=== PATIENT | female | born 1995 | race Caucasian/White ===

== ENCOUNTER 2016-08-29 15:34 | Outpatient (CLI) | payer MEDICAID ==
[2016-08-29 16:46] LABS: APPEARANCE,URINE SLIGHTLY-CLOUDY; BILIRUBIN,URINE NEGATIVE (NEGATIVE); GLUCOSE, URINE NEGATIVE (NEGATIVE); KETONES,URINE NEGATIVE (NEGATIVE); LEUKOCYTE ESTERASE,URINE MODERATE (NEGATIVE); NITRITE,URINE NEGATIVE (NEGATIVE); PROTEIN,URINE NEGATIVE (NEGATIVE); URINE BARBITURATES SCREEN NEGATIVE; URINE METHADONE SCREEN NEGATIVE; URINE OPIATES LOW NEGATIVE; URINE PHENCYCLIDINE SCREEN NEGATIVE; URINE SPECIFIC GRAVITY 1.013; UROBILINOGEN,URINE NEGATIVE mg/dL (<2.0)
== END 2016-08-29 17:11 | disposition home or self-care (01) ==
LOC: LC 15:34
PROVIDERS: ATTEND Obstetrics & Gynecology
PROC: 4A1HXCZ Monitoring of Products of Conception, Cardiac Rate, External Approach (ICD-10-PCS; principal; 2016-08-29)
DX: O48.0 Post-term pregnancy (principal); Z3A.40 40 weeks gestation of pregnancy
CPT/HCPCS: 59025; 80307; 81001

== ENCOUNTER 2016-09-05 02:44 | Inpatient (IN) | payer MEDICAID ==
[2016-09-05] MEDS ORDERED: PENICILLIN G-K 5 MILLION UNIT VIAL ONE ×5 (03:13→20:03)
[2016-09-05 03:24] LABS: APPEARANCE,URINE CLEAR; BILIRUBIN,URINE NEGATIVE (NEGATIVE); GLUCOSE, URINE NEGATIVE (NEGATIVE); KETONES,URINE NEGATIVE (NEGATIVE); LEUKOCYTE ESTERASE,URINE NEGATIVE (NEGATIVE); NITRITE,URINE NEGATIVE (NEGATIVE); PROTEIN,URINE NEGATIVE (NEGATIVE); URINE SPECIFIC GRAVITY 1.008; UROBILINOGEN,URINE NEGATIVE mg/dL (<2.0)
[2016-09-05 03:28] LABS: AMNISURE (ROM) POSITIVE (NEGATIVE)
[2016-09-05] MEDS ORDERED: PENICILLIN G POTASSIUM 5,000,000 UNIT in DEXTROSE 5%-WATER 100 ML IV ONE (03:29)
[2016-09-05 03:52] LABS: ABSOLUTE EOSINOPHILS # (AUTO) 0.1 10^3/uL (0.0-0.6); ABSOLUTE LYMPHOCYTES (AUTO) 2.1 10^3/uL (0.5-4.7); ABSOLUTE MONOCYTES (AUTO) 0.6 10^3/uL (0.1-1.4); ABSOLUTE NEUT (AUTO) 8.2 10^3/uL (1.7-8.2); BASOPHILS % (AUTO) 0.2 % (0-2); EOSINOPHILS % (AUTO) 1.2 % (0-6); HEMOGLOBIN 10.4 g/dL (12.0-15.5); HGB HCT DIFFERENCE 0.2; MEAN CORPUSCULAR HEMOGLOBIN 27.2 pg (27.0-33.4); MEAN CORPUSCULAR HGB CONC 33.6 g/dL (32.0-36.0); MEAN CORPUSCULAR VOLUME 81 fl (80-97); MONOCYTES % (AUTO) 5.4 % (3-13); RED BLOOD COUNT 3.83 10^6/uL (3.72-5.28); SEGMENTED NEUTROPHILS % (AUTO) 74.2 % (42-78)
[2016-09-05] MEDS: RINGERS SOLUTION,LACTATED 1,000 ML IV PRN ×2 (04:00→11:35)
[2016-09-05 04:16] LABS: URINE BARBITURATES SCREEN NEGATIVE; URINE METHADONE SCREEN NEGATIVE; URINE OPIATES LOW NEGATIVE; URINE PHENCYCLIDINE SCREEN NEGATIVE
[2016-09-05] MEDS ORDERED: OXYTOCIN/NORMAL SALINE 20 UNIT/1,000 ML RTUINJ ONE ×3 (05:57→22:03)
[2016-09-05] MEDS ORDERED: OXYTOCIN/NORMAL SALINE 1,000 ML IV PRN ×2 (06:01→23:39)
[2016-09-05] MEDS ORDERED: PENICILLIN G POTASSIUM 2,500,000 UNIT in DEXTROSE 5%-WATER 50 ML IV SCH (07:30)
--- NOTE | 2016-09-05 08:00 | L&D Flow Sheet ---
LD Flowsheet Datetime Report Generated by CPN: 09/05/2016 08:00 Datetime: 09/05/2016 07:45 Pitocin (milliunit): Pitocin Remains (milliunits) @ (Annotations: 6) ([facility], RN) Datetime: 09/05/2016 07:35 NBP Sys/Li/Mean (mmHg): 122 (QS system process) : 58 (QS system process) : 84 (QS system process) Pulse: 90 (QS system process) Respirations: 16 (Negra Marhefka, RN) Temperature (F): 98.5 (Negra Marhefka, RN) Temperature (C): 36.9 (QS system process) Temperature Route: Oral (Negra Marhefka, RN) Level of Consciousness: Fully Conscious (Nerga Marhefka, RN) DTR's/Clonus: DTRs 2+; No Clonus (Negra Marhefka, RN) Headache: Denies (Negra Marhefka, RN) Breath Sounds, Left: Clear and Equal (Negra Marhefka, RN) Breath Sounds, Right: Clear and Equal (Negra Marhefka, RN) Nausea/Vomiting: Denies (Negra Marhefka, RN) RUQ Epigastric Pain: Denies (Negra Marhefka, RN) LaborFlag: Labor (QS system process) Datetime: 09/05/2016 07:31 Communication Comments: Dr. Lopez called L_D. Report including SROM, GBS pos, FHR, UC pattern, Pitocin. Plan of care discussed. No new orders received. (Anastasia Small RN) Datetime: 09/05/2016 07:30 Pitocin (milliunit): Pitocin Increased to (milliunits) @ (Annotations: 6) (Negra Goodman RN) Datetime: 09/05/2016 07:29 Pain Scale: 3 (Negra Goodman RN) Pain Presence: Intermittent (Negra Goodman RN) Pain Type: Contraction (Negra Goodman, RN) Pain Location: Abdomen; Back (Negra Goodman, RN) Pain Goal: 0 (Negra Goodman RN) Pain Relief Measures: Comfort Measures (Negra Goodman RN) Comfort Measures: Breathing/Relaxation; Rocking Chair (Negra Goodman RN) LaborFlag: Labor (QS system process) Datetime: 09/05/2016 07:15 Monitor Mode: External (Negra Goodman, RN) Frequency (min): 2-4 (Negra Goodman RN) Quality: Moderate (Negra Marhefka, RN) Duration (sec): 80-100 (Negra Marhefka, RN) Resting Tone (Palpate): Relaxed (Negra Marhefka, RN) Monitor Mode: External US (Negra Marhefka, RN) FHR Baseline Rate : 135 (Negra Marhefka, RN) FHR Baseline Changes: No Baseline Change (Negra Marhefka, RN) Variability: Moderate 6-25 bpm (Negra Marhefka, RN) Accelerations: 15X15 (Negra Marhefka, RN) Decelerations: None (Negra Marhefka, RN) Datetime: 09/05/2016 07:10 Communication: Report Given to @ R Rex RN (Magalys Parra, RN) Datetime: 09/05/2016 07:06 I/O Interventions: Up to BR (Negra Marhefka, RN) Datetime: 09/05/2016 07:05 NBP Sys/Li/Mean (mmHg): 126 (QS system process) : 59 (QS system process) : 85 (QS system process) Pulse: 93 (QS system process) LaborFlag: Labor (QS system process) Datetime: 09/05/2016 07:00 Monitor Mode: External; Palpation (Magalys Parra, RN) Frequency (min): 4-4.5 (Magalys Ledgerwood, RN) Quality: Mild/Moderate (Magalys Ledgerwood, RN) Duration (sec): 50-80 (Magalys Ledgerwood, RN) Duration Criteria: Less than Two 120 Second Contractions (Magalys Ledgerwood, RN) Pattern: Normal: <= 5 Contractions in 10 Minutes (Magalys Ledgerwood, RN) Resting Tone (Palpate): Relaxed (Magalys Ledgerwood, RN) Monitor Mode: External US (Magalys Noamgerras, RN) FHR Baseline Rate : 135 (Magalys Ledgerwood, RN) FHR Baseline Changes: No Baseline Change (Magalys Ledgerwood, RN) Variability: Moderate 6-25 bpm (Magalys Ledgerwood, RN) Accelerations: 15X15 (Magalys Ledgerwood, RN) Decelerations: None (Magalys Ledgerwood, RN) Pitocin (milliunit): Pitocin Remains (milliunits) @ 4 (Magalys Ledgerwood, RN) Datetime: 09/05/2016 06:45 Monitor Mode: External; Palpation (Magalys Ledgerwood, RN) Frequency (min): 2.5-3.5 (Magalys Ledgerwood, RN) Quality: Mild/Moderate (Magalys Ledgerwood, RN) Duration (sec): 50-80 (Magalys Ledgerwood, RN) Duration Criteria: Less than Two 120 Second Contractions (Magalys Ledgerwood, RN) Pattern: Normal: <= 5 Contractions in 10 Minutes (Magalys Ledgerwood, RN) Resting Tone (Palpate): Relaxed (Magalys Ledgerwood, RN) Monitor Mode: External US (Magalys Ledgerwood, RN) FHR Baseline Rate : 135 (Magalys Ledgerwood, RN) FHR Baseline Changes: No Baseline Change (Magalys Ledgerwood, RN) Variability: Moderate 6-25 bpm (Magalys Ledgerwood, RN) Accelerations: 15X15 (Magalys Ledgerwood, RN) Decelerations: None (Magalys Ledgerwood, RN) Pitocin (milliunit): Pitocin Remains (milliunits) @ 4 (Magalys Ledgerwood, RN) Datetime: 09/05/2016 06:40 Pitocin (milliunit): Pitocin Increased to (milliunits) @ 4 (Magalys Ledgerwood, RN) Datetime: 09/05/2016 06:35 NBP Sys/Li/Mean (mmHg): 124 (QS system process) : 66 (QS system process) : 87 (QS system process) Pulse: 83 (QS system process) LaborFlag: Labor (QS system process) Datetime: 09/05/2016 06:30 Monitor Mode: External; Palpation (Magalys Noamgerwood, RN) Frequency (min): 4.5-5.5 (Magalys Ledgerwood, RN) Quality: Mild/Moderate (Magalys Ledgerwood, RN) Duration (sec): 40-100 (Magalys Ledgerwood, RN) Duration Criteria: Less than Two 120 Second Contractions (Magalys Ledgerwood, RN) Pattern: Normal: <= 5 Contractions in 10 Minutes (Magalys Ledgerwood, RN) Resting Tone (Palpate): Relaxed (Magalys Ledgerwood, RN) Monitor Mode: External US (Magalys Ledgerwood, RN) FHR Baseline Rate : 135 (Magalys Ledgerwood, RN) FHR Baseline Changes: No Baseline Change (Magalys Ledgerwood, RN) Variability: Moderate 6-25 bpm (Magalys Ledgerwood, RN) Accelerations: None (Magalys Ledgerwood, RN) Decelerations: None (Magalys Ledgerwood, RN) Pitocin (milliunit): Pitocin Remains (milliunits) @ 2 (Magalys Ledgerwood, RN) Datetime: 09/05/2016 06:15 Monitor Mode: External; Palpation (Magalys Ledgerwood, RN) Frequency (min): 10.5 (Magalys Ledgerwood, RN) Quality: Mild/Moderate (Magalys Ledgerwood, RN) Duration (sec): 80 (Magalys Ledgerwood, RN) Duration Criteria: Less than Two 120 Second Contractions (Magalys Ledgerwood, RN) Pattern: Normal: <= 5 Contractions in 10 Minutes (Magalys Ledgerwood, RN) Resting Tone (Palpate): Relaxed (Magalys Ledgerwood, RN) Monitor Mode: External US (Magalys Ledgerwood, RN) FHR Baseline Rate : 135 (Magalys Ledgerwood, RN) FHR Baseline Changes: No Baseline Change (Magalys Ledgerwood, RN) Variability: Moderate 6-25 bpm (Magalys Ledgerwood, RN) Accelerations: 15X15 (Magalys Ledgerwood, RN) Decelerations: None (Magalys Ledgerwood, RN) Pitocin (milliunit): Pitocin Remains (milliunits) @ 2 ([facility], RN) Datetime: 09/05/2016 06:10 Pitocin (milliunit): Pitocin Started (milliunits) @ 2 ([facility], RN) Datetime: 09/05/2016 06:05 NBP Sys/Li/Mean (mmHg): 123 (QS system process) : 63 (QS system process) : 86 (QS system process) Pulse: 85 (QS system process) Respirations: 14 ([facility], RN) LaborFlag: Labor (QS system process) Datetime: 09/05/2016 06:00 Monitor Mode: External; Palpation (Magalys Ledgerwood, RN) Frequency (min): 2.5-5.5 (Magalys Ledgerwood, RN) Quality: Mild/Moderate (Magalys Ledgerwood, RN) Duration (sec): 60-120 (Magalys Ledgerwood, RN) Duration Criteria: Less than Two 120 Second Contractions (Magalys Ledgerwood, RN) Pattern: Normal: <= 5 Contractions in 10 Minutes (Magalys Ledgerwood, RN) Resting Tone (Palpate): Relaxed (Magalys Ledgerwood, RN) Monitor Mode: External US (Magalys Ledgerwood, RN) FHR Baseline Rate : 135 (Magalys Ledgerwood, RN) FHR Baseline Changes: No Baseline Change (Magalys Ledgerwood, RN) Variability: Moderate 6-25 bpm (Magalys Ledgerwood, RN) Accelerations: 15X15 (Magalys Ledgerwood, RN) Decelerations: None (Magalys Ledgerwood, RN) Datetime: 09/05/2016 05:35 NBP Sys/Li/Mean (mmHg): 122 (QS system process) : 70 (QS system process) : 89 (QS system process) Pulse: 86 (QS system process) LaborFlag: Labor (QS system process) Datetime: 09/05/2016 05:32 Patient Position/Activity: Right Tilt (Magalys Ledgerwood, RN) Datetime: 09/05/2016 05:23 Monitor Interventions for FHR: Ultrasound Adjusted (Magalys Ledgerwood, RN) Datetime: 09/05/2016 05:20 Patient Position/Activity: Left Tilt (Magalys Ledgerwood, RN) Datetime: 09/05/2016 04:17 Patient Care Comments: monitors off, pt incouraged to walk (Magalys Ledgerwood, RN) Datetime: 09/05/2016 04:16 Monitor Mode: External; Palpation (Magalys Ledgerwood, RN) Frequency (min): 5.5-6.5 (Magalys Ledgerwood, RN) Quality: Mild/Moderate (Magalys Ledgerwood, RN) Duration (sec): 90-120 (Magalys Ledgerwood, RN) Duration Criteria: Less than Two 120 Second Contractions (Magalys Ledgerwood, RN) Pattern: Normal: <= 5 Contractions in 10 Minutes (Magalys Ledgerwood, RN) Resting Tone (Palpate): Relaxed (Magalys Ledgerwood, RN) Monitor Mode: External US (Magalys Ledgerwood, RN) FHR Baseline Rate : 135 (Magalys Ledgerwood, RN) FHR Baseline Changes: No Baseline Change (Magalys Ledgerwood, RN) Variability: Moderate 6-25 bpm (Magalys Ledgerwood, RN) Accelerations: 15X15 (Magalys Ledgerwood, RN) Decelerations: None (Magalys Ledgerwood, RN) Datetime: 09/05/2016 04:00 Monitor Mode: External; Palpation (Magalys Ledgerwood, RN) Frequency (min): irreg (Magalys Ledgerwood, RN) Quality: Mild/Moderate (Magalys Ledgerwood, RN) Duration (sec): 60-100 (Magalys Ledgerwood, RN) Duration Criteria: Less than Two 120 Second Contractions (Magalys Ledgerwood, RN) Pattern: Normal: <= 5 Contractions in 10 Minutes (Magalys Ledgerwood, RN) Resting Tone (Palpate): Relaxed (Magalys Ledgerwood, RN) Monitor Mode: External US (Magalys Ledgerwood, RN) FHR Baseline Rate : 135 (Magalys Ledgerwood, RN) FHR Baseline Changes: No Baseline Change (Magalys Ledgerwood, RN) Variability: Moderate 6-25 bpm (Magalys Ledgerwood, RN) Accelerations: 15X15 (Magalys Ledgerwood, RN) Decelerations: None (Magalys Ledgerwood, RN) Datetime: 09/05/2016 03:56 Antibiotics: Penicillin IV (Units) @ 5 mil (Magalys Ledgerwood, RN) Datetime: 09/05/2016 03:55 IV/Blood Work: IV Started; New IV Bag Hung (Magalys Parra RN) Patient Care Comments: 18 G left hand by Daiana Parra RN (Magalys Parra RN) Datetime: 09/05/2016 03:40 Procedures: Labs Drawn (Magalys Parra RN) Datetime: 09/05/2016 03:31 Communication: Provider Orders Received; Call/Page Placed to Provider (Magalys Parra RN) Communication Comments: Dr Bradley was notified via phone of pt's complaints, VE, labs, FHR. Order to walk till 6 am received. Epidural is available to pt, at 6 am start Pitocin. (Magalys Ledgerwood, RN) Datetime: 09/05/2016 03:30 Monitor Mode: External; Palpation (Magalys Ledgerwood, RN) Frequency (min): irreg (Magalys Ledgerwood, RN) Quality: Mild/Moderate (Magalys Ledgerwood, RN) Duration (sec): 70-80 (Magalys Ledgerwood, RN) Duration Criteria: Less than Two 120 Second Contractions (Magalys Ledgerwood, RN) Pattern: Normal: <= 5 Contractions in 10 Minutes (Magalys Ledgerwood, RN) Resting Tone (Palpate): Relaxed (Magalys Ledgerwood, RN) Monitor Mode: External US (Magalys Ledgerwood, RN) FHR Baseline Rate : 135 (Magalys Ledgerwood, RN) FHR Baseline Changes: No Baseline Change (Magalys Ledgerwood, RN) Variability: Moderate 6-25 bpm (Magalys Ledgerwood, RN) Accelerations: None (Magalys Ledgerwood, RN) Decelerations: None (Magalys Ledgerwood, RN) Datetime: 09/05/2016 03:29 NBP Sys/Li/Mean (mmHg): 108 (QS system process) : 58 (QS system process) : 78 (QS system process) Pulse: 94 (QS system process) LaborFlag: Labor (QS system process) Datetime: 09/05/2016 02:59 NBP Sys/Li/Mean (mmHg): 100 (QS system process) : 61 (QS system process) : 70 (QS system process) Pulse: 93 (QS system process) Pain Scale: 1 (Magalys Parra RN) Pain Presence: Intermittent (Magalys Parra RN) Pain Type: Contraction (Magalys Parra RN) Pain Location: Back (Magalys Parra RN) Pain Relief Measures: Comfort Measures (Magalys Parra RN) Pain Coping: Talking Through Contractions (Annotations: no distress noted) (Magalys Parra RN) Vaginal Bleeding: None (Magalys Parra RN) Level of Consciousness: Fully Conscious (Magalys Parra RN) DTR's/Clonus: DTRs 2+; No Clonus (Magalys Parra RN) Headache: Denies (Magalys Parra RN) Breath Sounds, Left: Clear and Equal (Magalys Parra RN) Breath Sounds, Right: Clear and Equal (Magalys Parra RN) Nausea/Vomiting: Denies (Magalys Parra RN) RUQ Epigastric Pain: Denies (Magalys Parra RN) Instructional Method: Demo; Verbal; Patient Instructed (Magalys Parra RN) Plan of Care: Plan of Care Discussed; Vaginal Delivery; Labor (Magalys Parra RN) Unit Routine: Queen to Room; Call Agudelo; Bed; Visiting Policy; Waiting Areas; Handwashing; Monitoring; Safety/Fall Risk Prevention (Magalys Parra RN) LaborFlag: Labor (QS system process) Datetime: 09/05/2016 02:55 Dilatation (cm): 1.5 (Magalys Parra RN) Effacement (%): 60 (Magalys Parra RN) Station: -2 (Magalys Parra RN) Exam by: Daiana Parra RN (Magalys Parra RN) Datetime: 09/05/2016 02:40 Stage of : Labor (Magalys Parra RN)
[2016-09-05] MEDS: PENICILLIN G-K 5 MILLION UNIT VIAL IV SCH ×4 (08:07→20:09)
[2016-09-05] MEDS ORDERED: ONDANSETRON HCL INJ/PF 4 MG/2 ML SDV ONE (08:18)
[2016-09-05] MEDS ORDERED: METOCLOPRAMIDE HCL INJ/PF 10 MG/2 ML SDV ONE (08:18)
[2016-09-05] MEDS ORDERED: PHENYLEPHRINE HCL INJ/PF 10 MG/1 ML SDV ONE (08:18)
[2016-09-05] MEDS ORDERED: DEXAMETHASONE SOD PHOSPHATE INJ 4 MG/1 ML VIAL ONE (08:18)
[2016-09-05] MEDS ORDERED: KETOROLAC TROMETHAMINE 60 MG/2 ML SDV ONE (08:18)
[2016-09-05] MEDS ORDERED: EPHEDRINE SULFATE INJ 50 MG/1 ML AMPULE ONE ×2 (08:46→22:03)
[2016-09-05] MEDS ORDERED: FENTANYL/BUPIVACAINE/NS/PF 200 MCG/100 ML RTUINJ EPI ONE (08:47)
[2016-09-05] MEDS ORDERED: BUPIVACAINE HCL 0.25 % INJ/PF (2.5 MG/1 ML) 30 ML VIAL ONE (08:47)
[2016-09-05] MEDS ORDERED: BUPIVACAINE HCL 0.25 % INJ/PF (2.5 MG/1 ML) 30 ML VIAL INFIL ONE (08:49)
--- NOTE | 2016-09-05 10:00 | L&D Flow Sheet ---
LD Flowsheet Datetime Report Generated by CPN: 09/05/2016 10:00 Datetime: 09/05/2016 09:59 NBP Sys/Li/Mean (mmHg): 118 (QS system process) : 60 (QS system process) : 86 (QS system process) Pulse: 114 (QS system process) LaborFlag: Labor (QS system process) Datetime: 09/05/2016 09:58 NBP Sys/Li/Mean (mmHg): 124 (QS system process) : 59 (QS system process) : 85 (QS system process) Pulse: 92 (QS system process) LaborFlag: Labor (QS system process) Datetime: 09/05/2016 09:56 NBP Sys/Li/Mean (mmHg): 124 (QS system process) : 58 (QS system process) : 84 (QS system process) Pulse: 86 (QS system process) LaborFlag: Labor (QS system process) Datetime: 09/05/2016 09:55 NBP Sys/Li/Mean (mmHg): 127 (QS system process) : 60 (QS system process) : 86 (QS system process) Pulse: 95 (QS system process) LaborFlag: Labor (QS system process) Datetime: 09/05/2016 09:54 NBP Sys/Li/Mean (mmHg): 134 (QS system process) : 60 (QS system process) : 87 (QS system process) Pulse: 97 (QS system process) LaborFlag: Labor (QS system process) Datetime: 09/05/2016 09:53 Epidural Procedure: Cath Placed (Chandrika Cal, RN) Epidural Procedure: Test Dose (Chandrika Cal, RN) Datetime: 09/05/2016 09:45 Procedure Verify: Correct Patient Identity; Correct Side and Site are Marked; Accurate Procedure Consent Form; Agreement on Procedure to be Done; Correct Patient Position (Chandrika Cal, RN) Datetime: 09/05/2016 09:44 Anesthesia Comments: Dr. Trent at bedside (Chandrika Cal, RN) Datetime: 09/05/2016 09:43 Epidural Positioning: Sitting (Chandrika Cal, RN) Datetime: 09/05/2016 09:36 Procedure Verify: Correct Patient Identity; Correct Side and Site are Marked; Accurate Procedure Consent Form; Agreement on Procedure to be Done; Correct Patient Position; Relevant Images and Results are Properly Labeled and Displayed; Addressed Need to Administer Antibiotics or Fluids for Irrigation; Safety Precautions Based on Patient History or Medication Use (Negra Goodman RN) Anesthesia Plans: Epidural (Negra Goodman RN) Epidural Positioning: Sitting (Negra Goodman RN) Datetime: 09/05/2016 09:00 Monitor Mode: External (Negra Marhefka, RN) Frequency (min): 1-3 (Negra Marhefka, RN) Quality: Moderate (Negra Marhefka, RN) Duration (sec): 60-110 (Negra Marhefka, RN) Resting Tone (Palpate): Relaxed (Negra Marhefka, RN) Monitor Mode: External US (Negra Marhefka, RN) FHR Baseline Rate : 135 (Negra Marhefka, RN) FHR Baseline Changes: No Baseline Change (Negra Marhefka, RN) Variability: Moderate 6-25 bpm (Negra Marhefka, RN) Accelerations: 15X15 (Negra Marhefka, RN) Decelerations: None (Negra Marhefka, RN) Pitocin (milliunit): Pitocin Remains (milliunits) @ (Annotations: 10) (Negra Marhefka, RN) Datetime: 09/05/2016 08:45 Monitor Mode: External (Negra Marhefka, RN) Frequency (min): 2-3 (Negra Duranfkristina, RN) Quality: Moderate (Negra Garzonfka, RN) Duration (sec): 70-120 (Negra Goodman, RN) Resting Tone (Palpate): Relaxed (Negra Goodman, RN) Monitor Mode: External US (Negra Goodman, RN) FHR Baseline Rate : 135 (Negra Garzonfka, RN) FHR Baseline Changes: No Baseline Change (Negra Garzonfka, RN) Variability: Moderate 6-25 bpm (Negra Marsusanfka, RN) Accelerations: 15X15 (Negra Marsusanfka, RN) Decelerations: None (Negra Garzonfka, RN) Pitocin (milliunit): Pitocin Remains (milliunits) @ (Annotations: 10) (Negra Duranfka, RN) Datetime: 09/05/2016 08:43 Dilatation (cm): 5.0 (Negra Goodman, RN) Effacement (%): 80 (Negra Goodman, RN) Station: -1 (Negra Goodman, RN) Exam by: Komal Goodman RN (Negra Garzonfkristina, RN) Datetime: 09/05/2016 08:30 Monitor Mode: External (Negra Marhefka, RN) Frequency (min): 2-2.5 (Negra Marhefka, RN) Quality: Moderate (Negra Marhefka, RN) Duration (sec): 50-80 (Negra Marhefka, RN) Resting Tone (Palpate): Relaxed (Negra Marhefka, RN) Monitor Mode: External US (Negra Marhefka, RN) FHR Baseline Rate : 135 (Negra Marhefka, RN) FHR Baseline Changes: No Baseline Change (Negra Marhefka, RN) Variability: Moderate 6-25 bpm (Negra Marhefka, RN) Accelerations: 15X15 (Negra Marhefka, RN) Decelerations: None (Negra Marhefka, RN) Pitocin (milliunit): Pitocin Increased to (milliunits) @ (Annotations: 10) (Negra Marhefka, RN) Datetime: 09/05/2016 08:20 Patient Care Comments: pt standing at bedside. (Negra Marhefka, RN) Datetime: 09/05/2016 08:15 Monitor Mode: External (Negra Marhefka, RN) Frequency (min): 2-4 (Negra Marhefka, RN) Quality: Moderate (Negra Marhefka, RN) Duration (sec): 60-80 (Negra Marhefka, RN) Resting Tone (Palpate): Relaxed (Negra Marhefka, RN) Monitor Mode: External US (Negra Marhefka, RN) FHR Baseline Rate : 135 (Negra Marhefka, RN) FHR Baseline Changes: No Baseline Change (Negra Marhefka, RN) Variability: Moderate 6-25 bpm (Negra Marhefka, RN) Accelerations: 15X15 (Negra Marhefka, RN) Decelerations: None (Negra Marhefka, RN) Pitocin (milliunit): Pitocin Remains (milliunits) @ (Annotations: 8) (Negra Marhefka, RN) Datetime: 09/05/2016 08:14 I/O Interventions: Up to BR (Negra Marhefka, RN) Datetime: 09/05/2016 08:06 NBP Sys/Li/Mean (mmHg): 104 (QS system process) : 60 (QS system process) : 74 (QS system process) Pulse: 68 (QS system process) LaborFlag: Labor (QS system process) Datetime: 09/05/2016 08:00 Monitor Mode: External (Negra Goodman RN) Frequency (min): 2-4 (Negra Goodman RN) Quality: Moderate (Negra Goodman RN) Duration (sec): 80-100 (Negra Goodman RN) Resting Tone (Palpate): Relaxed (Negra Goodman RN) Monitor Mode: External US (Negra Goodman RN) FHR Baseline Rate : 135 (Negra Goodman RN) FHR Baseline Changes: No Baseline Change (Negra Goodman RN) Variability: Moderate 6-25 bpm (Negra Goodman RN) Accelerations: 15X15 (Negra Goodman RN) Decelerations: None (Negra Goodman RN) Pitocin (milliunit): Pitocin Increased to (milliunits) @ (Annotations: 8) (Negra Goodman RN) Antibiotics: Penicillin IV (Units) @ 2.5 Million (Negra Goodman RN)
[2016-09-05] MEDS: EPHEDRINE SULFATE INJ 50 MG/1 ML AMPULE IV PRN ×3 (10:28→10:43)
[2016-09-05] MEDS: FENTANYL/BUPIVACAINE/NS/PF 100 ML EPI PRN ×2 (11:40→19:31)
--- NOTE | 2016-09-05 12:00 | L&D Flow Sheet ---
LD Flowsheet Datetime Report Generated by CPN: 09/05/2016 12:00 Datetime: 09/05/2016 11:27 NBP Sys/Li/Mean (mmHg): 99 (QS system process) : 56 (QS system process) : 70 (QS system process) Pulse: 80 (QS system process) LaborFlag: Labor (QS system process) Datetime: 09/05/2016 11:21 NBP Sys/Li/Mean (mmHg): 98 (QS system process) : 51 (QS system process) : 72 (QS system process) Pulse: 87 (QS system process) IV/Blood Work: New IV Bag Hung (Chandrika Mccall RN) LaborFlag: Labor (QS system process) Datetime: 09/05/2016 11:17 NBP Sys/Li/Mean (mmHg): 110 (QS system process) : 56 (QS system process) : 80 (QS system process) Pulse: 83 (QS system process) Patient Position/Activity: Hands-Knees (Chandrika Mccall RN) LaborFlag: Labor (QS system process) Datetime: 09/05/2016 11:15 Monitor Mode: External (Ngera Goodman RN) Frequency (min): 3-5 (Negra Goodman RN) Quality: Moderate (Negra Goodman RN) Duration (sec): 90-220 (Negra Goodman RN) Resting Tone (Palpate): Relaxed (Negra Goodman RN) Monitor Mode: External US (Negra Goodman RN) FHR Baseline Rate : 150 (Negra Marhefka, RN) FHR Baseline Changes: No Baseline Change (Negra Marhefka, RN) Variability: Moderate 6-25 bpm (Negra Marhefka, RN) Accelerations: 15X15 (Negra Marhefka, RN) Decelerations: Late (Negra Marhefka, RN) Datetime: 09/05/2016 11:13 NBP Sys/Li/Mean (mmHg): 117 (QS system process) : 59 (QS system process) : 79 (QS system process) Pulse: 83 (QS system process) LaborFlag: Labor (QS system process) Datetime: 09/05/2016 11:06 NBP Sys/Li/Mean (mmHg): 107 (QS system process) : 63 (QS system process) : 79 (QS system process) Pulse: 73 (QS system process) LaborFlag: Labor (QS system process) Datetime: 09/05/2016 11:02 NBP Sys/Li/Mean (mmHg): 107 (QS system process) : 60 (QS system process) : 78 (QS system process) Pulse: 72 (QS system process) LaborFlag: Labor (QS system process) Datetime: 09/05/2016 11:00 Monitor Mode: External; Palpation (Negra Goodman RN) Frequency (min): 2-4 (Negra Goodman RN) Quality: Moderate (Negra Goodman RN) Duration (sec): 90-100 (Negra Goodman RN) Resting Tone (Palpate): Relaxed (Negra Goodman RN) Monitor Mode: External US (Negra Goodman RN) FHR Baseline Rate : 145 (Negra Goodman RN) FHR Baseline Changes: No Baseline Change (Negra Goodman RN) Variability: Moderate 6-25 bpm (Negra Goodman RN) Accelerations: 15X15 (Negra Goodman RN) Decelerations: Late; Variable (Negra Goodman RN) Dilatation (cm): 7.0 (Negra Goodman RN) Effacement (%): 90 (Negra Goodman RN) Station: -1 (Negra Goodman RN) Exam by: Komal Goodman RN (Negra Goodman RN) Vaginal Bleeding: Normal Show (Negra Goodman RN) Cervix, Consistency: Soft (Negra Goodman RN) Cervix, Position: Midposition (Negra Goodman RN) Datetime: 09/05/2016 10:56 NBP Sys/Li/Mean (mmHg): 110 (QS system process) : 57 (QS system process) : 77 (QS system process) Pulse: 93 (QS system process) Pitocin (milliunit): Pitocin Discontinued (Chandrika Mccall RN) Oxygen Method: Non-Rebreather (Chandrika Mccall RN) LaborFlag: Labor (QS system process) Datetime: 09/05/2016 10:52 NBP Sys/Li/Mean (mmHg): 115 (QS system process) : 60 (QS system process) : 80 (QS system process) Pulse: 87 (QS system process) LaborFlag: Labor (QS system process) Datetime: 09/05/2016 10:47 NBP Sys/Li/Mean (mmHg): 118 (QS system process) : 62 (QS system process) : 83 (QS system process) Pulse: 94 (QS system process) LaborFlag: Labor (QS system process) Datetime: 09/05/2016 10:45 Monitor Mode: External (Negra Marhefka, RN) Frequency (min): 2-4 (Negra Marhefka, RN) Quality: Moderate to Strong (Negra Marhefka, RN) Duration (sec): 60-70 (Negra Marhefka, RN) Resting Tone (Palpate): Relaxed (Negra Marhefka, RN) Monitor Mode: External US (Negra Marhefka, RN) FHR Baseline Rate : 145 (Negra Marhefka, RN) FHR Baseline Changes: No Baseline Change (Negra Marhefka, RN) Variability: Moderate 6-25 bpm (Negra Marhefka, RN) Accelerations: 15X15 (Negra Marhefka, RN) Decelerations: Late (Negra Marhefka, RN) Datetime: 09/05/2016 10:43 Anesthesia Interventions Other: Ephedrine (Negra Goodman, RN) Anesthesia Comments: 5 mg (Negra Goodman, RN) Datetime: 09/05/2016 10:42 NBP Sys/Li/Mean (mmHg): 115 (QS system process) : 59 (QS system process) : 81 (QS system process) Pulse: 94 (QS system process) Patient Position/Activity: Right Lateral; Peanut Ball; Low Fowlers (Negra Goodman, RN) LaborFlag: Labor (QS system process) Datetime: 09/05/2016 10:41 Communication Comments: Dr. Lopez at bedside to assess patient (Chandrika Mccall, RN) Datetime: 09/05/2016 10:36 NBP Sys/Li/Mean (mmHg): 95 (QS system process) : 46 (QS system process) : 67 (QS system process) Pulse: 74 (QS system process) Pitocin (milliunit): Pitocin Decreased to (milliunits) @ 4 (Negra Goodman, RN) LaborFlag: Labor (QS system process) Datetime: 09/05/2016 10:35 NBP Sys/Li/Mean (mmHg): 98 (QS system process) : 52 (QS system process) : 72 (QS system process) Pulse: 73 (QS system process) LaborFlag: Labor (QS system process) Datetime: 09/05/2016 10:32 NBP Sys/Li/Mean (mmHg): 95 (QS system process) : 48 (QS system process) : 68 (QS system process) Pulse: 74 (QS system process) LaborFlag: Labor (QS system process) Datetime: 09/05/2016 10:31 Medication Comments: ephedrine 5mg IV (Chandrika Cal, RN) Anesthesia Interventions Other: Ephedrine (Chandrika Cal, RN) Datetime: 09/05/2016 10:30 NBP Sys/Li/Mean (mmHg): 84 (QS system process) : 45 (QS system process) : 60 (QS system process) Pulse: 72 (QS system process) Monitor Mode: External (Negra Marhefka, RN) Frequency (min): 2-3 (Negra Marhefka, RN) Quality: Moderate to Strong (Negra Marhefka, RN) Duration (sec): 50-140 (Negra Marhefka, RN) Resting Tone (Palpate): Relaxed (Negra Marhefka, RN) Monitor Mode: External US (Negra Marhefka, RN) FHR Baseline Rate : 140 (Negra Marhefka, RN) FHR Baseline Changes: No Baseline Change (Negra Marhefka, RN) Variability: Moderate 6-25 bpm (Negra Marhefka, RN) Accelerations: None (Negra Marhefka, RN) Decelerations: Late (Negra Marhefka, RN) LaborFlag: Labor (QS system process) Datetime: 09/05/2016 10:28 Medication Comments: ephedrine 5 mg IV (Chandrika Mccall, RN) Anesthesia Interventions Other: Ephedrine (Chandrika Cal, RN) Datetime: 09/05/2016 10:27 NBP Sys/Li/Mean (mmHg): 86 (QS system process) NBP Sys/Li/Mean (mmHg): 85 (QS system process) : 48 (QS system process) : 46 (QS system process) : 63 (QS system process) : 62 (QS system process) Pulse: 70 (QS system process) Pulse: 76 (QS system process) IV/Blood Work: IV Bolus Started (Chandrika Mccall RN) LaborFlag: Labor (QS system process) Datetime: 09/05/2016 10:21 NBP Sys/Li/Mean (mmHg): 109 (QS system process) : 58 (QS system process) : 81 (QS system process) Pulse: 88 (QS system process) LaborFlag: Labor (QS system process) Datetime: 09/05/2016 10:17 NBP Sys/Li/Mean (mmHg): 109 (QS system process) : 53 (QS system process) : 77 (QS system process) Pulse: 88 (QS system process) LaborFlag: Labor (QS system process) Datetime: 09/05/2016 10:15 Monitor Mode: External (Negra Goodman RN) Frequency (min): 2-3 (Negra Goodman RN) Quality: Moderate (Negra Goodman RN) Duration (sec): 70-90 (Negra Goodman RN) Resting Tone (Palpate): Relaxed (Negra Goodman RN) Monitor Mode: External US (Negra Goodman RN) Monitor Interventions for FHR: Ultrasound Adjusted (Negra Goodman RN) FHR Baseline Rate : 135 (Negra Goodman RN) FHR Baseline Changes: No Baseline Change (Negra Goodman RN) Variability: Moderate 6-25 bpm (Negra Goodman RN) Accelerations: None (Negra Goodman RN) Comments: RN @ bedside adjusting ultrasound (Negra Goodman RN) Pitocin (milliunit): Pitocin Remains (milliunits) @ (Annotations: 8) (Negra Goodman RN) Datetime: 09/05/2016 10:13 NBP Sys/Li/Mean (mmHg): 107 (QS system process) : 53 (QS system process) : 70 (QS system process) Pulse: 94 (QS system process) LaborFlag: Labor (QS system process) Datetime: 09/05/2016 10:06 NBP Sys/Li/Mean (mmHg): 103 (QS system process) : 54 (QS system process) : 76 (QS system process) Pulse: 106 (QS system process) LaborFlag: Labor (QS system process) Datetime: 09/05/2016 10:05 NBP Sys/Li/Mean (mmHg): 115 (QS system process) : 56 (QS system process) : 81 (QS system process) Pulse: 86 (QS system process) LaborFlag: Labor (QS system process) Datetime: 09/05/2016 10:04 NBP Sys/Li/Mean (mmHg): 144 (QS system process) : 62 (QS system process) : 89 (QS system process) Pulse: 93 (QS system process) LaborFlag: Labor (QS system process) Datetime: 09/05/2016 10:03 Dilatation (cm): 7.0 (Chandrika Cal, RN) Effacement (%): 80 (Chandrika Cal, RN) Station: -1 (Chandrika Cal, RN) Exam by: Komal Goodman RN (Chandrika Cal, RN) Datetime: 09/05/2016 10:02 NBP Sys/Li/Mean (mmHg): 124 (QS system process) : 58 (QS system process) : 83 (QS system process) Pulse: 89 (QS system process) I/O Interventions: Baptiste Cath Inserted (Negra Goodman RN) LaborFlag: Labor (QS system process) Datetime: 09/05/2016 10:01 NBP Sys/Li/Mean (mmHg): 114 (QS system process) NBP Sys/Li/Mean (mmHg): 113 (QS system process) : 55 (QS system process) : 59 (QS system process) : 79 (QS system process) : 82 (QS system process) Pulse: 93 (QS system process) Pulse: 83 (QS system process) LaborFlag: Labor (QS system process) Datetime: 09/05/2016 10:00 NBP Sys/Li/Mean (mmHg): 124 (QS system process) : 59 (QS system process) : 85 (QS system process) Pulse: 106 (QS system process) Monitor Mode: External (Negra Goodman RN) Frequency (min): 2-4 (Negra Goodman RN) Quality: Moderate (Negra Goodman RN) Duration (sec): 50-80 (Negra Goodman RN) Resting Tone (Palpate): Relaxed (Negra Goodman RN) Monitor Mode: External US (Negra Goodman RN) FHR Baseline Rate : 135 (Negra Goodman RN) FHR Baseline Changes: No Baseline Change (Negra Goodman RN) Variability: Moderate 6-25 bpm (Negra Goodman RN) Accelerations: 15X15 (Negra Goodman RN) Decelerations: None (Negra Goodman RN) Pitocin (milliunit): Pitocin Remains (milliunits) @ (Annotations: 8) (Negra Goodman RN) LaborFlag: Labor (QS system process)
--- NOTE | 2016-09-05 14:00 | L&D Flow Sheet ---
LD Flowsheet Datetime Report Generated by CPN: 09/05/2016 14:00 Datetime: 09/05/2016 13:53 NBP Sys/Li/Mean (mmHg): 105 (QS system process) : 56 (QS system process) : 75 (QS system process) Pulse: 82 (QS system process) LaborFlag: Labor (QS system process) Datetime: 09/05/2016 13:51 NBP Sys/Li/Mean (mmHg): 103 (QS system process) : 54 (QS system process) : 74 (QS system process) Pulse: 76 (QS system process) LaborFlag: Labor (QS system process) Datetime: 09/05/2016 13:49 NBP Sys/Li/Mean (mmHg): 105 (QS system process) : 51 (QS system process) : 72 (QS system process) Pulse: 76 (QS system process) LaborFlag: Labor (QS system process) Datetime: 09/05/2016 13:47 NBP Sys/Li/Mean (mmHg): 98 (QS system process) : 53 (QS system process) : 72 (QS system process) Pulse: 73 (QS system process) LaborFlag: Labor (QS system process) Datetime: 09/05/2016 13:45 NBP Sys/Li/Mean (mmHg): 104 (QS system process) : 53 (QS system process) : 77 (QS system process) Pulse: 85 (QS system process) LaborFlag: Labor (QS system process) Datetime: 09/05/2016 13:43 NBP Sys/Li/Mean (mmHg): 98 (QS system process) : 56 (QS system process) : 73 (QS system process) Pulse: 79 (QS system process) LaborFlag: Labor (QS system process) Datetime: 09/05/2016 13:41 NBP Sys/Li/Mean (mmHg): 97 (QS system process) : 54 (QS system process) : 74 (QS system process) Pulse: 75 (QS system process) LaborFlag: Labor (QS system process) Datetime: 09/05/2016 13:39 NBP Sys/Li/Mean (mmHg): 88 (QS system process) : 48 (QS system process) : 68 (QS system process) Pulse: 73 (QS system process) LaborFlag: Labor (QS system process) Datetime: 09/05/2016 13:36 Medication Comments: 5 mg Ephedrine (Negra Marhefka, RN) Communication Comments: Dr. Lopez @ bedside to assess pt (Negra Marhefka, RN) Datetime: 09/05/2016 13:32 NBP Sys/Li/Mean (mmHg): 89 (QS system process) : 52 (QS system process) : 66 (QS system process) Pulse: 70 (QS system process) LaborFlag: Labor (QS system process) Datetime: 09/05/2016 13:18 Patient Care Comments: D5W bolus started (Chandrika Mccall RN) Datetime: 09/05/2016 13:17 NBP Sys/Li/Mean (mmHg): 98 (QS system process) : 54 (QS system process) : 73 (QS system process) Pulse: 77 (QS system process) Temperature (F): 97.6 (Negra Goodman RN) Temperature (C): 36.4 (QS system process) Temperature Route: Oral (Negra Goodman RN) LaborFlag: Labor (QS system process) Datetime: 09/05/2016 13:10 Patient Position/Activity: Trendelenburg (Chandrika Cal, RN) Datetime: 09/05/2016 13:09 Pitocin (milliunit): Pitocin Discontinued (Negra Marhefka, RN) Datetime: 09/05/2016 13:02 NBP Sys/Li/Mean (mmHg): 97 (QS system process) : 55 (QS system process) : 72 (QS system process) Pulse: 71 (QS system process) LaborFlag: Labor (QS system process) Datetime: 09/05/2016 13:00 Pitocin (milliunit): Pitocin Started (milliunits) @ 2 (Negra Goodman, RN) Datetime: 09/05/2016 12:54 Patient Position/Activity: Left Lateral; Peanut Ball (Negra Garzonkristina, RN) Datetime: 09/05/2016 12:52 Dilatation (cm): 7.0 (Chanda Bowers RN) Effacement (%): 80 (Chanda Bowers RN) Station: -1 (Chanda Bowers RN) Exam by: H. Cal, RN (Chanda Bowers, EDUARDO) Datetime: 09/05/2016 12:45 Monitor Mode: External (Negra Marhefka, RN) Frequency (min): 3-4 (Negra Marhefka, RN) Quality: Moderate (Negra Marhefka, RN) Duration (sec): 60-80 (Negra Marhefka, RN) Resting Tone (Palpate): Relaxed (Negra Marhefka, RN) Datetime: 09/05/2016 12:32 NBP Sys/Li/Mean (mmHg): 85 (QS system process) : 55 (QS system process) : 64 (QS system process) Pulse: 86 (QS system process) LaborFlag: Labor (QS system process) Datetime: 09/05/2016 12:30 Monitor Mode: External (Negra Marhefka, RN) Frequency (min): 2-4 (Negra Marhefka, RN) Quality: Moderate (Negra Marhefka, RN) Duration (sec): 60-100 (Negra Marhefka, RN) Resting Tone (Palpate): Relaxed (Negra Marhefka, RN) Datetime: 09/05/2016 12:17 NBP Sys/Li/Mean (mmHg): 99 (QS system process) : 56 (QS system process) : 70 (QS system process) Pulse: 93 (QS system process) LaborFlag: Labor (QS system process) Datetime: 09/05/2016 12:15 Monitor Mode: External (Negra Marhefka, RN) Monitor Interventions for UA: [place] Adjusted (Negra Marhefka, RN) Frequency (min): 2-6 (Negra Marhefka, RN) Quality: Moderate (Negra Marhefka, RN) Duration (sec): 80-90 (Negra Goodman, RN) Resting Tone (Palpate): Relaxed (Negra Goodman RN) Contraction Comments: RN @ bedside palpating ctxs (Negra Goodman RN) Monitor Mode: External US (Negra Goodman RN) FHR Baseline Rate : 155 (Negra Goodman, RN) FHR Baseline Changes: No Baseline Change (Negra Goodman RN) Variability: Moderate 6-25 bpm (Negra Goodman RN) Accelerations: 15X15 (Negra Goodman, RN) Decelerations: None (Negra Goodman RN) Antibiotics: Penicillin IV (Units) @ 2.5 million (Negra Goodman RN) Datetime: 09/05/2016 12:02 NBP Sys/Li/Mean (mmHg): 101 (QS system process) : 58 (QS system process) : 75 (QS system process) Pulse: 90 (QS system process) LaborFlag: Labor (QS system process) Datetime: 09/05/2016 12:00 Monitor Mode: External (Negra Goodman RN) Frequency (min): 2-4 (Negra Goodman RN) Quality: Moderate (Negra Goodman RN) Duration (sec): 60-110 (Negra Goodman RN) Resting Tone (Palpate): Relaxed (Negra Goodman RN) Monitor Mode: External US (Negra Goodman RN) FHR Baseline Rate : 150 (Negra Goodman RN) FHR Baseline Changes: No Baseline Change (Negra Goodman RN) Variability: Moderate 6-25 bpm (Negra Goodman RN) Accelerations: 15X15 (Negra Goodman RN) Decelerations: Early (Negra Goodman RN)
[2016-09-05] MEDS ORDERED: GENTAMICIN SULFATE INJ 80 MG/2 ML VIAL IV ONE (15:50)
--- NOTE | 2016-09-05 16:00 | L&D Flow Sheet ---
LD Flowsheet Datetime Report Generated by CPN: 09/05/2016 16:00 Datetime: 09/05/2016 15:54 NBP Sys/Li/Mean (mmHg): 123 (QS system process) : 73 (QS system process) : 91 (QS system process) Pulse: 134 (QS system process) LaborFlag: Labor (QS system process) Datetime: 09/05/2016 15:40 NBP Sys/Li/Mean (mmHg): 122 (QS system process) : 72 (QS system process) : 91 (QS system process) Pulse: 113 (QS system process) LaborFlag: Labor (QS system process) Datetime: 09/05/2016 15:30 Monitor Mode: External (Negra Marhefka, RN) Frequency (min): 3-4 (Negra Marhefka, RN) Quality: Moderate to Strong (Negra Marhefka, RN) Duration (sec): 80-120 (Negra Marhefka, RN) Resting Tone (Palpate): Relaxed (Nerga Marhefka, RN) Monitor Mode: External US (Negra Marhefka, RN) FHR Baseline Rate : 165 (Negra Marhefka, RN) FHR Baseline Changes: No Baseline Change (Negra Marhefka, RN) Variability: Moderate 6-25 bpm (Negra Marhefka, RN) Accelerations: 15X15 (Negra Marhefka, RN) Decelerations: None (Negra Marhefka, RN) Datetime: 09/05/2016 15:25 NBP Sys/Li/Mean (mmHg): 128 (QS system process) : 69 (QS system process) : 91 (QS system process) Pulse: 122 (QS system process) Respirations: 16 (Negra Marhefka, RN) LaborFlag: Labor (QS system process) Datetime: 09/05/2016 15:15 Monitor Mode: External (Negra Marhefka, RN) Frequency (min): 4 (Negra Marhefka, RN) Quality: Moderate to Strong (Negra Marhefka, RN) Duration (sec): 50-130 (Negra Marhefka, RN) Resting Tone (Palpate): Relaxed (Negra Marhefka, RN) Monitor Mode: External US (Negra Marhefka, RN) FHR Baseline Rate : 155 (Negra Marhefka, RN) FHR Baseline Changes: No Baseline Change (Negra Marhefka, RN) Variability: Moderate 6-25 bpm (Negra Marhefka, RN) Accelerations: 15X15 (Negra Marhefka, RN) Decelerations: Variable (Negra Marhefka, RN) Datetime: 09/05/2016 15:09 NBP Sys/Li/Mean (mmHg): 116 (QS system process) : 65 (QS system process) : 87 (QS system process) Pulse: 133 (QS system process) LaborFlag: Labor (QS system process) Datetime: 09/05/2016 15:00 Monitor Mode: External (Negra Marhefka, RN) Frequency (min): 2-3 (Negra Marhefka, RN) Quality: Moderate to Strong (Negra Marhefka, RN) Duration (sec): 50-90 (Negra Marhefka, RN) Resting Tone (Palpate): Relaxed (Negra Marhefka, RN) Monitor Mode: External US (Negra Marhefka, RN) FHR Baseline Rate : 155 (Negra Marhefka, RN) FHR Baseline Changes: No Baseline Change (Negra Marhefka, RN) Variability: Moderate 6-25 bpm (Negra Marhefka, RN) Accelerations: 15X15 (Negra Marhefka, RN) Decelerations: None (Negra Marhefka, RN) Datetime: 09/05/2016 14:55 NBP Sys/Li/Mean (mmHg): 125 (QS system process) : 71 (QS system process) : 91 (QS system process) Pulse: 125 (QS system process) LaborFlag: Labor (QS system process) Datetime: 09/05/2016 14:48 Patient Position/Activity: High Fowlers (Negra Goodman RN) Patient Care Comments: chair position (Negra Goodman RN) Datetime: 09/05/2016 14:47 Dilatation (cm): 9.5 (Negra Goodman RN) Effacement (%): 100 (Negra Goodman RN) Station: -1 (Negra Goodman RN) Exam by: Dr. Lopez (Negra Goodman RN) Datetime: 09/05/2016 14:45 Monitor Mode: External (Negra Marhefka, RN) Frequency (min): 2-5 (Negra Marhefka, RN) Quality: Moderate to Strong (Negra Marhefka, RN) Duration (sec): 70-110 (Negra Marhefka, RN) Resting Tone (Palpate): Relaxed (Negra Marhefka, RN) Monitor Mode: External US (Negra Marhefka, RN) FHR Baseline Rate : 155 (Negra Marhefka, RN) FHR Baseline Changes: No Baseline Change (Negra Marhefka, RN) Variability: Minimal - Undetectable to <=5 bpm (Negra Marhefka, RN) Accelerations: None (Negra Marhefka, RN) Decelerations: Late (Negra Marhefka, RN) Datetime: 09/05/2016 14:40 NBP Sys/Li/Mean (mmHg): 122 (QS system process) : 71 (QS system process) : 88 (QS system process) Pulse: 115 (QS system process) LaborFlag: Labor (QS system process) Datetime: 09/05/2016 14:30 Monitor Mode: External; Palpation (Negra Marhefka, RN) Frequency (min): 3-4 (Negra Marhefka, RN) Quality: Moderate to Strong (Negra Marhefka, RN) Duration (sec): 60-120 (Negra Marhefka, RN) Resting Tone (Palpate): Relaxed (Negra Marhefka, RN) Monitor Mode: External US (Nerga Marhefka, RN) FHR Baseline Rate : 150 (Negra Marhefka, RN) FHR Baseline Changes: No Baseline Change (Negra Marhefka, RN) Variability: Minimal - Undetectable to <=5 bpm (Negra Marhefka, RN) Accelerations: None (Negra Marhefka, RN) Decelerations: None (Negra Marhefka, RN) Datetime: 09/05/2016 14:26 NBP Sys/Li/Mean (mmHg): 117 (QS system process) : 64 (QS system process) : 84 (QS system process) Pulse: 79 (QS system process) Respirations: 17 (Negra Marhefka, RN) LaborFlag: Labor (QS system process) Datetime: 09/05/2016 14:17 Patient Position/Activity: Right Lateral; Peanut Ball; Trendelenburg (Negra Marhefka, RN) Datetime: 09/05/2016 14:15 Monitor Mode: External (Nerga Marhefka, RN) Frequency (min): 2-3 (Negra Marhefka, RN) Quality: Moderate (Negra Marhefka, RN) Duration (sec): 40-80 (Negra Marhefka, RN) Resting Tone (Palpate): Relaxed (Negra Marhefka, RN) Monitor Mode: External US (Negra Marhefka, RN) FHR Baseline Rate : 140 (Negra Marhefka, RN) FHR Baseline Changes: No Baseline Change (Negra Marhefka, RN) Variability: Moderate 6-25 bpm (Negra Marhefka, RN) Accelerations: 15X15 (Negra Marhefka, RN) Decelerations: None (Negra Marhefka, RN) Datetime: 09/05/2016 14:12 NBP Sys/Li/Mean (mmHg): 119 (QS system process) : 53 (QS system process) : 73 (QS system process) Pulse: 110 (QS system process) LaborFlag: Labor (QS system process) Datetime: 09/05/2016 14:00 Monitor Mode: External (Negra Goodman, RN) Frequency (min): 2-6 (Negra Goodman, RN) Quality: Moderate (Negra Lylaka, RN) Duration (sec): 50-60 (Negra Rex, RN) Resting Tone (Palpate): Relaxed (Negra Rex, RN) Monitor Mode: External US (Negra Goodman, RN) FHR Baseline Rate : 145 (Negra Rex, RN) FHR Baseline Changes: No Baseline Change (Negra Aritaka, RN) Variability: Moderate 6-25 bpm (Negra Marhefka, RN) Accelerations: 15X15 (Negra Johefka, RN) Decelerations: None (Negra Goodman, RN)
[2016-09-05] MEDS ORDERED: GENTAMICIN SULFATE 200 MG in DEXTROSE 5%-WATER 100 ML IV ONE (17:00)
--- NOTE | 2016-09-05 18:00 | L&D Flow Sheet ---
LD Flowsheet Datetime Report Generated by CPN: 09/05/2016 18:00 Datetime: 09/05/2016 17:56 NBP Sys/Li/Mean (mmHg): 112 (QS system process) : 58 (QS system process) : 79 (QS system process) Pulse: 137 (QS system process) LaborFlag: Labor (QS system process) Datetime: 09/05/2016 17:45 Monitor Mode: External (Negra Rex, RN) Frequency (min): 1-3 (Negra Marhefka, RN) Quality: Moderate to Strong (Negra Marhefka, RN) Duration (sec): 60-120 (Negra Marhefka, RN) Resting Tone (Palpate): Relaxed (Negra Marhefka, RN) Monitor Mode: External US (Negra Duranfka, RN) FHR Baseline Rate : 160 (Negra Marhefka, RN) FHR Baseline Changes: No Baseline Change (Negra Marhefka, RN) Variability: Moderate 6-25 bpm (Negra Marhefka, RN) Accelerations: 15X15 (Negra Marhefka, RN) Decelerations: None (Negra Marhefka, RN) Pitocin (milliunit): Pitocin Remains (milliunits) @ (Annotations: 12) (Negra Marhefka, RN) Datetime: 09/05/2016 17:41 NBP Sys/Li/Mean (mmHg): 119 (QS system process) : 58 (QS system process) : 78 (QS system process) Pulse: 121 (QS system process) LaborFlag: Labor (QS system process) Datetime: 09/05/2016 17:34 Antibiotics: Gentamicin IV (mg) @ 200 (Negra Marhefka, RN) Datetime: 09/05/2016 17:30 Monitor Mode: External (Negra Marhefka, RN) Frequency (min): 2-3 (Negra Marhefka, RN) Quality: Moderate to Strong (Negra Marhefka, RN) Duration (sec): 60-80 (Negra Marhefka, RN) Resting Tone (Palpate): Relaxed (Negra Marhefka, RN) Monitor Mode: External US (Negra Marhefka, RN) FHR Baseline Rate : 165 (Negra Marhefka, RN) FHR Baseline Changes: No Baseline Change (Negra Marhefka, RN) Variability: Moderate 6-25 bpm (Negra Marhefka, RN) Accelerations: 15X15 (Negra Marhefka, RN) Decelerations: Variable (Negra Marhefka, RN) Pitocin (milliunit): Pitocin Increased to (milliunits) @ (Annotations: 12) (Negra Marhefka, RN) Datetime: 09/05/2016 17:24 NBP Sys/Li/Mean (mmHg): 125 (QS system process) : 66 (QS system process) : 86 (QS system process) Pulse: 127 (QS system process) LaborFlag: Labor (QS system process) Datetime: 09/05/2016 17:15 Monitor Mode: External; Palpation (Negra Goodman, RN) Frequency (min): 1-4 (Negra Goodman, RN) Quality: Moderate to Strong (Negra Goodman, RN) Duration (sec): 50-110 (Negra Goodman, RN) Resting Tone (Palpate): Relaxed (Negra Goodman, RN) Monitor Mode: External US (Negra Goodman, RN) FHR Baseline Rate : 170 (Negra Goodman, RN) FHR Baseline Changes: No Baseline Change (Negra Goodman, RN) Variability: Moderate 6-25 bpm (Negra Aritaka, RN) Accelerations: None (Negra Aritaka, RN) Decelerations: Late (Negra Goodman, RN) Pitocin (milliunit): Pitocin Remains (milliunits) @ (Annotations: 10) (Negra Goodman, RN) Datetime: 09/05/2016 17:10 NBP Sys/Li/Mean (mmHg): 126 (QS system process) : 72 (QS system process) : 90 (QS system process) Pulse: 139 (QS system process) LaborFlag: Labor (QS system process) Datetime: 09/05/2016 17:00 Monitor Mode: External (Negra Goodman, RN) Frequency (min): 2-3 (Negra Goodman, RN) Quality: Moderate to Strong (Negra Goodman, RN) Duration (sec): 50-90 (Negra Goodman, RN) Resting Tone (Palpate): Relaxed (Negra Goodman, RN) Monitor Mode: External US (Negra Goodman, RN) FHR Baseline Rate : 155 (Negra Goodman, RN) FHR Baseline Changes: No Baseline Change (Negra Goodman, RN) Variability: Moderate 6-25 bpm (Negra Goodman, RN) Accelerations: 15X15 (Negra Goodman, RN) Decelerations: None (Negra Goodman, RN) Pitocin (milliunit): Pitocin Increased to (milliunits) @ (Annotations: 10) (Negra Goodman RN) Datetime: 09/05/2016 16:58 Patient Position/Activity: High Fowlers (Negra Goodman RN) Patient Care Comments: chair position (Negra Goodman RN) Datetime: 09/05/2016 16:56 Dilatation (cm): 9.5 (Negra Goodman RN) Effacement (%): 100 (Negra Goodman RN) Station: 0 (Negra Goodman RN) Exam by: Dr. Lopez (Negra Goodman RN) Vaginal Bleeding: Normal Show (Negra Goodman RN) Cervix, Consistency: Soft (Negra Goodman RN) Cervix, Position: Midposition (Negra Goodman RN) Datetime: 09/05/2016 16:54 NBP Sys/Li/Mean (mmHg): 122 (QS system process) : 62 (QS system process) : 84 (QS system process) Pulse: 134 (QS system process) LaborFlag: Labor (QS system process) Datetime: 09/05/2016 16:45 Monitor Mode: External (Negra Goodman, RN) Frequency (min): 1-5 (Negra Rex, RN) Quality: Moderate to Strong (Negra Marsusanfka, RN) Duration (sec): 50-110 (Negra Duranfka, RN) Resting Tone (Palpate): Relaxed (Negra Duranfka, RN) Monitor Mode: External US (Negra Goodman, RN) FHR Baseline Rate : 165 (Negra Duranfka, RN) FHR Baseline Changes: No Baseline Change (Negra Marhefka, RN) Variability: Moderate 6-25 bpm (Negra Marhefka, RN) Accelerations: 15X15 (Negra Marhefka, RN) Decelerations: None (Negra Duranfka, RN) Pitocin (milliunit): Pitocin Increased to (milliunits) @ (Annotations: 8) (Negra Marhefka, RN) Datetime: 09/05/2016 16:39 NBP Sys/Li/Mean (mmHg): 117 (QS system process) : 56 (QS system process) : 80 (QS system process) Pulse: 118 (QS system process) Respirations: 17 (Negra Goodman, RN) LaborFlag: Labor (QS system process) Datetime: 09/05/2016 16:30 Monitor Mode: External (Negra Goodman, RN) Frequency (min): 1-4 (Negra Goodman, RN) Quality: Moderate to Strong (Negra Goodman, RN) Duration (sec): 40-80 (Negra Lylaka, RN) Resting Tone (Palpate): Relaxed (Negra Aritaka, RN) Monitor Mode: External US (Negra Goodman, RN) FHR Baseline Rate : 165 (Negra Goodman, RN) FHR Baseline Changes: No Baseline Change (Negra Aritaka, RN) Variability: Moderate 6-25 bpm (Negra Marhefka, RN) Accelerations: 15X15 (Negra Marhefka, RN) Decelerations: Variable (Negra Goodman, RN) Pitocin (milliunit): Pitocin Increased to (milliunits) @ (Annotations: 6) (Negra Aritaka, RN) Datetime: 09/05/2016 16:25 NBP Sys/Li/Mean (mmHg): 119 (QS system process) : 57 (QS system process) : 80 (QS system process) Pulse: 109 (QS system process) LaborFlag: Labor (QS system process) Datetime: 09/05/2016 16:15 Monitor Mode: External (Negra Goodman, RN) Frequency (min): 2-3 (Negra Goodman, RN) Quality: Moderate to Strong (Negra Aritaka, RN) Duration (sec): 60-100 (Negra Goodman, RN) Resting Tone (Palpate): Relaxed (Negra Goodman RN) Monitor Mode: External US (Negra Goodman, RN) FHR Baseline Rate : 165 (Negra Lylaka, RN) FHR Baseline Changes: No Baseline Change (Negra Goodman, RN) Variability: Moderate 6-25 bpm (Negra Goodman, RN) Accelerations: 15X15 (Negra Goodman, RN) Decelerations: None (Negra Goodman, RN) Pitocin (milliunit): Pitocin Increased to (milliunits) @ (Annotations: 4) (Negra Goodman, RN) Datetime: 09/05/2016 16:10 NBP Sys/Li/Mean (mmHg): 127 (QS system process) : 59 (QS system process) : 83 (QS system process) Pulse: 121 (QS system process) LaborFlag: Labor (QS system process) Datetime: 09/05/2016 16:00 Monitor Mode: External (Negra Goodman RN) Frequency (min): 1-4 (Negra Goodman RN) Quality: Moderate to Strong (Negra Goodman RN) Duration (sec): 60-80 (Negra Goodman RN) Resting Tone (Palpate): Relaxed (Negra Goodman RN) Monitor Mode: External US (Negra Goodman RN) FHR Baseline Rate : 145 (Negra Goodman RN) FHR Baseline Changes: No Baseline Change (Negra Goodman RN) Variability: Moderate 6-25 bpm (Negra Goodman RN) Accelerations: 15X15 (Negra Goodman RN) Decelerations: None (Negra Goodman RN) Pitocin (milliunit): Pitocin Started (milliunits) @ (Annotations: [address] Lopez's order ) (Negra Goodman RN)
[2016-09-05] MEDS ORDERED: LIDOCAINE 1% INJ-PF (10 MG/ML) 30 ML SDV ONE (18:15)
[2016-09-05] MEDS ORDERED: MISOPROSTOL 0.2 MG TABLET ONE ×2 (18:15→21:44)
--- NOTE | 2016-09-05 20:00 | L&D Flow Sheet ---
LD Flowsheet Datetime Report Generated by CPN: 09/05/2016 20:00 Datetime: 09/05/2016 19:57 NBP Sys/Li/Mean (mmHg): 113 (QS system process) : 57 (QS system process) : 82 (QS system process) Pulse: 157 (QS system process) LaborFlag: Labor (QS system process) Datetime: 09/05/2016 19:40 NBP Sys/Li/Mean (mmHg): 129 (QS system process) : 63 (QS system process) : 85 (QS system process) Pulse: 130 (QS system process) LaborFlag: Labor (QS system process) Datetime: 09/05/2016 19:25 NBP Sys/Li/Mean (mmHg): 113 (QS system process) : 58 (QS system process) : 82 (QS system process) Pulse: 134 (QS system process) Communication Comments: Report given to Nimesh Alejo RN. Care relinquished at this time. (Negra Goodman RN) LaborFlag: Labor (QS system process) Datetime: 09/05/2016 19:16 Communication Comments: Dr. Lopez @ bedside. Pt to sit in high fowlers for 30 minutes. (Negra Goodman RN) Datetime: 09/05/2016 19:15 Monitor Mode: External (Negra Marhefka, RN) Frequency (min): 1-3 (Negra Marhefka, RN) Quality: Moderate to Strong (Negra Marhefka, RN) Duration (sec): 70-90 (Negra Marhefka, RN) Resting Tone (Palpate): Relaxed (Negra Marhefka, RN) Monitor Mode: External US (Chandrika Cal, RN) FHR Baseline Rate : 170 (Chandrika Cal, RN) Variability: Moderate 6-25 bpm (Chandrika Cal, RN) Accelerations: 15X15 (Chandrika Cal, RN) Decelerations: Late (Chandrika Cal, RN) Pitocin (milliunit): Pitocin Remains (milliunits) @ (Annotations: 12) (Negra Marhefka, RN) Datetime: 09/05/2016 19:10 NBP Sys/Li/Mean (mmHg): 137 (QS system process) : 87 (QS system process) : 105 (QS system process) Pulse: 146 (QS system process) LaborFlag: Labor (QS system process) Datetime: 09/05/2016 19:03 Anesthesia Comments: Epidural turned off (Negra Marhefka, RN) Datetime: 09/05/2016 19:00 Monitor Mode: External (Negra Marhefka, RN) Frequency (min): 2-3 (Negra Marhefka, RN) Quality: Moderate to Strong (Negra Marhefka, RN) Duration (sec): 60-140 (Negra Marhefka, RN) Resting Tone (Palpate): Relaxed (Negra Marhefka, RN) Monitor Mode: External US (Chandrika Cal, RN) FHR Baseline Rate : 165 (Chandrika Cal, RN) Variability: Moderate 6-25 bpm (Chandrika Cal, RN) Accelerations: 15X15 (Chandrika Cal, RN) Decelerations: None (Chandrika Cal, RN) Pitocin (milliunit): Pitocin Remains (milliunits) @ (Annotations: 12) (Negra Marhefka, RN) Datetime: 09/05/2016 18:55 NBP Sys/Li/Mean (mmHg): 107 (QS system process) : 64 (QS system process) : 78 (QS system process) Pulse: 169 (QS system process) LaborFlag: Labor (QS system process) Datetime: 09/05/2016 18:45 Monitor Mode: External (Negra Marhefka, RN) Frequency (min): 2 (Negra Marhefka, RN) Quality: Moderate to Strong (Negra Marhefka, RN) Duration (sec): 60-110 (Negra Marhefka, RN) Resting Tone (Palpate): Relaxed (Negra Marhefka, RN) Monitor Mode: External US (Chandrika Cal, RN) FHR Baseline Rate : 165 (Chandrika Cal, RN) Variability: Moderate 6-25 bpm (Chandrika Cal, RN) Accelerations: 15X15 (Chandrika Cal, RN) Decelerations: Late (Chandrika Cal, RN) Pitocin (milliunit): Pitocin Remains (milliunits) @ (Annotations: 12) (Negra Marhefka, RN) Datetime: 09/05/2016 18:39 NBP Sys/Li/Mean (mmHg): 127 (QS system process) : 64 (QS system process) : 85 (QS system process) Pulse: 166 (QS system process) LaborFlag: Labor (QS system process) Datetime: 09/05/2016 18:30 Monitor Mode: External (Negra Goodman, RN) Frequency (min): 1-2 (Negra Goodman, RN) Quality: Moderate to Strong (Negra Goodman, RN) Duration (sec): 70-90 (Negra Goodman, RN) Resting Tone (Palpate): Relaxed (Negra Goodman, RN) Monitor Mode: External US (Chandrika Mccall, RN) FHR Baseline Rate : 165 (Chandrika Cal, RN) Variability: Moderate 6-25 bpm (Chandrika Cal, RN) Accelerations: 15X15 (Chandrika Cal, RN) Decelerations: Late (Chandrika Cal, RN) Pitocin (milliunit): Pitocin Remains (milliunits) @ (Annotations: 12) (Negra Goodman, RN) Datetime: 09/05/2016 18:27 Dilatation (cm): 10.0 (Negra Goodman RN) Effacement (%): 100 (Negra Goodman, RN) Station: 0 (Negra Goodman, RN) Exam by: Dr. Lopez (Negra Goodman, RN) Datetime: 09/05/2016 18:15 Monitor Mode: External; Palpation (Negra Goodman, EDUARDO) Frequency (min): 2 (Negra Goodman, RN) Quality: Moderate to Strong (Negra Goodman RN) Duration (sec): 80-100 (Negra Goodman RN) Resting Tone (Palpate): Relaxed (Negra Goodman, RN) Monitor Mode: External US (Chandrika Mccall, RN) FHR Baseline Rate : 160 (Chandrika Cal, RN) Variability: Moderate 6-25 bpm (Chandrika Cal, RN) Accelerations: 15X15 (Chandrika Cal, RN) Decelerations: Late (Chandrika Cal, RN) Pitocin (milliunit): Pitocin Remains (milliunits) @ (Annotations: 12) (Negra Goodman RN) Datetime: 09/05/2016 18:09 NBP Sys/Li/Mean (mmHg): 128 (QS system process) : 71 (QS system process) : 89 (QS system process) Pulse: 127 (QS system process) LaborFlag: Labor (QS system process) Datetime: 09/05/2016 18:00 Monitor Mode: External (Negra Goodman, RN) Frequency (min): 2-3 (Negra Goodman, RN) Quality: Moderate to Strong (Negra Lylaka, RN) Duration (sec): 70-120 (Negra Duranfka, RN) Resting Tone (Palpate): Relaxed (Negra Rex, RN) Monitor Mode: External US (Negra Goodman, RN) FHR Baseline Rate : 155 (Negra Lylaka, RN) FHR Baseline Changes: No Baseline Change (Negra Lylaka, RN) Variability: Moderate 6-25 bpm (Negra Marhefka, RN) Accelerations: 15X15 (Negra Johefka, RN) Decelerations: Late (Negra Rex, RN) Pitocin (milliunit): Pitocin Remains (milliunits) @ (Annotations: 12) (Negra Goodman RN)
[2016-09-05] MEDS ORDERED: CEFAZOLIN 2 GM/D5W RTU 2 GM/50 ML RTUPB IV ONE (21:44)
[2016-09-05] MEDS ORDERED: CITRIC ACID/SODIUM CITRATE ORAL SOLN 15 ML UDCUP ONE (21:44)
[2016-09-05] MEDS ORDERED: LIDOCAINE 2% INJ-PF (20 MG/ML) 10 ML AMPUL ONE (21:51)
[2016-09-05] MEDS ORDERED: CEFAZOLIN INJ 1 GM VIAL ONE (21:59)
--- NOTE | 2016-09-05 22:00 | L&D Flow Sheet ---
LD Flowsheet Datetime Report Generated by CPN: 09/05/2016 22:00 Datetime: 09/05/2016 21:55 NBP Sys/Li/Mean (mmHg): 128 (QS system process) : 64 (QS system process) : 87 (QS system process) Pulse: 120 (QS system process) Medication Comments: bicitra 15 mL PO (Giuliana Melo, RN) LaborFlag: Labor (QS system process) Datetime: 09/05/2016 21:52 Patient Care Comments: LR bolusing (Giuliana Melo, RN) Datetime: 09/05/2016 21:45 Medication Comments: pitocin d/shannon (Giuliana Melo, RN) Communication: Provider at Bedside (Giuliana Melo, RN) Communication Comments: Dr Dukeman at bedside (Giuliana Melo, RN) Datetime: 09/05/2016 21:40 NBP Sys/Li/Mean (mmHg): 129 (QS system process) : 63 (QS system process) : 88 (QS system process) Pulse: 116 (QS system process) LaborFlag: Labor (QS system process) Datetime: 09/05/2016 21:32 Stage 2 Comments: pushing tug of war (Giuliana Melo, RN) Datetime: 09/05/2016 21:25 NBP Sys/Li/Mean (mmHg): 132 (QS system process) : 59 (QS system process) : 85 (QS system process) Pulse: 126 (QS system process) LaborFlag: Labor (QS system process) Datetime: 09/05/2016 21:13 Pushing Position: Pushing Squatting (Giuliana Melo, RN) Datetime: 09/05/2016 21:09 NBP Sys/Li/Mean (mmHg): 128 (QS system process) : 57 (QS system process) : 84 (QS system process) Pulse: 108 (QS system process) LaborFlag: Labor (QS system process) Datetime: 09/05/2016 21:02 NBP Sys/Li/Mean (mmHg): 130 (QS system process) : 60 (QS system process) : 86 (QS system process) Pulse: 113 (QS system process) LaborFlag: Labor (QS system process) Datetime: 09/05/2016 20:40 NBP Sys/Li/Mean (mmHg): 142 (QS system process) : 87 (QS system process) : 106 (QS system process) Pulse: 118 (QS system process) LaborFlag: Labor (QS system process) Datetime: 09/05/2016 20:25 NBP Sys/Li/Mean (mmHg): 138 (QS system process) : 58 (QS system process) : 83 (QS system process) Pulse: 136 (QS system process) LaborFlag: Labor (QS system process) Datetime: 09/05/2016 20:20 Communication Comments: Dr Lopez at bedside per pt request (Giuliana Boogiesel, RN) Datetime: 09/05/2016 20:10 NBP Sys/Li/Mean (mmHg): 129 (QS system process) : 65 (QS system process) : 88 (QS system process) Pulse: 139 (QS system process) LaborFlag: Labor (QS system process)
[2016-09-05] MEDS ORDERED: OXYTOCIN 10 UNIT/ML VIAL ONE (22:03)
[2016-09-05] MEDS ORDERED: MIDAZOLAM 2 MG/2 ML INJ ONE (22:03)
[2016-09-05] MEDS ORDERED: FENTANYL CITRATE INJ/PF 100 MCG/2 ML AMPUL ONE ×2 (22:03→23:12)
[2016-09-05] MEDS ORDERED: KETAMINE HCL INJ 500 MG/10 ML VIAL ONE (22:04)
[2016-09-05] MEDS ORDERED: PROPOFOL INJ 200 MG/20 ML VIAL IV ONE (22:04)
[2016-09-05] MEDS ORDERED: ONDANSETRON HCL INJ/PF 4 MG/2 ML SDV IV PRN (23:01)
[2016-09-05] MEDS ORDERED: MEPERIDINE HCL/PF INJ 25 MG/1 ML DISP.SYRIN IV PRN (23:01)
[2016-09-05] MEDS ORDERED: FENTANYL CITRATE INJ/PF 100 MCG/2 ML AMPUL IV PRN ×3 (23:01)
[2016-09-05] MEDS ORDERED: DIPHENHYDRAMINE HCL 50 MG/ML VIAL IV PRN (23:01)
[2016-09-05] MEDS ORDERED: MORPHINE SULFATE 10 MG/ML INJ IV PRN (23:01)
[2016-09-05] MEDS ORDERED: PROMETHAZINE HCL INJ 25 MG/1 ML VIAL IV PRN ×3 (23:01→23:39)
[2016-09-05] MEDS ORDERED: ACETAMINOPHEN 100 ML IV ONE (23:30)
[2016-09-05] MEDS ORDERED: ACETAMINOPHEN 100 ML IV PRN (23:39)
[2016-09-05] MEDS ORDERED: MEASLES,MUMPS&RUBELLA VACC/PF 0.5 ML VIAL SUBCUT PRN (23:39)
[2016-09-05] MEDS ORDERED: SIMETHICONE 80 MG TAB.CHEW PO PRN (23:39)
[2016-09-05] MEDS ORDERED: DIPH/PERTUSS(ACELL)/TETANUS VAC/PF 0.5 ML SYR (>=10YO) IM PRN (23:39)
[2016-09-05] MEDS ORDERED: ACETAMINOPHEN 325 MG TABLET PO PRN (23:39)
[2016-09-05] MEDS ORDERED: HYDROMORPHONE HCL INJ/PF 2 MG/ML AMPULE IV PRN (23:39)
[2016-09-06] MEDS: KETOROLAC TROMETHAMINE INJ/PF 30 MG/1 ML SDV IV SCH ×4 (00:55→23:20)
[2016-09-06] MEDS ORDERED: CLINDAMYCIN 900 MG/D5W RTU 50 ML IV ONE (02:00)
[2016-09-06] MEDS ORDERED: HYDROMORPHONE HCL INJ/PF 2 MG/ML AMPULE ONE (02:13)
[2016-09-06] MEDS ORDERED: FENTANYL CITRATE INJ/PF 100 MCG/2 ML AMPUL ONE (02:31)
[2016-09-06] MEDS: GENTAMICIN SULFATE 120 MG in DEXTROSE 5%-WATER 100 ML IV SCH ×3 (02:49→19:58)
[2016-09-06] MEDS ORDERED: AMPICILLIN SOD INJ 2 GM VIAL IV SCH (03:30)
[2016-09-06] MEDS: CLINDAMYCIN 900 MG/D5W RTU 50 ML IV SCH ×3 (04:10→17:36)
--- NOTE | 2016-09-06 04:45 | L&D General Admission ---
General Admit Datetime Report Generated by CPN: 09/06/2016 04:45 INFORMATION Para: 1 (08/29/2016 17:21:Chandrika Cal, RN) Baby, Number in Womb: 1 (08/29/2016 17:21:Chandrika Cal, RN) CARE Height (in): 63 (09/06/2016 02:44:QS system process) Height (in): 63 (09/05/2016 23:41:QS system process) Height (in): 63 (09/05/2016 04:29:QS system process) LABS Hemoglobin: 10.4 L (09/05/2016 03:41:QS system process) Hematocrit: 31.0 L (09/05/2016 03:41:QS system process) MCV: 81 (09/05/2016 03:41:QS system process)
--- NOTE | 2016-09-06 04:45 | L&D Flow Sheet ---
LD Flowsheet Datetime Report Generated by CPN: 09/06/2016 04:45 Datetime: 09/06/2016 02:36 Pulse: 73 (QS system process) SpO2 (%): 97 (QS system process) Datetime: 09/06/2016 02:33 Pain Scale: 3 (Giuliana Alejo, RN) Pain Presence: Constant (Giuliana Alejo, RN) Pain Type: Cramping; Sharp (Giuliana Alejo RN) Pain Location: Abdomen (Giuliana Melo, RN) Pain Goal: 1 (Giuliana Melo, RN) Pain Relief Measures: Pain Medication Given (Giuliana Melo, RN) Datetime: 09/06/2016 02:31 NBP Sys/Li/Mean (mmHg): 134 (QS system process) : 75 (QS system process) : 99 (QS system process) Pulse: 76 (QS system process) Pulse: 75 (QS system process) Respirations: 16 (Giuliana Melo, RN) SpO2 (%): 96 (QS system process) Temperature (F): 98.4 (Giuliana Melo, RN) Temperature (C): 36.9 (QS system process) Datetime: 09/06/2016 02:26 Pulse: 88 (QS system process) SpO2 (%): 98 (QS system process) Datetime: 09/06/2016 02:21 Pulse: 79 (QS system process) SpO2 (%): 98 (QS system process) Datetime: 09/06/2016 02:16 NBP Sys/Li/Mean (mmHg): 127 (QS system process) : 67 (QS system process) : 88 (QS system process) Pulse: 79 (QS system process) Pulse: 76 (QS system process) SpO2 (%): 100 (QS system process) Datetime: 09/06/2016 02:11 Pulse: 75 (QS system process) SpO2 (%): 100 (QS system process) Datetime: 09/06/2016 02:06 Pulse: 73 (QS system process) SpO2 (%): 99 (QS system process) Datetime: 09/06/2016 02:01 NBP Sys/Li/Mean (mmHg): 123 (QS system process) : 70 (QS system process) : 92 (QS system process) Pulse: 71 (QS system process) Pulse: 72 (QS system process) SpO2 (%): 99 (QS system process) Datetime: 09/06/2016 00:06 NBP Sys/Li/Mean (mmHg): 106 (QS system process) : 59 (QS system process) : 77 (QS system process) Pulse: 85 (QS system process) Datetime: 09/06/2016 00:01 NBP Sys/Li/Mean (mmHg): 103 (QS system process) : 57 (QS system process) : 76 (QS system process) Pulse: 88 (QS system process) Datetime: 09/06/2016 00:00 Pain Assessment Comments: Pt sleeping (Giuliana Melo, RN) Datetime: 09/05/2016 23:56 NBP Sys/Li/Mean (mmHg): 108 (QS system process) : 53 (QS system process) : 76 (QS system process) Pulse: 87 (QS system process) Datetime: 09/05/2016 23:55 Pulse: 83 (QS system process) SpO2 (%): 98 (QS system process) Datetime: 09/05/2016 23:51 NBP Sys/Li/Mean (mmHg): 108 (QS system process) : 54 (QS system process) : 76 (QS system process) Pulse: 74 (QS system process) Datetime: 09/05/2016 23:50 Pulse: 88 (QS system process) SpO2 (%): 99 (QS system process) Datetime: 09/05/2016 23:49 Pulse: 70 (QS system process) SpO2 (%): 86 (QS system process) Datetime: 09/05/2016 23:46 NBP Sys/Li/Mean (mmHg): 108 (QS system process) : 56 (QS system process) : 76 (QS system process) Pulse: 74 (QS system process) Datetime: 09/05/2016 23:45 Pulse: 82 (QS system process) SpO2 (%): 100 (QS system process) Pain Scale: 2 (Giuliana Alejo RN) Pain Presence: Constant (Giulianaskyler Alejo RN) Pain Type: Cramping; Sharp (Giuliana Alejo RN) Pain Location: Abdomen (Giuliana Alejo, RN) Pain Goal: 1 (Giuliana Alejo RN) Pain Assessment Comments: Pt states pain is "tolerable," worse on left side (Giulianaskyler Alejo RN) Datetime: 09/05/2016 23:41 NBP Sys/Li/Mean (mmHg): 116 (QS system process) : 56 (QS system process) : 81 (QS system process) Pulse: 91 (QS system process) Datetime: 09/05/2016 23:40 Pulse: 86 (QS system process) SpO2 (%): 100 (QS system process) Datetime: 09/05/2016 23:38 Pulse: 95 (QS system process) SpO2 (%): 91 (QS system process) Datetime: 09/05/2016 23:35 Pulse: 85 (QS system process) SpO2 (%): 100 (QS system process) Datetime: 09/05/2016 23:33 Pulse: 77 (QS system process) SpO2 (%): 93 (QS system process) Datetime: 09/05/2016 23:31 NBP Sys/Li/Mean (mmHg): 137 (QS system process) : 57 (QS system process) : 82 (QS system process) Pulse: 85 (QS system process) Respirations: 15 (Giuliana Melo, RN) Temperature (F): 97.8 (Giuliana Melo, RN) Temperature (C): 36.6 (QS system process) Datetime: 09/05/2016 23:30 Stage of : Recovery (Giuliana Melo, RN) Pulse: 93 (QS system process) SpO2 (%): 99 (QS system process) Datetime: 09/05/2016 22:38 Procedure Type: primary c/s (Giuliana Melo, RN) Procedure Verify: Correct Patient Identity; Correct Side and Site are Marked; Accurate Procedure Consent Form; Agreement on Procedure to be Done; Correct Patient Position; Relevant Images and Results are Properly Labeled and Displayed; Addressed Need to Administer Antibiotics or Fluids for Irrigation; Safety Precautions Based on Patient History or Medication Use (Giuliana Alejo RN) Datetime: 09/05/2016 22:22 Communication Comments: out of room to OR (Bel Luu RN) Datetime: 09/05/2016 22:21 NBP Sys/Li/Mean (mmHg): 124 (QS system process) : 60 (QS system process) : 85 (QS system process) Pulse: 103 (QS system process) LaborFlag: Labor (QS system process) Datetime: 09/05/2016 22:19 NBP Sys/Li/Mean (mmHg): 131 (QS system process) : 71 (QS system process) : 92 (QS system process) Pulse: 106 (QS system process) LaborFlag: Labor (QS system process) Datetime: 09/05/2016 22:16 Monitor Mode: External (Giuliana Melo, RN) Frequency (min): 2-3 (Giuliana Melo, RN) Quality: Moderate to Strong (Giuliana Melo, RN) Duration (sec): 50-70 (Giuliana Melo, RN) Resting Tone (Palpate): Relaxed (Giuliana Melo, RN) Monitor Mode: External US (Giuliana Melo, RN) FHR Baseline Rate : 160 (Giuliana Melo, RN) Variability: Moderate 6-25 bpm (Giuliana Melo, RN) Accelerations: 10X10 (Giuliana Melo, RN) Decelerations: Late (Giuliana Melo, RN) Actions for Decelerations: Provider Reviewed Strip (Giuliana Melo, RN) Comments: monitors discontinued (Giuliana Melo, RN) Datetime: 09/05/2016 22:15 Temperature (F): 98.0 (Giuliana Melo, RN) Temperature (C): 36.7 (QS system process) Medication Comments: ancef 3 gm IVPB (Giuliana Melo, RN) LaborFlag: Labor (QS system process) Datetime: 09/05/2016 22:13 Anesthesia Comments: Farhana Daija [employer]PERATOR at bedside bolusing epidural (Giuliana Melo, RN) Datetime: 09/05/2016 22:12 Patient Care Comments: bell inserted (Bel Jus, RN) Datetime: 09/05/2016 22:10 NBP Sys/Li/Mean (mmHg): 137 (QS system process) : 64 (QS system process) : 89 (QS system process) Pulse: 122 (QS system process) LaborFlag: Labor (QS system process) Datetime: 09/05/2016 22:08 Patient Care Comments: TEDs and SCDs applied (Giuliana Melo, RN) Datetime: 09/05/2016 22:06 Patient Care Comments: kojo wipes to abd (Giuliana Melo, RN) Datetime: 09/05/2016 22:03 Patient Care Comments: pt shaved (Giuliana Melo, RN) Datetime: 09/05/2016 22:01 Patient Care Comments: c/s consents signed (Giuliana Melo, RN) Datetime: 09/05/2016 22:00 Monitor Mode: External (Giuliana Alejo, RN) Monitor Mode: External; Palpation (Priscilla Monet RN) Frequency (min): 1.5-3 (Giuliana Alejo RN) Quality: Moderate to Strong (Giuliana Alejo RN) Duration (sec): 50-80 (Giuliana Alejo RN) Resting Tone (Palpate): Relaxed (Priscilla Monet RN) Contraction Comments: contractions not tracing well monitors adjusted (Priscilla Monet RN) Monitor Mode: External US (Priscilla Monet RN) FHR Baseline Rate : 165 (Priscilla Monet RN) Variability: Minimal - Undetectable to <=5 bpm (Priscilla Monet RN) Accelerations: 15X15 (Giuliana Alejo RN) Decelerations: Late (Priscilla Monet RN) Actions for Decelerations: Provider Reviewed Strip (Priscilla Monet RN) Datetime: 09/05/2016 21:55 NBP Sys/Li/Mean (mmHg): 128 (QS system process) : 64 (QS system process) : 87 (QS system process) Pulse: 120 (QS system process) Medication Comments: bicitra 15 mL PO (Giuliana Alejo RN) LaborFlag: Labor (QS system process) Datetime: 09/05/2016 21:52 Patient Care Comments: LR bolusing (Giuliana Alejo RN) Datetime: 09/05/2016 21:45 Monitor Mode: External; Palpation (Priscilla Monet RN) Frequency (min): 1.5-3 (Priscilla Monet, EDUARDO) Quality: Moderate (Priscilla Monet RN) Duration (sec): 40-60 (Priscilla Monet RN) Resting Tone (Palpate): Relaxed (Priscilla Monet, RN) Monitor Mode: External US (Priscilla Monet, RN) FHR Baseline Rate : 150 (Priscilla Monet, RN) Variability: Minimal - Undetectable to <=5 bpm (Priscilla Monet, RN) Decelerations: Late (Priscilla Monet, RN) Actions for Decelerations: Provider Reviewed Strip (Priscilla Monet RN) Medication Comments: pitocin d/shannon (Giuliana Alejo, EDUARDO) Teaching Comments: Dr Lopez at bedside discussing option for additional 60-90 minutes of pushing, or primary c/s. Risks and benefits of both options discussed. Pt wishes for primary c/s, states "let's just do the c/s" (Giuliana Alejo, EDUARDO) Pushing: Coached on Pushing (Giuliana Alejo RN) Pushing Position: Pushing with Contractions (Giuliana Alejo, EDUARDO) Pushing Progress: Ineffective Pushing (Giuliana Alejo, EDUARDO) Stage 2 Comments: Mostly ineffective pushing with intermittent effective pushing efforts (Giuliana Melo, RN) Communication: Provider at Bedside (Giuliana Melo, RN) Communication Comments: Dr Lopez at bedside (Giuliana Melo, RN) Datetime: 09/05/2016 21:40 NBP Sys/Li/Mean (mmHg): 129 (QS system process) : 63 (QS system process) : 88 (QS system process) Pulse: 116 (QS system process) LaborFlag: Labor (QS system process) Datetime: 09/05/2016 21:32 Stage 2 Comments: pushing tug of war (Giuliana Melo, RN) Datetime: 09/05/2016 21:30 Monitor Mode: External; Palpation (Priscilla Monet RN) Frequency (min): 1.5-4 (Priscilla Monet RN) Quality: Moderate to Strong (Priscilla Monet RN) Duration (sec): 40-70 (Priscilla Monet RN) Resting Tone (Palpate): Relaxed (Priscilla Monet RN) Monitor Mode: External US (Priscilla Monet RN) FHR Baseline Rate : 165 (Priscilla Monet RN) Variability: Minimal - Undetectable to <=5 bpm (Priscilla Monet RN) Decelerations: Late (Priscilla Monet RN) Actions for Decelerations: Provider Reviewed Strip (Priscilla Monet RN) Pushing: Coached on Pushing (Giuliana Alejo RN) Pushing Position: Pushing with Contractions (Giuliana Alejo RN) Pushing Progress: Ineffective Pushing (Giuliana Alejo RN) Stage 2 Comments: Mostly ineffective pushing with intermittent effective pushing efforts (Giuliana Alejo RN) Datetime: 09/05/2016 21:25 NBP Sys/Li/Mean (mmHg): 132 (QS system process) : 59 (QS system process) : 85 (QS system process) Pulse: 126 (QS system process) LaborFlag: Labor (QS system process) Datetime: 09/05/2016 21:15 Monitor Mode: External; Palpation (Priscilla Monet RN) Frequency (min): 1.5-4 (Priscilla Monet RN) Quality: Moderate (Priscilla Monet RN) Duration (sec): 50-90 (Priscilla Monet RN) Resting Tone (Palpate): Relaxed (Priscilla Monet RN) Monitor Mode: External US (Prisclila Monet RN) Accelerations: 15X15 (Priscilla Monet RN) Decelerations: Late (Priscilla Monet RN) Actions for Decelerations: Provider Reviewed Strip (Priscilla Monet RN) Comments: min to mod variability (Priscilla Monet RN) Pushing: Coached on Pushing (Giuliana Alejo RN) Pushing Position: Pushing with Contractions (Giuliana Alejo RN) Pushing Progress: Ineffective Pushing (Giuliana Alejo RN) Stage 2 Comments: Mostly ineffective pushing with intermittent effective pushing efforts (Giuliana Alejo RN) Datetime: 09/05/2016 21:13 Pushing Position: Pushing Squatting (Giuliana Melo, RN) Datetime: 09/05/2016 21:09 NBP Sys/Li/Mean (mmHg): 128 (QS system process) : 57 (QS system process) : 84 (QS system process) Pulse: 108 (QS system process) LaborFlag: Labor (QS system process) Datetime: 09/05/2016 21:02 NBP Sys/Li/Mean (mmHg): 130 (QS system process) : 60 (QS system process) : 86 (QS system process) Pulse: 113 (QS system process) LaborFlag: Labor (QS system process) Datetime: 09/05/2016 21:00 Monitor Mode: External; Palpation (Priscilla Monet RN) Frequency (min): 1.5-3 (Priscilla Monet RN) Quality: Moderate (Priscilla Monet RN) Duration (sec): 30-60 (Priscilla Monet RN) Resting Tone (Palpate): Relaxed (Priscilla Monet RN) FHR Baseline Changes: Unable to Determine (Priscilla Monet RN) Actions for Decelerations: Provider Reviewed Strip (Priscilla Monet RN) Comments: unable to determine broken tracing (Priscilla Monet RN) Pushing: Coached on Pushing (Giuliana Alejo RN) Pushing Position: Pushing with Contractions (Giuliana Alejo RN) Pushing Progress: Ineffective Pushing (Giuliana Alejo RN) Stage 2 Comments: Mostly ineffective pushing with intermittent effective pushing efforts (Giuliana Alejo RN) Datetime: 09/05/2016 20:52 Pushing Position: Pushing Lithotomy (Giuliana Alejo, RN) Datetime: 09/05/2016 20:48 Patient Position/Activity: Hands-Knees (Giuliana Alejo RN) Pushing: Refusing to Push (Giuliana Alejo RN) Stage 2 Comments: Pt in hands/ knees, refusing to push in this position (Giuliana Alejo RN) Datetime: 09/05/2016 20:45 Monitor Mode: External; Palpation (Priscilla Monet RN) Frequency (min): 1.5-2 (Priscilla Monet RN) Quality: Moderate (Priscilla Monet RN) Duration (sec): 50-60 (Priscilla Monet RN) Resting Tone (Palpate): Relaxed (Priscilla Monet RN) Monitor Mode: External US (Priscilla Monet RN) FHR Baseline Rate : 155 (Priscilla Monet RN) Variability: Moderate 6-25 bpm (Priscilla Monet, EDUARDO) Accelerations: 15X15 (Priscilla Monet, RN) Decelerations: Late (Priscilla Monet, EDUARDO) Actions for Decelerations: Provider Reviewed Strip (Priscilla Monet RN) Pushing: Coached on Pushing (Giuliana Alejo RN) Pushing Position: Pushing with Contractions (Giuliana Alejo RN) Pushing Progress: Ineffective Pushing (Giuliana Alejo RN) Stage 2 Comments: Mostly ineffective pushing with intermittent effective pushing efforts (Giuliana Alejo RN) Datetime: 09/05/2016 20:40 NBP Sys/Li/Mean (mmHg): 142 (QS system process) : 87 (QS system process) : 106 (QS system process) Pulse: 118 (QS system process) LaborFlag: Labor (QS system process) Datetime: 09/05/2016 20:30 Monitor Mode: External; Palpation (Priscilla Monet RN) Frequency (min): 1.5-3 (Priscilla Monet RN) Quality: Moderate (Priscilla Monet RN) Duration (sec): 50-90 (Priscilla Monet RN) Resting Tone (Palpate): Relaxed (Priscilla Monet RN) Monitor Mode: External US (Priscilla Monet RN) FHR Baseline Rate : 160 (Priscilla Monet RN) Variability: Moderate 6-25 bpm (Priscilla Monet RN) Accelerations: 15X15 (Priscilla Monet RN) Decelerations: Late (Priscilla Monet RN) Actions for Decelerations: Provider Reviewed Strip (Priscilla Monet RN) Pushing Progress: Ineffective Pushing (Giuliana Alejo RN) Stage 2 Comments: Mostly ineffective pushing with intermittent effective pushing efforts (Giuliana Alejo RN) Datetime: 09/05/2016 20:29 Pushing Position: Pushing Lithotomy (Giuliana Alejo RN) Datetime: 09/05/2016 20:25 NBP Sys/Li/Mean (mmHg): 138 (QS system process) : 58 (QS system process) : 83 (QS system process) Pulse: 136 (QS system process) LaborFlag: Labor (QS system process) Datetime: 09/05/2016 20:20 Stage 2 Comments: pushing tug of war (Giuliana Alejo RN) Communication Comments: Dr Lopez at bedside per pt request (Giuliana Alejo RN) Datetime: 09/05/2016 20:15 Monitor Mode: External; Palpation (Priscilla Monet RN) Frequency (min): 2-2.5 (Priscilla Monet RN) Quality: Moderate (Priscilla Monet RN) Duration (sec): 50-90 (Priscilla Monet RN) Resting Tone (Palpate): Relaxed (Priscilla Monet RN) Monitor Mode: External US (Priscilla Monet RN) Variability: Moderate 6-25 bpm (Priscilla Monet RN) Accelerations: 15X15 (Priscilla Monet RN) Decelerations: Late (Priscilla Monet, RN) Actions for Decelerations: Provider Reviewed Strip (Priscilla Monet RN) Pushing: Coached on Pushing (Giuliana Alejo RN) Pushing Position: Pushing with Contractions (Giuliana Alejo RN) Pushing Progress: Ineffective Pushing (Giuliana Alejo RN) Datetime: 09/05/2016 20:10 NBP Sys/Li/Mean (mmHg): 129 (QS system process) : 65 (QS system process) : 88 (QS system process) Pulse: 139 (QS system process) LaborFlag: Labor (QS system process) Datetime: 09/05/2016 20:00 Monitor Mode: External; Palpation (Priscilla Monet RN) Frequency (min): 1.5-2 (Priscilla Monet RN) Quality: Moderate (Priscilla Monet RN) Duration (sec): 50-110 (Priscilla Monet RN) Resting Tone (Palpate): Relaxed (Priscilla Monet RN) Monitor Mode: External US (Priscilla Monet RN) FHR Baseline Rate : 165 (Priscilla Monet RN) FHR Baseline Changes: Tachycardia (Priscilla Monet RN) Variability: Moderate 6-25 bpm (Priscilla Monet RN) Accelerations: 15X15 (Priscilla Monet RN) Decelerations: Late (Priscilla Monet RN) Actions for Decelerations: Provider Reviewed Strip (Priscilla Monet RN) Pushing: Coached on Pushing (Giuliana Alejo RN) Pushing Position: Pushing with Contractions (Giuliana Alejo RN) Pushing Progress: Ineffective Pushing (Giuliana Alejo RN) Communication: Provider at Bedside (Giuliana Alejo RN) Datetime: 09/05/2016 19:57 NBP Sys/Li/Mean (mmHg): 113 (QS system process) : 57 (QS system process) : 82 (QS system process) Pulse: 157 (QS system process) LaborFlag: Labor (QS system process) Datetime: 09/05/2016 19:53 Station: -1 (Giuliana Alejo RN) Exam by: Booker Alejo RN (Giuliana Alejo RN) Pushing: Urge to Push (Giuliana Alejo RN) Stage 2 Comments: RN called to bedside, pt wishing to push (Giuliana Alejo RN) Communication: RN at Bedside (Giuliana Alejo RN) Datetime: 09/05/2016 19:45 Monitor Mode: External; Palpation (Priscilla Monet RN) Frequency (min): 1.5-2 (Priscilla Monet, EDUARDO) Quality: Moderate (Priscilla Monet RN) Duration (sec): 60-90 (Priscilla Monet RN) Resting Tone (Palpate): Relaxed (Priscilla Monet, RN) Monitor Mode: External US (Priscilla Monet, RN) FHR Baseline Rate : 165 (Priscilla Mnoet RN) Variability: Moderate 6-25 bpm (Priscilla Monet, RN) Accelerations: 15X15 (Priscilla Monet, RN) Decelerations: Late (Priscilla Monet, RN) Actions for Decelerations: Provider Reviewed Strip (Priscilla Monet RN) Datetime: 09/05/2016 19:40 NBP Sys/Li/Mean (mmHg): 129 (QS system process) : 63 (QS system process) : 85 (QS system process) Pulse: 130 (QS system process) LaborFlag: Labor (QS system process) Datetime: 09/05/2016 19:30 Monitor Mode: External; Palpation (Priscilla Monet, RN) Frequency (min): 2-3.5 (Priscilla Monet, RN) Quality: Moderate (Priscilla Sandrosmann, RN) Duration (sec): 60-80 (Priscilla Sandrosmann, RN) Resting Tone (Palpate): Relaxed (Priscilla Monet, RN) Monitor Mode: External US (Priscilla Monet, RN) FHR Baseline Rate : 165 (Priscilla Sandrosmann, RN) FHR Baseline Changes: Tachycardia (Priscilla Kossmann, RN) Variability: Minimal - Undetectable to <=5 bpm (Priscilla Kossmann, RN) Accelerations: 15X15 (Priscilla Kossmann, RN) Decelerations: None (Priscilla Kossmann, RN) Datetime: 09/05/2016 19:25 NBP Sys/Li/Mean (mmHg): 113 (QS system process) : 58 (QS system process) : 82 (QS system process) Pulse: 134 (QS system process) Communication Comments: Report given to Nimesh Alejo RN. Care relinquished at this time. (Negra Goodman RN) LaborFlag: Labor (QS system process) Datetime: 09/05/2016 19:16 Communication Comments: Dr. Lopez @ bedside. Pt to sit in high fowlers for 30 minutes. (Negra Goodman RN) Datetime: 09/05/2016 19:15 Monitor Mode: External (Negra Goodman RN) Frequency (min): 1-3 (Negra Goodman RN) Quality: Moderate to Strong (Negra Goodman RN) Duration (sec): 70-90 (Negra Goodman RN) Resting Tone (Palpate): Relaxed (Negra Goodman RN) Monitor Mode: External US (Chandrika Mccall RN) FHR Baseline Rate : 170 (Chandrika Mccall, RN) Variability: Moderate 6-25 bpm (Chandrika Mccall, RN) Accelerations: 15X15 (Chandrika Mccall, RN) Decelerations: Late (Chandrika Cal, RN) Pitocin (milliunit): Pitocin Remains (milliunits) @ (Annotations: 12) (Negra Goodman, RN) Datetime: 09/05/2016 19:10 NBP Sys/Li/Mean (mmHg): 137 (QS system process) : 87 (QS system process) : 105 (QS system process) Pulse: 146 (QS system process) LaborFlag: Labor (QS system process) Datetime: 09/05/2016 19:03 Anesthesia Comments: Epidural turned off (Negra Goodman, RN) Datetime: 09/05/2016 19:00 Monitor Mode: External (Negra Marhefka, RN) Frequency (min): 2-3 (Negra Marhefka, RN) Quality: Moderate to Strong (Negra Marhefka, RN) Duration (sec): 60-140 (Negra Marhefka, RN) Resting Tone (Palpate): Relaxed (Negra Marhefka, RN) Monitor Mode: External US (Chandrika Cal, RN) FHR Baseline Rate : 165 (Chandrika Cal, RN) Variability: Moderate 6-25 bpm (Chandrika Cal, RN) Accelerations: 15X15 (Chandrika Cal, RN) Decelerations: None (Chandrika Cal, RN) Pitocin (milliunit): Pitocin Remains (milliunits) @ (Annotations: 12) (Negra Marhefka, RN) Datetime: 09/05/2016 18:55 NBP Sys/Li/Mean (mmHg): 107 (QS system process) : 64 (QS system process) : 78 (QS system process) Pulse: 169 (QS system process) LaborFlag: Labor (QS system process) Datetime: 09/05/2016 18:45 Monitor Mode: External (Negra Marhefka, RN) Frequency (min): 2 (Negra Marhefka, RN) Quality: Moderate to Strong (Negra Marhefka, RN) Duration (sec): 60-110 (Negra Marhefka, RN) Resting Tone (Palpate): Relaxed (Negra Marhefka, RN) Monitor Mode: External US (Chandrika Cal, RN) FHR Baseline Rate : 165 (Chandrika Cal, RN) Variability: Moderate 6-25 bpm (Chandrika Cal, RN) Accelerations: 15X15 (Chandrika Cal, RN) Decelerations: Late (Chandrika Cal, RN) Pitocin (milliunit): Pitocin Remains (milliunits) @ (Annotations: 12) (Negra Marhefka, RN) Datetime: 09/05/2016 18:39 NBP Sys/Li/Mean (mmHg): 127 (QS system process) : 64 (QS system process) : 85 (QS system process) Pulse: 166 (QS system process) LaborFlag: Labor (QS system process) Datetime: 09/05/2016 18:30 Monitor Mode: External (Negra Marhefka, RN) Frequency (min): 1-2 (Negra Marhefka, RN) Quality: Moderate to Strong (Negra Marhefka, RN) Duration (sec): 70-90 (Negra Marhefka, RN) Resting Tone (Palpate): Relaxed (Negra Marhefka, RN) Monitor Mode: External US (Chandrika Cal, RN) FHR Baseline Rate : 165 (Chandrika Cal, RN) Variability: Moderate 6-25 bpm (Chandrika Cal, RN) Accelerations: 15X15 (Chandrika Cal, RN) Decelerations: Late (Chandrika Cal, RN) Pitocin (milliunit): Pitocin Remains (milliunits) @ (Annotations: 12) (Negra Marhefka, RN) Datetime: 09/05/2016 18:27 Dilatation (cm): 10.0 (Negra Marhefka, RN) Effacement (%): 100 (Negra Marhefka, RN) Station: 0 (Negra Marhefka, RN) Exam by: Dr. Lopez (Negra Marhefka, RN) Datetime: 09/05/2016 18:15 Monitor Mode: External; Palpation (Negra Marhefka, RN) Frequency (min): 2 (Negra Marhefka, RN) Quality: Moderate to Strong (Negra Marhefka, RN) Duration (sec): 80-100 (Negra Marhefka, RN) Resting Tone (Palpate): Relaxed (Negra Marhefka, RN) Monitor Mode: External US (Chandrika Cal, RN) FHR Baseline Rate : 160 (Chandrika Cal, RN) Variability: Moderate 6-25 bpm (Chandrika Cal, RN) Accelerations: 15X15 (Chandrika Cal, RN) Decelerations: Late (Chandrika Cal, RN) Pitocin (milliunit): Pitocin Remains (milliunits) @ (Annotations: 12) (Negra Marhefka, RN) Datetime: 09/05/2016 18:09 NBP Sys/Li/Mean (mmHg): 128 (QS system process) : 71 (QS system process) : 89 (QS system process) Pulse: 127 (QS system process) LaborFlag: Labor (QS system process) Datetime: 09/05/2016 18:00 Monitor Mode: External (Negra Marhefka, RN) Frequency (min): 2-3 (Negra Marhefka, RN) Quality: Moderate to Strong (Negra Marhefka, RN) Duration (sec): 70-120 (Negra Marhefka, RN) Resting Tone (Palpate): Relaxed (Negra Marhefka, RN) Monitor Mode: External US (Negra Marhefka, RN) FHR Baseline Rate : 155 (Negra Marhefka, RN) FHR Baseline Changes: No Baseline Change (Negra Marhefka, RN) Variability: Moderate 6-25 bpm (Negra Marhefka, RN) Accelerations: 15X15 (Negra Marhefka, RN) Decelerations: Late (Negra Marhefka, RN) Pitocin (milliunit): Pitocin Remains (milliunits) @ (Annotations: 12) (Negra Marhefka, RN) Datetime: 09/05/2016 17:56 NBP Sys/Li/Mean (mmHg): 112 (QS system process) : 58 (QS system process) : 79 (QS system process) Pulse: 137 (QS system process) LaborFlag: Labor (QS system process) Datetime: 09/05/2016 17:45 Monitor Mode: External (Negra Marhefka, RN) Frequency (min): 1-3 (Negra Marhefka, RN) Quality: Moderate to Strong (Negra Marhefka, RN) Duration (sec): 60-120 (Negra Marhefka, RN) Resting Tone (Palpate): Relaxed (Negra Marhefka, RN) Monitor Mode: External US (Negra Marhefka, RN) FHR Baseline Rate : 160 (Negra Marhefka, RN) FHR Baseline Changes: No Baseline Change (Negra Marhefka, RN) Variability: Moderate 6-25 bpm (Negra Marhefka, RN) Accelerations: 15X15 (Negra Marhefka, RN) Decelerations: None (Negra Marhefka, RN) Pitocin (milliunit): Pitocin Remains (milliunits) @ (Annotations: 12) (Negra Marhefka, RN) Datetime: 09/05/2016 17:41 NBP Sys/Li/Mean (mmHg): 119 (QS system process) : 58 (QS system process) : 78 (QS system process) Pulse: 121 (QS system process) LaborFlag: Labor (QS system process) Datetime: 09/05/2016 17:34 Antibiotics: Gentamicin IV (mg) @ 200 (Negra Goodman RN) Datetime: 09/05/2016 17:30 Monitor Mode: External (Negra Goodman RN) Frequency (min): 2-3 (Negra Goodman RN) Quality: Moderate to Strong (Negra Goodman RN) Duration (sec): 60-80 (Negra Goodman RN) Resting Tone (Palpate): Relaxed (Negra Goodman RN) Monitor Mode: External US (Negra Goodman RN) FHR Baseline Rate : 165 (Negra Goodman RN) FHR Baseline Changes: No Baseline Change (Negra Goodman RN) Variability: Moderate 6-25 bpm (Negra Goodman, RN) Accelerations: 15X15 (Negra Marsusanfka, RN) Decelerations: Variable (Negra Goodman, RN) Pitocin (milliunit): Pitocin Increased to (milliunits) @ (Annotations: 12) (Negra Garzonfka, RN) Datetime: 09/05/2016 17:24 NBP Sys/Li/Mean (mmHg): 125 (QS system process) : 66 (QS system process) : 86 (QS system process) Pulse: 127 (QS system process) LaborFlag: Labor (QS system process) Datetime: 09/05/2016 17:15 Monitor Mode: External; Palpation (Negra Goodman RN) Frequency (min): 1-4 (Negra Goodman RN) Quality: Moderate to Strong (Negra Goodman RN) Duration (sec): 50-110 (Negra Goodman RN) Resting Tone (Palpate): Relaxed (Negra Goodman RN) Monitor Mode: External US (Negra Marhefka, RN) FHR Baseline Rate : 170 (Negra Marhefka, RN) FHR Baseline Changes: No Baseline Change (Negra Marhefka, RN) Variability: Moderate 6-25 bpm (Negra Marhefka, RN) Accelerations: None (Negra Marhefka, RN) Decelerations: Late (Negra Marhefka, RN) Pitocin (milliunit): Pitocin Remains (milliunits) @ (Annotations: 10) (Negra Marhefka, RN) Datetime: 09/05/2016 17:10 NBP Sys/Li/Mean (mmHg): 126 (QS system process) : 72 (QS system process) : 90 (QS system process) Pulse: 139 (QS system process) LaborFlag: Labor (QS system process) Datetime: 09/05/2016 17:00 Monitor Mode: External (Negra Marhefka, RN) Frequency (min): 2-3 (Negra Marhefka, RN) Quality: Moderate to Strong (Negra Marhefka, RN) Duration (sec): 50-90 (Negra Marhefka, RN) Resting Tone (Palpate): Relaxed (Negra Marsusanfka, RN) Monitor Mode: External US (Negra Goodman, RN) FHR Baseline Rate : 155 (Negra Marhefka, RN) FHR Baseline Changes: No Baseline Change (Negra Marhefka, RN) Variability: Moderate 6-25 bpm (Negra Marhefka, RN) Accelerations: 15X15 (Negra Marhefka, RN) Decelerations: None (Negra Marhefka, RN) Pitocin (milliunit): Pitocin Increased to (milliunits) @ (Annotations: 10) (Negra Marsusanfka, RN) Datetime: 09/05/2016 16:58 Patient Position/Activity: High Fowlers (Negra Marhefka, RN) Patient Care Comments: chair position (Negra Marhefka, RN) Datetime: 09/05/2016 16:56 Dilatation (cm): 9.5 (Negra Marhefka, RN) Effacement (%): 100 (Negra Goodman RN) Station: 0 (Negra Goodman RN) Exam by: Dr. Lopez (Negra Goodman RN) Vaginal Bleeding: Normal Show (Negra Goodman RN) Cervix, Consistency: Soft (Negra Goodman RN) Cervix, Position: Midposition (Negra Goodman RN) Datetime: 09/05/2016 16:54 NBP Sys/Li/Mean (mmHg): 122 (QS system process) : 62 (QS system process) : 84 (QS system process) Pulse: 134 (QS system process) LaborFlag: Labor (QS system process) Datetime: 09/05/2016 16:45 Monitor Mode: External (Negra Goodman RN) Frequency (min): 1-5 (Negra Goodman RN) Quality: Moderate to Strong (Negra Goodman RN) Duration (sec): 50-110 (Negra Goodman RN) Resting Tone (Palpate): Relaxed (Negra Goodman RN) Monitor Mode: External US (Negra Goodman RN) FHR Baseline Rate : 165 (Negra Goodman RN) FHR Baseline Changes: No Baseline Change (Negra Goodman RN) Variability: Moderate 6-25 bpm (Negra Goodman RN) Accelerations: 15X15 (Negra Goodman RN) Decelerations: None (Negra Goodman RN) Pitocin (milliunit): Pitocin Increased to (milliunits) @ (Annotations: 8) (Negra Goodman RN)
--- NOTE | 2016-09-06 04:45 | L&D Current Admission ---
Current Admit Datetime Report Generated by CPN: 09/06/2016 04:45 ADMISSION INFORMATION Current Admit Date/Time: 09/05/2016 03:21 (09/05/2016 03:20:Magalys Parra RN) Reason for Admission: Rupture of Membranes (09/05/2016 03:20:Magalys Parra RN) Chief Complaint: Suspected Rupture of Membranes (09/05/2016 02:59:Magalys Parra RN) Chief Complaint: swelling in hands and feet (08/29/2016 16:23:Chandrika Mccall RN) EGA per Dates: 40.2 (09/05/2016 03:20:QS system process) EGA per US: 92.4 (09/05/2016 03:20:QS system process) Method of Arrival: Wheelchair (09/05/2016 03:20:Magalys Parra RN) Admitted From: Home (09/05/2016 03:20:Magalys Parra RN) Records Available: Yes (09/05/2016 03:20:Magalys Ledgerwood, RN) General Admission Information: Reviewed (09/05/2016 03:20:Magalys Parra RN) BELONGINGS/ADVANCED DIRECTIVES Other Belongings: see belongings consent (09/05/2016 03:20:Magalys Parra RN) Disposition of Belongings: Kept with Patient (09/05/2016 03:20:Magalys Parra RN) Advance Direct for Healthcare: No, and Wants No Information (09/05/2016 03:20:Magalys Parra RN) Durable Power of Maple Sugar Maker: No (09/05/2016 03:20:Magalys Parra RN) Living Will: No (09/05/2016 03:20:Magalys Parra RN) Organ Donor: No (09/05/2016 03:20:Magalys Parra RN) Pt Understands Pt Rights: Yes (09/05/2016 03:20:Magalys Parra RN) LEARNING ASSESSMENT Knowledge Level: Understands L_D Process; Understands Care Activities; Understands Diagnosis (09/05/2016 03:20:Magalys Parra RN) Barriers to Learning: None; Visual Deficit; Hearing Deficit; Sensory Deficit; Cognitive Impairment; Communication Barrier; Emotional State; Pain (09/05/2016 03:20:Magalys Parra RN) Learning Readiness: Motivated (09/05/2016 03:20:Magalys Parra RN) Learns Best By: 1 to 1 Instruction (09/05/2016 03:20:Magalys Parra RN) Learning Needs: Labor and Delivery Process; Pain Management; Symptoms to Report; Treatment Plan; Medication; Diagnosis; Nutrition; Equipment; Care; Community Resources (09/05/2016 03:20:Magalys Parra RN) DOMESTIC VIOLANCE SCREENING Dom Viol Threatened/Hurt: No (09/05/2016 03:20:Magalys Parra RN) Hx of Abuse/Neglect past 2yrs: No (09/05/2016 03:20:Magalys Parra RN) Feel Unsafe Going Home: No (09/05/2016 03:20:Magalys Parra RN) Addt'l Observ Indicating Abuse: No (09/05/2016 03:20:Magalys Parra RN) Reason Unable to Complete Screen: N/A, Screen Completed (09/05/2016 03:20:Magalys Parra RN) Considered Personal Harm/Suicide: No (09/05/2016 03:20:Magalys Parra RN) NUTRITIONAL/FUNCTIONAL SCREENING Problem with Appetite >5 Days: No (09/05/2016 03:20:Magalys Parra RN) Chew/Swallow Difficulties: No (09/05/2016 03:20:Magalys Parra RN) Inappropriate Wt Gain/Loss: No (09/05/2016 03:20:Magalys Parra RN) Presence Skin Breakdown/Ulcer: No (09/05/2016 03:20:Magalys Parra RN) Special Diet: No (09/05/2016 03:20:Magalys Parra RN) Pt Requests Internal Medicine Nurse Practitioner Visit: No (09/05/2016 03:20:Magalys Parra RN) Hx of Any of the Following?: N/A (09/05/2016 03:20:Magalys Parra RN) New Diagnosis of: N/A (09/05/2016 03:20:Magalys Parra RN) Requires Assist w/Ambulation: No (09/05/2016 03:20:Magalys Parra RN) Uses Assist Device to Ambulate: No (09/05/2016 03:20:Magalys Parra RN) Pt Requires Help w/ADL's: No (09/05/2016 03:20:Magalys Parra RN)
--- NOTE | 2016-09-06 04:46 | L&D Admission Assessment ---
LD ADM ASMT Datetime Report Generated by CPN: 09/06/2016 04:45 Assessment Type: Ongoing Assessment (09/05/2016 07:35:Negra Goodman RN) Assessment Type: Admission Assessment (09/05/2016 02:59:Magalys Parra RN) Weight (lb): 231 (09/06/2016 02:44:QS system process) Weight (lb): 231 (09/05/2016 23:41:QS system process) Weight (lb): 231 (09/05/2016 04:29:QS system process) Weight (kg): 105.0 (09/06/2016 02:44:QS system process) Weight (kg): 105.0 (09/05/2016 23:41:QS system process) Weight (kg): 105.0 (09/05/2016 04:29:QS system process) Total Wt Gain (lb): 51 (09/06/2016 02:44:QS system process) Total Wt Gain (lb): 51 (09/05/2016 23:41:QS system process) Total Wt Gain (lb): 51 (09/05/2016 04:29:QS system process) Wt Gain (kg): 23.2 (09/06/2016 02:44:QS system process) Wt Gain (kg): 23.2 (09/05/2016 23:41:QS system process) Wt Gain (kg): 23.2 (09/05/2016 04:29:QS system process) BMI: 40.9 (09/06/2016 02:44:QS system process) BMI: 40.9 (09/05/2016 23:41:QS system process) BMI: 42.2 (09/05/2016 04:29:QS system process) Pain Scale: 3 (09/06/2016 02:33:Giuliana Alejo RN) Pain Scale: 2 (09/05/2016 23:45:Giuliana Alejo RN) Pain Scale: 3 (09/05/2016 07:29:Negra Goodman RN) Pain Scale: 1 (09/05/2016 02:59:Magalys Parra RN) Pain Presence: Constant (09/06/2016 02:33:Giuliana Alejo RN) Pain Presence: Constant (09/05/2016 23:45:Giuliana Alejo RN) Pain Presence: Intermittent (09/05/2016 07:29:Negra Goodman RN) Pain Presence: Intermittent (09/05/2016 02:59:Magalys Parra RN) Pain Type: Cramping; Sharp (09/06/2016 02:33:Giuliana Alejo RN) Pain Type: Cramping; Sharp (09/05/2016 23:45:Giuliana Alejo RN) Pain Type: Contraction (09/05/2016 07:29:Negra Goodman RN) Pain Type: Contraction (09/05/2016 02:59:Magalys Parra RN) Pain Location: Abdomen (09/06/2016 02:33:Giuliana Alejo RN) Pain Location: Abdomen (09/05/2016 23:45:Giuliana Alejo RN) Pain Location: Abdomen; Back (09/05/2016 07:29:Negra Goodman RN) Pain Location: Back (09/05/2016 02:59:Magalys Parra RN) Pain Goal: 1 (09/06/2016 02:33:Giuliana Alejo RN) Pain Goal: 1 (09/05/2016 23:45:Giuliana Alejo RN) Pain Goal: 0 (09/05/2016 07:29:Negra Goodman RN) Pain Comments: Pt sleeping (09/06/2016 00:00:Giuliana Alejo RN) Pain Comments: Pt states pain is "tolerable," worse on left side (09/05/2016 23:45:Giuliana Melo, RN) Frequency (min): 2-3 (09/05/2016 22:16:Giuliana Melo, RN) Frequency (min): 1.5-3 (09/05/2016 22:00:Giuliana Melo, RN) Frequency (min): 1.5-3 (09/05/2016 21:45:Priscilla Chiki, RN) Frequency (min): 1.5-4 (09/05/2016 21:30:Priscilla Sandrosmann, RN) Frequency (min): 1.5-4 (09/05/2016 21:15:Priscilla Rondaann, RN) Frequency (min): 1.5-3 (09/05/2016 21:00:Priscilla Chiki, RN) Frequency (min): 1.5-2 (09/05/2016 20:45:Priscilla Chiki, RN) Frequency (min): 1.5-3 (09/05/2016 20:30:Priscilla Rondaann, RN) Frequency (min): 2-2.5 (09/05/2016 20:15:Priscilla Rondaann, RN) Frequency (min): 1.5-2 (09/05/2016 20:00:Priscilla Sandrosmann, RN) Frequency (min): 1.5-2 (09/05/2016 19:45:Priscilla Rondaann, RN) Frequency (min): 2-3.5 (09/05/2016 19:30:Priscilla Chiki, RN) Frequency (min): 1-3 (09/05/2016 19:15:Negra Rex, RN) Frequency (min): 2-3 (09/05/2016 19:00:Negra Rex, RN) Frequency (min): 2 (09/05/2016 18:45:Negra Rex, RN) Frequency (min): 1-2 (09/05/2016 18:30:Negra Lylaka, RN) Frequency (min): 2 (09/05/2016 18:15:Negra Rex, RN) Frequency (min): 2-3 (09/05/2016 18:00:Negra Marhefka, RN) Frequency (min): 1-3 (09/05/2016 17:45:Negra Marhefka, RN) Frequency (min): 2-3 (09/05/2016 17:30:Negra Marhefka, RN) Frequency (min): 1-4 (09/05/2016 17:15:Negar Marhefka, RN) Frequency (min): 2-3 (09/05/2016 17:00:Negra Marhefka, RN) Frequency (min): 1-5 (09/05/2016 16:45:Negra Marhefka, RN) Frequency (min): 1-4 (09/05/2016 16:30:Negra Marhefka, RN) Frequency (min): 2-3 (09/05/2016 16:15:Negra Marhefka, RN) Frequency (min): 1-4 (09/05/2016 16:00:Negra Marhefka, RN) Frequency (min): 2-4 (09/05/2016 15:45:Negra Marhefka, RN) Frequency (min): 3-4 (09/05/2016 15:30:Negra Marhefka, RN) Frequency (min): 4 (09/05/2016 15:15:Negra Marhefka, RN) Frequency (min): 2-3 (09/05/2016 15:00:Negra Marhefka, RN) Frequency (min): 2-5 (09/05/2016 14:45:Negra Marhefka, RN) Frequency (min): 3-4 (09/05/2016 14:30:Negra Marhefka, RN) Frequency (min): 2-3 (09/05/2016 14:15:Negra Marhefka, RN) Frequency (min): 2-6 (09/05/2016 14:00:Negra Marhefka, RN) Frequency (min): 2-4 (09/05/2016 13:45:Negra Marhefka, RN) Frequency (min): 3-5 (09/05/2016 13:30:Negra Marhefka, RN) Frequency (min): 2-6 (09/05/2016 13:15:Negra Marhefka, RN) Frequency (min): UTD (09/05/2016 13:00:Negra Marhefka, RN) Frequency (min): 3-4 (09/05/2016 12:45:Negra Marhefka, RN) Frequency (min): 2-4 (09/05/2016 12:30:Negra Marhefka, RN) Frequency (min): 2-6 (09/05/2016 12:15:Negra Marhefka, RN) Frequency (min): 2-4 (09/05/2016 12:00:Negra Marhefka, RN) Frequency (min): 3-5 (09/05/2016 11:15:Negra Marhefka, RN) Frequency (min): 2-4 (09/05/2016 11:00:Negra Marhefka, RN) Frequency (min): 2-4 (09/05/2016 10:45:Negra Marhefka, RN) Frequency (min): 2-3 (09/05/2016 10:30:Negra Marhefka, RN) Frequency (min): 2-3 (09/05/2016 10:15:Negra Marhefka, RN) Frequency (min): 2-4 (09/05/2016 10:00:Negra Marhefka, RN) Frequency (min): 1-3 (09/05/2016 09:45:Negra Marhefka, RN) Frequency (min): 2-3 (09/05/2016 09:30:Negra Marhefka, RN) Frequency (min): 2-3 (09/05/2016 09:15:Negra Marhefka, RN) Frequency (min): 1-3 (09/05/2016 09:00:Negra Marhefka, RN) Frequency (min): 2-3 (09/05/2016 08:45:Negra Marhefka, RN) Frequency (min): 2-2.5 (09/05/2016 08:30:Negra Marhefka, RN) Frequency (min): 2-4 (09/05/2016 08:15:Negrakelley Goodman, RN) Frequency (min): 2-4 (09/05/2016 08:00:Negra Rex, RN) Frequency (min): 1-3 (09/05/2016 07:45:Negra Rex, RN) Frequency (min): 2-4 (09/05/2016 07:15:Negra Rex, RN) Frequency (min): 4-4.5 (09/05/2016 07:00:Magalysspencer Parra, RN) Frequency (min): 2.5-3.5 (09/05/2016 06:45:Magalys Fidel, RN) Frequency (min): 4.5-5.5 (09/05/2016 06:30:Magalys Fidel, RN) Frequency (min): 10.5 (09/05/2016 06:15:aMgalys Parra, RN) Frequency (min): 2.5-5.5 (09/05/2016 06:00:Magalys Parra RN) Frequency (min): 5.5-6.5 (09/05/2016 04:16:Magalys Parra, RN) Frequency (min): irreg (09/05/2016 04:00:Magalys Parra RN) Frequency (min): irreg (09/05/2016 03:30:Magalys Parra RN) Duration (sec): 50-70 (09/05/2016 22:16:Giuliana Alejo RN) Duration (sec): 50-80 (09/05/2016 22:00:Giuliana Alejo RN) Duration (sec): 40-60 (09/05/2016 21:45:Priscilla Monet RN) Duration (sec): 40-70 (09/05/2016 21:30:Priscilla Monet RN) Duration (sec): 50-90 (09/05/2016 21:15:Priscilla Monet RN) Duration (sec): 30-60 (09/05/2016 21:00:Priscilla Monet RN) Duration (sec): 50-60 (09/05/2016 20:45:Priscilla Monet RN) Duration (sec): 50-90 (09/05/2016 20:30:Priscilla Monet RN) Duration (sec): 50-90 (09/05/2016 20:15:Priscilla Monet RN) Duration (sec): 50-110 (09/05/2016 20:00:Priscilla Monet RN) Duration (sec): 60-90 (09/05/2016 19:45:Priscilla Monet RN) Duration (sec): 60-80 (09/05/2016 19:30:Priscilla Monet RN) Duration (sec): 70-90 (09/05/2016 19:15:Negra Goodman RN) Duration (sec): 60-140 (09/05/2016 19:00:Negra Goodman RN) Duration (sec): 60-110 (09/05/2016 18:45:Negra Goodman RN) Duration (sec): 70-90 (09/05/2016 18:30:Negra Goodman RN) Duration (sec): 80-100 (09/05/2016 18:15:Negra Goodman RN) Duration (sec): 70-120 (09/05/2016 18:00:Negra Goodman RN) Duration (sec): 60-120 (09/05/2016 17:45:Negra Goodman RN) Duration (sec): 60-80 (09/05/2016 17:30:Negra Goodman RN) Duration (sec): 50-110 (09/05/2016 17:15:Negra Goodman RN) Duration (sec): 50-90 (09/05/2016 17:00:Negra Goodman RN) Duration (sec): 50-110 (09/05/2016 16:45:Negra Goodman RN) Duration (sec): 40-80 (09/05/2016 16:30:Negra Goodman, RN) Duration (sec): 60-100 (09/05/2016 16:15:Negra Goodman RN) Duration (sec): 60-80 (09/05/2016 16:00:Negrakelley Goodman, RN) Duration (sec): 90-210 (09/05/2016 15:45:Negra Rex, RN) Duration (sec): 80-120 (09/05/2016 15:30:Negra Rex, RN) Duration (sec): 50-130 (09/05/2016 15:15:Negra Goodman, RN) Duration (sec): 50-90 (09/05/2016 15:00:Negra Rex, RN) Duration (sec): 70-110 (09/05/2016 14:45:Negra Rex, RN) Duration (sec): 60-120 (09/05/2016 14:30:Negra Rex, RN) Duration (sec): 40-80 (09/05/2016 14:15:Negra Goodman, RN) Duration (sec): 50-60 (09/05/2016 14:00:Negra Rex, RN) Duration (sec): 50-100 (09/05/2016 13:45:Negra Rex, RN) Duration (sec): 50-60 (09/05/2016 13:30:Negra Rex, RN) Duration (sec): 60-110 (09/05/2016 13:15:Negra Rex, RN) Duration (sec): 50-80 (09/05/2016 13:00:Negra Goodman, RN) Duration (sec): 60-80 (09/05/2016 12:45:Negra Rex, RN) Duration (sec): 60-100 (09/05/2016 12:30:Negra Rex, RN) Duration (sec): 80-90 (09/05/2016 12:15:Negra Rex, RN) Duration (sec): 60-110 (09/05/2016 12:00:Negra Rex, RN) Duration (sec): 50-80 (09/05/2016 11:30:Negra Goodman, RN) Duration (sec): 90-220 (09/05/2016 11:15:Negra Goodman, RN) Duration (sec): 90-100 (09/05/2016 11:00:Negra Rex, RN) Duration (sec): 60-70 (09/05/2016 10:45:Negra Rex, RN) Duration (sec): 50-140 (09/05/2016 10:30:Negra Rex, RN) Duration (sec): 70-90 (09/05/2016 10:15:Negra Rex, RN) Duration (sec): 50-80 (09/05/2016 10:00:Negra Rex, RN) Duration (sec): 60-80 (09/05/2016 09:45:Negra Goodman, RN) Duration (sec): 50-80 (09/05/2016 09:30:Negra Rex, RN) Duration (sec): 60-120 (09/05/2016 09:15:Negra Goodman RN) Duration (sec): 60-110 (09/05/2016 09:00:Negra Rex, RN) Duration (sec): 70-120 (09/05/2016 08:45:Negra Goodman, RN) Duration (sec): 50-80 (09/05/2016 08:30:Negra Goodman, RN) Duration (sec): 60-80 (09/05/2016 08:15:Negra Goodman, RN) Duration (sec): 80-100 (09/05/2016 08:00:Negra Goodman, RN) Duration (sec): 40-80 (09/05/2016 07:45:Negra Goodman, RN) Duration (sec): 80-100 (09/05/2016 07:15:Negra Goodman, RN) Duration (sec): 50-80 (09/05/2016 07:00:Magalys Parra RN) Duration (sec): 50-80 (09/05/2016 06:45:Magalys Parra RN) Duration (sec): 40-100 (09/05/2016 06:30:Magalys Parra RN) Duration (sec): 80 (09/05/2016 06:15:Magalys Parra RN) Duration (sec): 60-120 (09/05/2016 06:00:Magalys Parra RN) Duration (sec): 90-120 (09/05/2016 04:16:Magalys Parra RN) Duration (sec): 60-100 (09/05/2016 04:00:Magalys Parra RN) Duration (sec): 70-80 (09/05/2016 03:30:Magalys Parra RN) Quality: Moderate to Strong (09/05/2016 22:16:Giuliana Aeljo RN) Quality: Moderate to Strong (09/05/2016 22:00:Giuliana Alejo RN) Quality: Moderate (09/05/2016 21:45:Priscilla Monet RN) Quality: Moderate to Strong (09/05/2016 21:30:Priscilla Monet RN) Quality: Moderate (09/05/2016 21:15:Priscilla Monet RN) Quality: Moderate (09/05/2016 21:00:Priscilla Monet RN) Quality: Moderate (09/05/2016 20:45:Priscilla Monet RN) Quality: Moderate (09/05/2016 20:30:Priscilla Monet RN) Quality: Moderate (09/05/2016 20:15:Priscilla Monet RN) Quality: Moderate (09/05/2016 20:00:Priscilla Monet RN) Quality: Moderate (09/05/2016 19:45:Priscilla oMnet RN) Quality: Moderate (09/05/2016 19:30:Priscilla Monet RN) Quality: Moderate to Strong (09/05/2016 19:15:Negra Goodman RN) Quality: Moderate to Strong (09/05/2016 19:00:Negra Goodman RN) Quality: Moderate to Strong (09/05/2016 18:45:Negra Goodman RN) Quality: Moderate to Strong (09/05/2016 18:30:Negra Goodman RN) Quality: Moderate to Strong (09/05/2016 18:15:Negra Marhefka, RN) Quality: Moderate to Strong (09/05/2016 18:00:Negra Rex, RN) Quality: Moderate to Strong (09/05/2016 17:45:Negra Rex, RN) Quality: Moderate to Strong (09/05/2016 17:30:Negra Duranfka, RN) Quality: Moderate to Strong (09/05/2016 17:15:Negra Rex, RN) Quality: Moderate to Strong (09/05/2016 17:00:Negra Duranfka, RN) Quality: Moderate to Strong (09/05/2016 16:45:Negra Duranfka, RN) Quality: Moderate to Strong (09/05/2016 16:30:Negra Duranfka, RN) Quality: Moderate to Strong (09/05/2016 16:15:Negra Duranfkristina, RN) Quality: Moderate to Strong (09/05/2016 16:00:Negra Rex, RN) Quality: Moderate to Strong (09/05/2016 15:45:Negra Rex, RN) Quality: Moderate to Strong (09/05/2016 15:30:Negra Duranfka, RN) Quality: Moderate to Strong (09/05/2016 15:15:Negra Duranfka, RN) Quality: Moderate to Strong (09/05/2016 15:00:Negra Duranfkristina, RN) Quality: Moderate to Strong (09/05/2016 14:45:Negra Rex, RN) Quality: Moderate to Strong (09/05/2016 14:30:Negra Lylaka, RN) Quality: Moderate (09/05/2016 14:15:Negra Duranfka, RN) Quality: Moderate (09/05/2016 14:00:Negra Lylaka, RN) Quality: Moderate (09/05/2016 13:45:Negra Duranfka, RN) Quality: Moderate (09/05/2016 13:30:Negra Duranfka, RN) Quality: Moderate (09/05/2016 13:15:Negra Duranfka, RN) Quality: Moderate (09/05/2016 13:00:Negra Duranfka, RN) Quality: Moderate (09/05/2016 12:45:Negra Marhefka, RN) Quality: Moderate (09/05/2016 12:30:Negra Marhefka, RN) Quality: Moderate (09/05/2016 12:15:Negra Marhefka, RN) Quality: Moderate (09/05/2016 12:00:Negra Marhefka, RN) Quality: Moderate (09/05/2016 11:30:Negra Marhefka, RN) Quality: Moderate (09/05/2016 11:15:Negra Marhefka, RN) Quality: Moderate (09/05/2016 11:00:Negra Marhefka, RN) Quality: Moderate to Strong (09/05/2016 10:45:Negra Marhefka, RN) Quality: Moderate to Strong (09/05/2016 10:30:Negra Marhefka, RN) Quality: Moderate (09/05/2016 10:15:Negra Marhefka, RN) Quality: Moderate (09/05/2016 10:00:Negra Marhefka, RN) Quality: Moderate (09/05/2016 09:45:Negra Marhefka, RN) Quality: Moderate (09/05/2016 09:30:Negra Marhefka, RN) Quality: Moderate (09/05/2016 09:15:Negra Marhefka, RN) Quality: Moderate (09/05/2016 09:00:Negra Marhefka, RN) Quality: Moderate (09/05/2016 08:45:Negra Marhefka, RN) Quality: Moderate (09/05/2016 08:30:Negra Marhefka, RN) Quality: Moderate (09/05/2016 08:15:Negra Marhefka, RN) Quality: Moderate (09/05/2016 08:00:Negra Marhefka, RN) Quality: Moderate (09/05/2016 07:45:Negra Marhefka, RN) Quality: Moderate (09/05/2016 07:15:Negra Marhefka, RN) Quality: Mild/Moderate (09/05/2016 07:00:Magalys Parra RN) Quality: Mild/Moderate (09/05/2016 06:45:Magalys Sarahwood, RN) Quality: Mild/Moderate (09/05/2016 06:30:Magalys Ledgerwood, RN) Quality: Mild/Moderate (09/05/2016 06:15:Magalys Ledgerwood, RN) Quality: Mild/Moderate (09/05/2016 06:00:Magalys Noamgerwood, RN) Quality: Mild/Moderate (09/05/2016 04:16:Magalys Fidel, RN) Quality: Mild/Moderate (09/05/2016 04:00:Magalys Ledgerwood, RN) Quality: Mild/Moderate (09/05/2016 03:30:Magalys Ledgerwood, RN) Pattern: Normal: <= 5 Contractions in 10 Minutes (09/05/2016 07:00:Magalys Fidel, RN) Pattern: Normal: <= 5 Contractions in 10 Minutes (09/05/2016 06:45:Magalys Fidel, RN) Pattern: Normal: <= 5 Contractions in 10 Minutes (09/05/2016 06:30:Magalys Fidel, RN) Pattern: Normal: <= 5 Contractions in 10 Minutes (09/05/2016 06:15:Magalys Sarahwood, RN) Pattern: Normal: <= 5 Contractions in 10 Minutes (09/05/2016 06:00:Magalys Noamgerwood, RN) Pattern: Normal: <= 5 Contractions in 10 Minutes (09/05/2016 04:16:Magalys Fidel, RN) Pattern: Normal: <= 5 Contractions in 10 Minutes (09/05/2016 04:00:Magalys Fidel, RN) Pattern: Normal: <= 5 Contractions in 10 Minutes (09/05/2016 03:30:Magalys Ledgerwood, RN) Resting Tone Rivereno: Relaxed (09/05/2016 22:16:Giuliana Alejo RN) Resting Tone Rivereno: Relaxed (09/05/2016 22:00:Priscilla Monet RN) Resting Tone Rivereno: Relaxed (09/05/2016 21:45:Priscilla Monet RN) Resting Tone Rivereno: Relaxed (09/05/2016 21:30:Priscilla Monet RN) Resting Tone Rivereno: Relaxed (09/05/2016 21:15:Priscilla Monet RN) Resting Tone Rivereno: Relaxed (09/05/2016 21:00:Priscilla Monet RN) Resting Tone Rivereno: Relaxed (09/05/2016 20:45:Priscilla Monet RN) Resting Tone Rivereno: Relaxed (09/05/2016 20:30:Priscilla Monet RN) Resting Tone Rivereno: Relaxed (09/05/2016 20:15:Priscilla Monet RN) Resting Tone Rivereno: Relaxed (09/05/2016 20:00:Priscilla Monet RN) Resting Tone Rivereno: Relaxed (09/05/2016 19:45:Priscilla Monet RN) Resting Tone Rivereno: Relaxed (09/05/2016 19:30:Priscilla oMnet RN) Resting Tone Rivereno: Relaxed (09/05/2016 19:15:Negra Goodman RN) Resting Tone Rivereno: Relaxed (09/05/2016 19:00:Negra Goodman RN) Resting Tone Rivereno: Relaxed (09/05/2016 18:45:Negra Goodman RN) Resting Tone Rivereno: Relaxed (09/05/2016 18:30:Negra Goodman RN) Resting Tone Rivereno: Relaxed (09/05/2016 18:15:Negra Goodman RN) Resting Tone Rivereno: Relaxed (09/05/2016 18:00:Negra Goodman RN) Resting Tone Rivereno: Relaxed (09/05/2016 17:45:Ngera Goodman RN) Resting Tone Rivereno: Relaxed (09/05/2016 17:30:Negra Goodman RN) Resting Tone Rivereno: Relaxed (09/05/2016 17:15:Negra Goodman RN) Resting Tone Rivereno: Relaxed (09/05/2016 17:00:Negra Goodman RN) Resting Tone Rivereno: Relaxed (09/05/2016 16:45:Negra Goodman RN) Resting Tone Rivereno: Relaxed (09/05/2016 16:30:Negra Goodman RN) Resting Tone Rivereno: Relaxed (09/05/2016 16:15:Negra Goodman RN) Resting Tone Rivereno: Relaxed (09/05/2016 16:00:Negra Goodman RN) Resting Tone Rivereno: Relaxed (09/05/2016 15:45:Negra Goodman RN) Resting Tone Rivereno: Relaxed (09/05/2016 15:30:Negra Goodman RN) Resting Tone Rivereno: Relaxed (09/05/2016 15:15:Negra Goodman RN) Resting Tone Rivereno: Relaxed (09/05/2016 15:00:Negra Goodman RN) Resting Tone Rivereno: Relaxed (09/05/2016 14:45:Negra Goodman RN) Resting Tone Rivereno: Relaxed (09/05/2016 14:30:Negra Goodman RN) Resting Tone Rivereno: Relaxed (09/05/2016 14:15:Negra Goomdan RN) Resting Tone Rivereno: Relaxed (09/05/2016 14:00:Negra Goodman RN) Resting Tone Rivereno: Relaxed (09/05/2016 13:45:Negra Goodman RN) Resting Tone Rivereno: Relaxed (09/05/2016 13:30:Negra Goodman RN) Resting Tone Rivereno: Relaxed (09/05/2016 13:15:Negra Goodman RN) Resting Tone Rivereno: Relaxed (09/05/2016 13:00:Negra Goodman RN) Resting Tone Rivereno: Relaxed (09/05/2016 12:45:Negra Goodman RN) Resting Tone Rivereno: Relaxed (09/05/2016 12:30:Negra Goodman RN) Resting Tone Rivereno: Relaxed (09/05/2016 12:15:Negra Goodman RN) Resting Tone Rivereno: Relaxed (09/05/2016 12:00:Negra Goodman RN) Resting Tone Rivereno: Relaxed (09/05/2016 11:30:Negra Goodman RN) Resting Tone Rivereno: Relaxed (09/05/2016 11:15:Negra Goodman RN) Resting Tone Rivereno: Relaxed (09/05/2016 11:00:Negra Goodman RN) Resting Tone Rivereno: Relaxed (09/05/2016 10:45:Negra Goodman RN) Resting Tone Rivereno: Relaxed (09/05/2016 10:30:Negra Goodman RN) Resting Tone Rivereno: Relaxed (09/05/2016 10:15:Negra Goodman RN) Resting Tone Rivereno: Relaxed (09/05/2016 10:00:Negra Goodman RN) Resting Tone Rivereno: Relaxed (09/05/2016 09:45:Negra Goodman RN) Resting Tone Rivereno: Relaxed (09/05/2016 09:30:Negra Goodman RN) Resting Tone Rivereno: Relaxed (09/05/2016 09:15:Negra Goodman RN) Resting Tone Rivereno: Relaxed (09/05/2016 09:00:Negra Goodman RN) Resting Tone Rivereno: Relaxed (09/05/2016 08:45:Negra Goodman RN) Resting Tone Rivereno: Relaxed (09/05/2016 08:30:Negra Goodman RN) Resting Tone Rivereno: Relaxed (09/05/2016 08:15:Negra Goodman RN) Resting Tone Rivereno: Relaxed (09/05/2016 08:00:Negra Goodman RN) Resting Tone Rivereno: Relaxed (09/05/2016 07:45:Negra Goodman RN) Resting Tone Rivereno: Relaxed (09/05/2016 07:15:Negra Goodman RN) Resting Tone Rivereno: Relaxed (09/05/2016 07:00:Magalys Parra RN) Resting Tone Rivereno: Relaxed (09/05/2016 06:45:Magalys Parra RN) Resting Tone Rivereno: Relaxed (09/05/2016 06:30:Magalys Parra RN) Resting Tone Rivereno: Relaxed (09/05/2016 06:15:Magalys Parra RN) Resting Tone Rivereno: Relaxed (09/05/2016 06:00:Magalys Parra RN) Resting Tone Rivereno: Relaxed (09/05/2016 04:16:Magalys Parra RN) Resting Tone Rivereno: Relaxed (09/05/2016 04:00:Magalys Parra RN) Resting Tone Rivereno: Relaxed (09/05/2016 03:30:Magalys Parra RN) Contraction Comments: contractions not tracing well monitors adjusted (09/05/2016 22:00:Priscilla Monet RN) Contraction Comments: RN @ bedside palpating ctxs (09/05/2016 12:15:Negra Goodman RN) Contraction Comments: UTD RN @ bedside adjusting ultrasound (09/05/2016 11:45:Negra Goodman RN) Contraction Comments: UTD frequency, repositioning patient (09/05/2016 11:30:Negra Goodman RN) Contraction Comments: UTD Pt OOB to bathroom (09/05/2016 07:30:Negra Goodman RN) Dilatation (cm): 10.0 (09/05/2016 18:27:Negra Goodman RN) Dilatation (cm): 9.5 (09/05/2016 16:56:Negra Goodman RN) Dilatation (cm): 9.0 (09/05/2016 15:52:Negra Goodman RN) Dilatation (cm): 9.5 (09/05/2016 14:47:Negra Goodman RN) Dilatation (cm): 7.0 (09/05/2016 12:52:Chanda Bowers RN) Dilatation (cm): 7.0 (09/05/2016 11:00:Negra Goodman RN) Dilatation (cm): 7.0 (09/05/2016 10:03:Chandrika Mccall RN) Dilatation (cm): 5.0 (09/05/2016 08:43:Negra Goodman RN) Dilatation (cm): 1.5 (09/05/2016 02:55:Magalys Parra RN) Effacement (%): 100 (09/05/2016 18:27:Negra Goodman RN) Effacement (%): 100 (09/05/2016 16:56:Negra Goodman RN) Effacement (%): 100 (09/05/2016 15:52:Negra Goodman RN) Effacement (%): 100 (09/05/2016 14:47:Negra Goodman RN) Effacement (%): 80 (09/05/2016 12:52:Chanda Bowers RN) Effacement (%): 90 (09/05/2016 11:00:Negra Goodman RN) Effacement (%): 80 (09/05/2016 10:03:Chandrika Mccall RN) Effacement (%): 80 (09/05/2016 08:43:Negra Goodman RN) Effacement (%): 60 (09/05/2016 02:55:Magalys Parra RN) Station: -1 (09/05/2016 19:53:Giuliana Alejo RN) Station: 0 (09/05/2016 18:27:Negra Goodman RN) Station: 0 (09/05/2016 16:56:Negra Goodman RN) Station: -1 (09/05/2016 15:52:Negra Goodman RN) Station: -1 (09/05/2016 14:47:Negra Goodman RN) Station: -1 (09/05/2016 12:52:Chanda Bowers RN) Station: -1 (09/05/2016 11:00:Negra Goodman RN) Station: -1 (09/05/2016 10:03:Chandrika Mccall RN) Station: -1 (09/05/2016 08:43:Negra Goodman RN) Station: -2 (09/05/2016 02:55:Magalys Parra RN) Level of Consciousness: Fully Conscious (09/05/2016 07:35:Negra Goodman RN) Level of Consciousness: Fully Conscious (09/05/2016 02:59:Magalys Parra RN) DTR's/Clonus: DTRs 2+; No Clonus (09/05/2016 07:35:Negra Goodman RN) DTR's/Clonus: DTRs 2+; No Clonus (09/05/2016 02:59:Magalys Parra RN) Headache: Denies (09/05/2016 07:35:Negra Goodman RN) Headache: Denies (09/05/2016 02:59:Magalys Parra RN) Dizziness: No (09/05/2016 07:35:Negra Goodman RN) Dizziness: No (09/05/2016 02:59:Magalys Parra RN) Blurred Vision: No (09/05/2016 07:35:Negra Goodman RN) Blurred Vision: No (09/05/2016 02:59:Magalys Parra RN) Extremity Numbness/Tingling : None (09/05/2016 07:35:Negra Goodman RN) Extremity Numbness/Tingling : None (09/05/2016 02:59:Magalys Parra RN) Extremity Movement: Full Range of Motion (09/05/2016 07:35:Negra Goodman RN) Extremity Movement: Full Range of Motion (09/05/2016 02:59:Magalys Parra RN) Heart Rhythm: Regular (09/05/2016 07:35:Negra Goodman RN) Nailbeds: Bandon (09/05/2016 07:35:Negra Goodman RN) Nailbeds: Bandon (09/05/2016 02:59:Magalys Parra RN) Capillary Refill: Less than 3 Seconds (09/05/2016 07:35:Negra Goodman RN) Capillary Refill: Less than 3 Seconds (09/05/2016 02:59:Magalys Parra RN) Lower Extremities Edema: Bilateral Lower Extremities (09/05/2016 07:35:Negra Goodman RN) Lower Extremities Edema Degree: Pitting; 1+ (09/05/2016 07:35:Negra Goodman RN) Upper Extremities Edema: None (09/05/2016 07:35:Negra Goodman RN) Upper Extremities Edema Degree: None (09/05/2016 07:35:Negra Goodman RN) Facial Edema: None (09/05/2016 07:35:Negra Goodman RN) Facial Edema: None (09/05/2016 02:59:Magalys Parra RN) Valery's Sign Left Leg: Negative (09/05/2016 07:35:Negra Goodman RN) Valery's Sign Left Leg: Negative (09/05/2016 02:59:Magalys Parra RN) Valery's Sign Right Leg: Negative (09/05/2016 07:35:Negra Goodman RN) Valery's Sign Right Leg: Negative (09/05/2016 02:59:Magalys Parra RN) DVT Risk Age: Age less than 41 years (09/05/2016 07:35:Negra Goodman RN) DVT Risk BMI: BMI<31 (09/05/2016 07:35:Negra Goodman RN) DVT Risk Surgery: None Applicable (09/05/2016 07:35:Negra Goodman RN) DVT Risk Other: Women Only- or (<1 month) (09/05/2016 07:35:Negra Goodman RN) DVT Risk Total: 1 (09/05/2016 07:35:QS system process) DVT Risk Text: Low Risk (<10%) No specific measures, early ambulation (09/05/2016 07:35:QS system process) Respiratory Effort: Unlabored; Regular Rhythm; Equal Expansion (09/05/2016 07:35:Negra Goodman RN) Respiratory Effort: Unlabored; Regular Rhythm; Equal Expansion (09/05/2016 02:59:Magalys Parra RN) Breath Sounds, Left: Clear and Equal (09/05/2016 07:35:Negra Goodman RN) Breath Sounds, Left: Clear and Equal (09/05/2016 02:59:Magalys Parra RN) Breath Sounds, Right: Clear and Equal (09/05/2016 07:35:Negra Goodman RN) Breath Sounds, Right: Clear and Equal (09/05/2016 02:59:Magalys Parra RN) Cough Productivity: None (09/05/2016 07:35:Negra Goodman RN) Cough Productivity: None (09/05/2016 02:59:Magalys Parra RN) Nausea/Vomiting: Denies (09/05/2016 07:35:Negra Goodman RN) Nausea/Vomiting: Denies (09/05/2016 02:59:Magalys Parra RN) Bowel Sounds: Normoactive (09/05/2016 07:35:Negra Goodman RN) Bowel Sounds: Normoactive; All Quadrants (09/05/2016 02:59:Magalys Parra RN) RUQ Epigastric Pain: Denies (09/05/2016 07:35:Negra Goodman RN) RUQ Epigastric Pain: Denies (09/05/2016 02:59:Magalys Parra RN) Bowel Patterns: Soft, Formed Stool (09/05/2016 07:35:Negra Goodman RN) Bowel Patterns: Soft, Formed Stool (09/05/2016 02:59:Magalys Parra RN) Hemorrhoids: None (09/05/2016 07:35:Negra Goodman RN) Hemorrhoids: None (09/05/2016 02:59:Magalys Parra RN) Diet Type: Regular diet (09/05/2016 07:35:Negra Goodman RN) Diet Type: Regular diet (09/05/2016 02:59:Magalys Parra RN) Last Meal: 09/04/2016 19:30 (09/05/2016 02:59:Magalys Parra RN) Bladder: Nondistended (09/05/2016 07:35:Negra Goodman RN) Bladder: Nondistended (09/05/2016 02:59:Maaglys Parra RN) Frequency of Urination: No (09/05/2016 07:35:Negra Goodman RN) Frequency of Urination: No (09/05/2016 02:59:Magalys Parra RN) Urination Burning: No (09/05/2016 07:35:Negra Goodman RN) Urination Burning: No (09/05/2016 02:59:Magalys Parra RN) CVA Tenderness: No (09/05/2016 07:35:Negra Goodman RN) CVA Tenderness: No (09/05/2016 02:59:Magalys Parra RN) Vaginal Bleeding: None (09/05/2016 02:59:Magalys Parra RN) Vaginal Discharge Color: N/A (09/05/2016 02:59:Magalys Parra RN) Skin Color: Normal for Race (09/05/2016 07:35:Negra Goodman RN) Skin Color: Normal for Race (09/05/2016 02:59:Magalys Parar RN) Skin Temperature: Warm (09/05/2016 07:35:Negra Goodman RN) Skin Temperature: Warm (09/05/2016 02:59:Magalys Parra RN) Skin Moisture: Dry (09/05/2016 07:35:Negra Goodman RN) Skin Moisture: Dry (09/05/2016 02:59:Magalys Prara RN) Ari Scale Sensory Perception: No Impairment- Responds to verbal commands. Has no sensory deficit which would limit ability to feel or voice pain or discomfort (09/05/2016 07:35:Negra Goodman RN) Ari Scale Sensory Perception: No Impairment- Responds to verbal commands. Has no sensory deficit which would limit ability to feel or voice pain or discomfort (09/05/2016 02:59:Magalys Parra RN) Ari Scale Moisture: Rarely Moist- Skin is usually dry. Linen only requires changing at routine intervals (09/05/2016 07:35:Negra Goodman RN) Ari Scale Moisture: Rarely Moist- Skin is usually dry. Linen only requires changing at routine intervals (09/05/2016 02:59:Magalys Parra RN) Ari Scale Activity: Walks Occasionally- Walks occasionally during day, but for very short distances, with or without assistance. Spends majority of each shift in bed or chair. (09/05/2016 07:35:Negra Goodman RN) Ari Scale Activity: Walks Frequently- Walks outside the room at least twice a day and inside room at least every 2 hours during the day. (09/05/2016 02:59:Magalys Parra RN) Ari Scale Mobility: No Limitations- Makes major and frequent changes in position without assistance (09/05/2016 07:35:Negra Goodman RN) Ari Scale Mobility: No Limitations- Makes major and frequent changes in position without assistance (09/05/2016 02:59:Magalys Parra RN) Ari Scale Nutrition: Probably Inadequate- Rarely eats a complete meal and generally eats only about 1/2 of any food offered. Protein intake includes only 3 servings of meat or dairy products per day. Occasionally will take a dietary supplement OR receives less than optimum amount of liquid diet or tube feeding (09/05/2016 07:35:Negra Goodman RN) Ari Scale Nutrition: Excellent- Eats most of every meal. Never refuses a meal. Usually eats a total of 4 or more servings of meat and dairy products. Occasionally eats between meals. Does not require supplementation (09/05/2016 02:59:Magalys Parra RN) Ari Scale Friction and Shear: No Apparent Problem- Moves in bed and in chair independently and has sufficient muscle strength to lift up completely during move. Maintains good position in bed or chair at all times (09/05/2016 07:35:Negra Goodman RN) Ari Scale Friction and Shear: No Apparent Problem- Moves in bed and in chair independently and has sufficient muscle strength to lift up completely during move. Maintains good position in bed or chair at all times (09/05/2016 02:59:Magalys Parra RN) Ari Scale Total: 20 (09/05/2016 07:35:QS system process) Ari Scale Total: 23 (09/05/2016 02:59:QS system process) Ari Scale Risk: No Risk of Pressure Ulcer Noted at this Time (09/05/2016 07:35:QS system process) Ari Scale Risk: No Risk of Pressure Ulcer Noted at this Time (09/05/2016 02:59:QS system process) Family Support: Family supportive (Annotations: Pt's mom is home with patient's daughter, pt by herself for labor ) (09/05/2016 07:35:Negra Goodman RN) Family Support: Family supportive (09/05/2016 02:59:Magalys Parra RN) Emotional State: Crying (09/05/2016 07:35:Negra Goodman RN) Emotional State: Calm/Relaxed (09/05/2016 02:59:Magalys Parra RN) Call Agudelo Within Reach: Yes (09/05/2016 07:35:Negra Goodman RN) Call Agudelo Within Reach: Yes (09/05/2016 02:59:Magalys Parra RN) Side Rails Up: Yes (09/05/2016 07:35:Negra Goodman RN) Side Rails Up: Yes (09/05/2016 02:59:Magalys Parra RN) Bed Wheels Locked: Yes (09/05/2016 07:35:Negra Goodman RN) Bed Wheels Locked: Yes (09/05/2016 02:59:Magalys Parra RN) Arm Bands Present: Yes (09/05/2016 07:35:Negra Goodman RN) Arm Bands Present: Yes (09/05/2016 02:59:Magalys Parra RN) Isolation: [place] (09/05/2016 07:35:Negra Goodman RN) Fall Risk History of Falling: (0) No (09/05/2016 07:35:Negra Goodman RN) Fall Risk History of Falling: (0) No (09/05/2016 02:59:Magalys Parra RN) Fall Risk Secondary Diagnosis: (0) No (09/05/2016 07:35:Negra Goodman RN) Fall Risk Secondary Diagnosis: (0) No (09/05/2016 02:59:Magalys Parra RN) Fall Risk Ambulatory Aid: (0) None/Bedrest/Wheelchair/Nurse Assist (09/05/2016 07:35:Negra Goodman RN) Fall Risk Ambulatory Aid: (0) None/Bedrest/Wheelchair/Nurse Assist (09/05/2016 02:59:Magalys Parra RN) Fall Risk IV Therapy: (20) Yes (09/05/2016 07:35:Negra Goodman RN) Fall Risk IV Therapy: (0) No (09/05/2016 02:59:Magalys Parra RN) Fall Risk Gait: (0) Normal/Bedrest/Immobile (09/05/2016 07:35:Negra Goodman RN) Fall Risk Gait: (0) Normal/Bedrest/Immobile (09/05/2016 02:59:Magalys Parra RN) Fall Risk Mental Status: (0) Oriented to Own Ability (09/05/2016 07:35:Negra Goodman RN) Fall Risk Mental Status: (0) Oriented to Own Ability (09/05/2016 02:59:Magalys Parra RN) Fall Risk Score: 20 (09/05/2016 07:35:QS system process) Fall Risk Score: 0 (09/05/2016 02:59:QS system process) Fall Risk Score Definition: No Risk: No action required (09/05/2016 07:35:QS system process) Fall Risk Score Definition: No Risk: No action required (09/05/2016 02:59:QS system process) Recent Exp Communicable Disease: No (09/05/2016 07:35:Negra Goodman RN) Cough or Fever: No (09/05/2016 07:35:Negra Goodman RN) Foreign Travel Past 10 Days: No (09/05/2016 07:35:Negra Goodman RN) Open Wounds or Sores: No (09/05/2016 07:35:Negra Goodman RN) Prior Antibiotic Resistance Tx: No (09/05/2016 07:35:Negra Goodman RN) Cultures Obtained: Not Applicable (09/05/2016 07:35:Negra Goodman RN) Isolation Initiated: No (09/05/2016 07:35:Negra Goodman RN) Pt/Family Education: Not Applicable (09/05/2016 07:35:Negra Goodman RN) FHR Baseline Rate (bpm) Baby A: 160 (09/05/2016 22:16:Giuliana Alejo RN) FHR Baseline Rate (bpm) Baby A: 165 (09/05/2016 22:00:Priscilla Monet RN) FHR Baseline Rate (bpm) Baby A: 150 (09/05/2016 21:45:Priscilla Monet RN) FHR Baseline Rate (bpm) Baby A: 165 (09/05/2016 21:30:Priscilla Monet RN) FHR Baseline Rate (bpm) Baby A: 155 (09/05/2016 20:45:Priscilla Monet RN) FHR Baseline Rate (bpm) Baby A: 160 (09/05/2016 20:30:Priscilla Monet RN) FHR Baseline Rate (bpm) Baby A: 165 (09/05/2016 20:00:Priscilla Monet RN) FHR Baseline Rate (bpm) Baby A: 165 (09/05/2016 19:45:Priscilla Monet RN) FHR Baseline Rate (bpm) Baby A: 165 (09/05/2016 19:30:Priscilla Monet RN) FHR Baseline Rate (bpm) Baby A: 170 (09/05/2016 19:15:Chandrika Mccall RN) FHR Baseline Rate (bpm) Baby A: 165 (09/05/2016 19:00:Chandrika Mccall RN) FHR Baseline Rate (bpm) Baby A: 165 (09/05/2016 18:45:Chandrika Mccall RN) FHR Baseline Rate (bpm) Baby A: 165 (09/05/2016 18:30:Chandrika Mccall RN) FHR Baseline Rate (bpm) Baby A: 160 (09/05/2016 18:15:Chandrika Mccall RN) FHR Baseline Rate (bpm) Baby A: 155 (09/05/2016 18:00:Negra Goodman RN) FHR Baseline Rate (bpm) Baby A: 160 (09/05/2016 17:45:Negra Goodman RN) FHR Baseline Rate (bpm) Baby A: 165 (09/05/2016 17:30:Ngera Goodman RN) FHR Baseline Rate (bpm) Baby A: 170 (09/05/2016 17:15:Negra Goodman RN) FHR Baseline Rate (bpm) Baby A: 155 (09/05/2016 17:00:Negra Goodman RN) FHR Baseline Rate (bpm) Baby A: 165 (09/05/2016 16:45:Negra Goodman RN) FHR Baseline Rate (bpm) Baby A: 165 (09/05/2016 16:30:Negra Goodman RN) FHR Baseline Rate (bpm) Baby A: 165 (09/05/2016 16:15:Negra Goodman RN) FHR Baseline Rate (bpm) Baby A: 145 (09/05/2016 16:00:Negra Goodman RN) FHR Baseline Rate (bpm) Baby A: 155 (09/05/2016 15:45:Negra Goodman RN) FHR Baseline Rate (bpm) Baby A: 165 (09/05/2016 15:30:Negra Goodman RN) FHR Baseline Rate (bpm) Baby A: 155 (09/05/2016 15:15:Negra Goodman RN) FHR Baseline Rate (bpm) Baby A: 155 (09/05/2016 15:00:Negra Goodman RN) FHR Baseline Rate (bpm) Baby A: 155 (09/05/2016 14:45:Negra Goodman RN) FHR Baseline Rate (bpm) Baby A: 150 (09/05/2016 14:30:Negra Goodman RN) FHR Baseline Rate (bpm) Baby A: 140 (09/05/2016 14:15:Negra Goodman RN) FHR Baseline Rate (bpm) Baby A: 145 (09/05/2016 14:00:Negra Goodman RN) FHR Baseline Rate (bpm) Baby A: 145 (09/05/2016 13:45:Negra Goodman RN) FHR Baseline Rate (bpm) Baby A: 150 (09/05/2016 13:30:Negra Goodman RN) FHR Baseline Rate (bpm) Baby A: 150 (09/05/2016 13:15:Negra Goodman RN) FHR Baseline Rate (bpm) Baby A: 150 (09/05/2016 13:00:Negra Goodman RN) FHR Baseline Rate (bpm) Baby A: 155 (09/05/2016 12:45:Negra Goodman RN) FHR Baseline Rate (bpm) Baby A: 155 (09/05/2016 12:30:Negra Goodman RN) FHR Baseline Rate (bpm) Baby A: 155 (09/05/2016 12:15:Negra Goodman RN) FHR Baseline Rate (bpm) Baby A: 150 (09/05/2016 12:00:Negra Goodman RN) FHR Baseline Rate (bpm) Baby A: 150 (09/05/2016 11:30:Negra Goodman RN) FHR Baseline Rate (bpm) Baby A: 150 (09/05/2016 11:15:Negra Goodman RN) FHR Baseline Rate (bpm) Baby A: 145 (09/05/2016 11:00:Negra Goodman RN) FHR Baseline Rate (bpm) Baby A: 145 (09/05/2016 10:45:Negra Goodman RN) FHR Baseline Rate (bpm) Baby A: 140 (09/05/2016 10:30:Negra Goodman RN) FHR Baseline Rate (bpm) Baby A: 135 (09/05/2016 10:15:Negra Goodman RN) FHR Baseline Rate (bpm) Baby A: 135 (09/05/2016 10:00:Negra Goodman RN) FHR Baseline Rate (bpm) Baby A: 135 (09/05/2016 09:45:Negra Goodman RN) FHR Baseline Rate (bpm) Baby A: 140 (09/05/2016 09:30:Negra Goodman RN) FHR Baseline Rate (bpm) Baby A: 135 (09/05/2016 09:15:Negra Goodman RN) FHR Baseline Rate (bpm) Baby A: 135 (09/05/2016 09:00:Negra Goodman RN) FHR Baseline Rate (bpm) Baby A: 135 (09/05/2016 08:45:Negra Goodman RN) FHR Baseline Rate (bpm) Baby A: 135 (09/05/2016 08:30:Negra Goodman RN) FHR Baseline Rate (bpm) Baby A: 135 (09/05/2016 08:15:Negra Goodman RN) FHR Baseline Rate (bpm) Baby A: 135 (09/05/2016 08:00:Negra Goodman RN) FHR Baseline Rate (bpm) Baby A: 140 (09/05/2016 07:45:Negra Goodman RN) FHR Baseline Rate (bpm) Baby A: 135 (09/05/2016 07:15:Negra Goodman RN) FHR Baseline Rate (bpm) Baby A: 135 (09/05/2016 07:00:Magalys Parra RN) FHR Baseline Rate (bpm) Baby A: 135 (09/05/2016 06:45:Magalys Parra RN) FHR Baseline Rate (bpm) Baby A: 135 (09/05/2016 06:30:Magalys Parra RN) FHR Baseline Rate (bpm) Baby A: 135 (09/05/2016 06:15:Magalys Parra RN) FHR Baseline Rate (bpm) Baby A: 135 (09/05/2016 06:00:Magalys Parra RN) FHR Baseline Rate (bpm) Baby A: 135 (09/05/2016 04:16:Magalys Parra RN) FHR Baseline Rate (bpm) Baby A: 135 (09/05/2016 04:00:Magalys Parra RN) FHR Baseline Rate (bpm) Baby A: 135 (09/05/2016 03:30:Magalys Parra RN) Variability Baby A: Moderate 6-25 bpm (09/05/2016 22:16:Giuliana Alejo RN) Variability Baby A: Minimal - Undetectable to <=5 bpm (09/05/2016 22:00:Priscilla Monet RN) Variability Baby A: Minimal - Undetectable to <=5 bpm (09/05/2016 21:45:Priscilla Monet RN) Variability Baby A: Minimal - Undetectable to <=5 bpm (09/05/2016 21:30:Priscilla Monet RN) Variability Baby A: Moderate 6-25 bpm (09/05/2016 20:45:Priscilla Monet RN) Variability Baby A: Moderate 6-25 bpm (09/05/2016 20:30:Priscilla Monet RN) Variability Baby A: Moderate 6-25 bpm (09/05/2016 20:15:Priscilla Monet RN) Variability Baby A: Moderate 6-25 bpm (09/05/2016 20:00:Priscilla Monet RN) Variability Baby A: Moderate 6-25 bpm (09/05/2016 19:45:Priscilla Monet RN) Variability Baby A: Minimal - Undetectable to <=5 bpm (09/05/2016 19:30:Priscilla Monet RN) Variability Baby A: Moderate 6-25 bpm (09/05/2016 19:15:Chandrika Mccall RN) Variability Baby A: Moderate 6-25 bpm (09/05/2016 19:00:Chandrika Mccall RN) Variability Baby A: Moderate 6-25 bpm (09/05/2016 18:45:Chandrika Mccall RN) Variability Baby A: Moderate 6-25 bpm (09/05/2016 18:30:Chandrika Mccall RN) Variability Baby A: Moderate 6-25 bpm (09/05/2016 18:15:Chandrika Mccall RN) Variability Baby A: Moderate 6-25 bpm (09/05/2016 18:00:Negra Goodman RN) Variability Baby A: Moderate 6-25 bpm (09/05/2016 17:45:Negra Goodman RN) Variability Baby A: Moderate 6-25 bpm (09/05/2016 17:30:Negra Goodman RN) Variability Baby A: Moderate 6-25 bpm (09/05/2016 17:15:Negra Goodman RN) Variability Baby A: Moderate 6-25 bpm (09/05/2016 17:00:Negra Goodman RN) Variability Baby A: Moderate 6-25 bpm (09/05/2016 16:45:Negra Goodman RN) Variability Baby A: Moderate 6-25 bpm (09/05/2016 16:30:Negra Goodman RN) Variability Baby A: Moderate 6-25 bpm (09/05/2016 16:15:Negra Goodman RN) Variability Baby A: Moderate 6-25 bpm (09/05/2016 16:00:Negra Goodman RN) Variability Baby A: Moderate 6-25 bpm (09/05/2016 15:45:Negra Goodman RN) Variability Baby A: Moderate 6-25 bpm (09/05/2016 15:30:Negra Goodman RN) Variability Baby A: Moderate 6-25 bpm (09/05/2016 15:15:Negra Goodman, RN) Variability Baby A: Moderate 6-25 bpm (09/05/2016 15:00:Negra Goodman RN) Variability Baby A: Minimal - Undetectable to <=5 bpm (09/05/2016 14:45:Negra Goodman RN) Variability Baby A: Minimal - Undetectable to <=5 bpm (09/05/2016 14:30:Negra Goodman RN) Variability Baby A: Moderate 6-25 bpm (09/05/2016 14:15:Negra Goodman RN) Variability Baby A: Moderate 6-25 bpm (09/05/2016 14:00:Negra Goodman RN) Variability Baby A: Moderate 6-25 bpm (09/05/2016 13:45:Negra Goodman RN) Variability Baby A: Minimal - Undetectable to <=5 bpm (09/05/2016 13:30:Negra Goodman RN) Variability Baby A: Moderate 6-25 bpm (09/05/2016 13:15:Negra Goodman RN) Variability Baby A: Moderate 6-25 bpm (09/05/2016 13:00:Negra Goodman RN) Variability Baby A: Moderate 6-25 bpm (09/05/2016 12:45:Negra Goodman RN) Variability Baby A: Moderate 6-25 bpm (09/05/2016 12:30:Negra Goodman RN) Variability Baby A: Moderate 6-25 bpm (09/05/2016 12:15:Negra Goodman RN) Variability Baby A: Moderate 6-25 bpm (09/05/2016 12:00:Negra Goodman RN) Variability Baby A: Minimal - Undetectable to <=5 bpm (09/05/2016 11:30:Negra Goodman, RN) Variability Baby A: Moderate 6-25 bpm (09/05/2016 11:15:Negra Goodman RN) Variability Baby A: Moderate 6-25 bpm (09/05/2016 11:00:Negra Goodman RN) Variability Baby A: Moderate 6-25 bpm (09/05/2016 10:45:Negra Goodman RN) Variability Baby A: Moderate 6-25 bpm (09/05/2016 10:30:Negra Goodman RN) Variability Baby A: Moderate 6-25 bpm (09/05/2016 10:15:Negra Goodman RN) Variability Baby A: Moderate 6-25 bpm (09/05/2016 10:00:Negra Goodman RN) Variability Baby A: Moderate 6-25 bpm (09/05/2016 09:45:Negra Goodman RN) Variability Baby A: Moderate 6-25 bpm (09/05/2016 09:30:Negra Goodman RN) Variability Baby A: Moderate 6-25 bpm (09/05/2016 09:15:Negra Goodman RN) Variability Baby A: Moderate 6-25 bpm (09/05/2016 09:00:Negra Goodman RN) Variability Baby A: Moderate 6-25 bpm (09/05/2016 08:45:Negra Goodman RN) Variability Baby A: Moderate 6-25 bpm (09/05/2016 08:30:Negra Goodman RN) Variability Baby A: Moderate 6-25 bpm (09/05/2016 08:15:Negra Goodman RN) Variability Baby A: Moderate 6-25 bpm (09/05/2016 08:00:Negra Goodman RN) Variability Baby A: Moderate 6-25 bpm (09/05/2016 07:45:Negra Goodman RN) Variability Baby A: Moderate 6-25 bpm (09/05/2016 07:15:Negra Goodman RN) Variability Baby A: Moderate 6-25 bpm (09/05/2016 07:00:Magalys Parra RN) Variability Baby A: Moderate 6-25 bpm (09/05/2016 06:45:Magalys Parra RN) Variability Baby A: Moderate 6-25 bpm (09/05/2016 06:30:Magalys Parra RN) Variability Baby A: Moderate 6-25 bpm (09/05/2016 06:15:Magalys Parra RN) Variability Baby A: Moderate 6-25 bpm (09/05/2016 06:00:Magalys Parra RN) Variability Baby A: Moderate 6-25 bpm (09/05/2016 04:16:Magalys Parra RN) Variability Baby A: Moderate 6-25 bpm (09/05/2016 04:00:Magalys Parra RN) Variability Baby A: Moderate 6-25 bpm (09/05/2016 03:30:Magalys Parra RN) Accelerations Baby A: 10X10 (09/05/2016 22:16:Giuliana Alejo RN) Accelerations Baby A: 15X15 (09/05/2016 22:00:Giuliana Alejo RN) Accelerations Baby A: 15X15 (09/05/2016 21:15:Priscilla Monet RN) Accelerations Baby A: 15X15 (09/05/2016 20:45:Priscilla Monet RN) Accelerations Baby A: 15X15 (09/05/2016 20:30:Priscilla Monet RN) Accelerations Baby A: 15X15 (09/05/2016 20:15:Priscilla Monet RN) Accelerations Baby A: 15X15 (09/05/2016 20:00:Priscilla Monet RN) Accelerations Baby A: 15X15 (09/05/2016 19:45:Priscilla Monet RN) Accelerations Baby A: 15X15 (09/05/2016 19:30:Priscilla Monet RN) Accelerations Baby A: 15X15 (09/05/2016 19:15:Chandrika Mccall RN) Accelerations Baby A: 15X15 (09/05/2016 19:00:Chandrika Mccall RN) Accelerations Baby A: 15X15 (09/05/2016 18:45:Chandrika Mccall RN) Accelerations Baby A: 15X15 (09/05/2016 18:30:Chandrika Mccall RN) Accelerations Baby A: 15X15 (09/05/2016 18:15:Chandrika Mccall RN) Accelerations Baby A: 15X15 (09/05/2016 18:00:Negra Goodman RN) Accelerations Baby A: 15X15 (09/05/2016 17:45:Negra Goodman RN) Accelerations Baby A: 15X15 (09/05/2016 17:30:Negra Goodman RN) Accelerations Baby A: None (09/05/2016 17:15:Negra Goodman RN) Accelerations Baby A: 15X15 (09/05/2016 17:00:Negra Goodman RN) Accelerations Baby A: 15X15 (09/05/2016 16:45:Negra Goodman RN) Accelerations Baby A: 15X15 (09/05/2016 16:30:Negra Goodman RN) Accelerations Baby A: 15X15 (09/05/2016 16:15:Negra Goodman RN) Accelerations Baby A: 15X15 (09/05/2016 16:00:Negra Goodman RN) Accelerations Baby A: None (09/05/2016 15:45:Negra Goodman RN) Accelerations Baby A: 15X15 (09/05/2016 15:30:Negra Goodman RN) Accelerations Baby A: 15X15 (09/05/2016 15:15:Negra Goodman RN) Accelerations Baby A: 15X15 (09/05/2016 15:00:Negra Goodman RN) Accelerations Baby A: None (09/05/2016 14:45:Negra Goodman RN) Accelerations Baby A: None (09/05/2016 14:30:Negra Goodman RN) Accelerations Baby A: 15X15 (09/05/2016 14:15:Negra Goodman RN) Accelerations Baby A: 15X15 (09/05/2016 14:00:Negra Goodman RN) Accelerations Baby A: 15X15 (09/05/2016 13:45:Negra Goodman RN) Accelerations Baby A: 15X15 (09/05/2016 13:30:Negra Goodman RN) Accelerations Baby A: 15X15 (09/05/2016 13:15:Negra Goodman RN) Accelerations Baby A: 15X15 (09/05/2016 13:00:Negra Goodman RN) Accelerations Baby A: 10X10 (09/05/2016 12:45:Negra Goodman RN) Accelerations Baby A: 15X15 (09/05/2016 12:30:Negra Goodman RN) Accelerations Baby A: 15X15 (09/05/2016 12:15:Negra Goodman RN) Accelerations Baby A: 15X15 (09/05/2016 12:00:Negra Goodman RN) Accelerations Baby A: 15X15 (09/05/2016 11:30:Negra Goodman RN) Accelerations Baby A: 15X15 (09/05/2016 11:15:Negra Goodman RN) Accelerations Baby A: 15X15 (09/05/2016 11:00:Negra Goodman RN) Accelerations Baby A: 15X15 (09/05/2016 10:45:Negra Goodman RN) Accelerations Baby A: None (09/05/2016 10:30:Negra Goodman RN) Accelerations Baby A: None (09/05/2016 10:15:Negra Goodman RN) Accelerations Baby A: 15X15 (09/05/2016 10:00:Negra Goodman RN) Accelerations Baby A: 15X15 (09/05/2016 09:45:Negra Goodman RN) Accelerations Baby A: 15X15 (09/05/2016 09:30:Negra Goodman RN) Accelerations Baby A: 15X15 (09/05/2016 09:15:Negra Goodman RN) Accelerations Baby A: 15X15 (09/05/2016 09:00:Negra Goodman RN) Accelerations Baby A: 15X15 (09/05/2016 08:45:Negra Goodman RN) Accelerations Baby A: 15X15 (09/05/2016 08:30:Negra Goodman RN) Accelerations Baby A: 15X15 (09/05/2016 08:15:Negra Goodman RN) Accelerations Baby A: 15X15 (09/05/2016 08:00:Negra Goodman RN) Accelerations Baby A: None (09/05/2016 07:45:Negra Goodman RN) Accelerations Baby A: 15X15 (09/05/2016 07:15:Negra Goodman RN) Accelerations Baby A: 15X15 (09/05/2016 07:00:Magalys Parra RN) Accelerations Baby A: 15X15 (09/05/2016 06:45:Magalys Parra RN) Accelerations Baby A: None (09/05/2016 06:30:Magalys Parra RN) Accelerations Baby A: 15X15 (09/05/2016 06:15:Magalys Parra RN) Accelerations Baby A: 15X15 (09/05/2016 06:00:Magalys Parra RN) Accelerations Baby A: 15X15 (09/05/2016 04:16:Magalys Parra RN) Accelerations Baby A: 15X15 (09/05/2016 04:00:Magalys Parra RN) Accelerations Baby A: None (09/05/2016 03:30:Magalys Parra RN) Decelerations Baby A: Late (09/05/2016 22:16:Giuliana Alejo RN) Decelerations Baby A: Late (09/05/2016 22:00:Priscilla Monet RN) Decelerations Baby A: Late (09/05/2016 21:45:Priscilla Monet RN) Decelerations Baby A: Late (09/05/2016 21:30:Priscilla Monet RN) Decelerations Baby A: Late (09/05/2016 21:15:Priscilla Monet RN) Decelerations Baby A: Late (09/05/2016 20:45:Priscilla Monet RN) Decelerations Baby A: Late (09/05/2016 20:30:Priscilla Monet RN) Decelerations Baby A: Late (09/05/2016 20:15:Priscilla Monet RN) Decelerations Baby A: Late (09/05/2016 20:00:Priscilla Monet RN) Decelerations Baby A: Late (09/05/2016 19:45:Priscilla Monet RN) Decelerations Baby A: None (09/05/2016 19:30:Priscilla Monet RN) Decelerations Baby A: Late (09/05/2016 19:15:Chandrika Mccall RN) Decelerations Baby A: None (09/05/2016 19:00:Chandrika Mccall RN) Decelerations Baby A: Late (09/05/2016 18:45:Chandrika Mccall RN) Decelerations Baby A: Late (09/05/2016 18:30:Chandrika Mccall RN) Decelerations Baby A: Late (09/05/2016 18:15:Chandrika Mccall RN) Decelerations Baby A: Late (09/05/2016 18:00:Negra Goodman RN) Decelerations Baby A: None (09/05/2016 17:45:Negra Goodman RN) Decelerations Baby A: Variable (09/05/2016 17:30:Negra Goodman RN) Decelerations Baby A: Late (09/05/2016 17:15:Negra Goodman RN) Decelerations Baby A: None (09/05/2016 17:00:Ngera Goodman RN) Decelerations Baby A: None (09/05/2016 16:45:Nerga Goodman RN) Decelerations Baby A: Variable (09/05/2016 16:30:Negra Goodman RN) Decelerations Baby A: None (09/05/2016 16:15:Negra Goodman RN) Decelerations Baby A: None (09/05/2016 16:00:Negra Goodman RN) Decelerations Baby A: None (09/05/2016 15:45:Negra Goodman RN) Decelerations Baby A: None (09/05/2016 15:30:Negra Goodman RN) Decelerations Baby A: Variable (09/05/2016 15:15:Negra Goodman RN) Decelerations Baby A: None (09/05/2016 15:00:Negra Goodman RN) Decelerations Baby A: Late (09/05/2016 14:45:Negra Goodman RN) Decelerations Baby A: None (09/05/2016 14:30:Negra Goodman RN) Decelerations Baby A: None (09/05/2016 14:15:Negra Goodman RN) Decelerations Baby A: None (09/05/2016 14:00:Negra Goodman RN) Decelerations Baby A: Late (09/05/2016 13:45:Negra Goodman RN) Decelerations Baby A: Late (09/05/2016 13:30:Negra Goodman RN) Decelerations Baby A: Late (09/05/2016 13:15:Negra Goodman RN) Decelerations Baby A: Variable (09/05/2016 13:00:Negra Goodman RN) Decelerations Baby A: Late; Variable (09/05/2016 12:45:Negra Goodman RN) Decelerations Baby A: Early; Late (09/05/2016 12:30:Negra Goodman RN) Decelerations Baby A: None (09/05/2016 12:15:Negra Goodman RN) Decelerations Baby A: Early (09/05/2016 12:00:Negra Goodman RN) Decelerations Baby A: Late (09/05/2016 11:30:Negra Goodman RN) Decelerations Baby A: Late (09/05/2016 11:15:Negra Goodman RN) Decelerations Baby A: Late; Variable (09/05/2016 11:00:Negra Goodman RN) Decelerations Baby A: Late (09/05/2016 10:45:Negra Goodman RN) Decelerations Baby A: Late (09/05/2016 10:30:Negra Goodman RN) Decelerations Baby A: None (09/05/2016 10:00:Negra Goodman RN) Decelerations Baby A: None (09/05/2016 09:45:Negra Goodman RN) Decelerations Baby A: None (09/05/2016 09:30:Negra Goodman RN) Decelerations Baby A: None (09/05/2016 09:15:Negra Goodman RN) Decelerations Baby A: None (09/05/2016 09:00:Negra Goodman RN) Decelerations Baby A: None (09/05/2016 08:45:Negra Goodman RN) Decelerations Baby A: None (09/05/2016 08:30:Negra Goodman RN) Decelerations Baby A: None (09/05/2016 08:15:Negra Goodman RN) Decelerations Baby A: None (09/05/2016 08:00:Negra Goodman RN) Decelerations Baby A: Late (09/05/2016 07:45:Negra Goodman RN) Decelerations Baby A: None (09/05/2016 07:15:Negra Goodman RN) Decelerations Baby A: None (09/05/2016 07:00:Magalys Parra RN) Decelerations Baby A: None (09/05/2016 06:45:Magalys Parra RN) Decelerations Baby A: None (09/05/2016 06:30:Magalys Parra RN) Decelerations Baby A: None (09/05/2016 06:15:Magalys Parra RN) Decelerations Baby A: None (09/05/2016 06:00:Magalys Parra RN) Decelerations Baby A: None (09/05/2016 04:16:Magalys Parra RN) Decelerations Baby A: None (09/05/2016 04:00:Magalys Parra RN) Decelerations Baby A: None (09/05/2016 03:30:Magalys Parra RN) Assessment Flag: Admission Assessment (09/05/2016 02:59:QS system process)
--- NOTE | 2016-09-06 04:46 | L&D Discharge Summary ---
OB Discharge Summary Datetime Report Generated by CPN: 09/06/2016 04:45 DISCHARGE DIAGNOSIS Diagnosis/Symptoms: Other Diagnoses/Symptoms Other: Not in labor Gestation: 40.2 Number of Babies in Womb: 1 Parity: 1 DIET/ACTIVITY/RESTRICTIONS Diet: Regular Activity: Normal Activity TEACHING/INSTRUCTIONS/REFERRALS Instructions Given To: Patient Instructions Understood: Patient Verbalized Understanding; Support Person Verbalized Understanding Referrals: None Educational Materials- Other: kick counts and general discharge instructions DISCHARGE INFORMATION Discharged AMA: No Discharge Date/Time: 08/29/2016 17:11 Discharged To: Home Discharge Provider Name: Dr. Bradley Accompanied By: Mother Discharge Method: Ambulatory Condition: Stable FOLLOW UP INFORMATION Follow Up With: [facility] Follow Up On: As Scheduled Follow Up Phone Number: [email or web address] - Comments: Signs and symptoms to report to provider/return to hospital for to include vaginal bleeding, suspected SROM, decreased movement, contractions that increase in intensity/frequency/duration, and/or worsening of chief complaint of back pain/hip pain. Discussed the importance of proper body mechanics, possible kidney stone precuations and how to strain urine, and to follow up with provider in town as soon as possible. GENERAL INSTR-CALL PROVIDER IF: Contractions: Contractions or cramps become more frequent than 8 in one hour or 4 in 20 minutes; Regular painful contractions every 5 minutes or less for one hour. Time your contractions from the beginning of one to the beginning of the next Pressure: Pressure in your vagina or lower abdomen that may feel like the baby is pushing down Period Like Cramps: Period-like cramps or low dull backache that may come and go Cramps/Diarrhea: Abdominal cramps that may be accompanied by diarrhea Gush of Fluid/Blood: Gush of fluid or blood from your vagina (it is normal to have spotting after vaginal exam or intercourse) Vaginal Discharge: Change in the type or amount of vaginal discharge Decreased Movement: Your baby is not moving as much as usual- 4 movements in 1 hour after drinking and resting on side Temperature: Temperature greater than 100.0(F) orally
[2016-09-06] MEDS ORDERED: AMPICILLIN SOD INJ 2 GM VIAL ONE (05:37)
[2016-09-06] MEDS: AMPICILLIN SODIUM 2 GM in NORMAL SALINE 100 ML IV SCH ×4 (07:24→23:19)
[2016-09-06 07:34] LABS: HEMATOCRIT 24.4 % (36.0-47.0); HGB HCT DIFFERENCE -1.3; MEAN CORPUSCULAR HEMOGLOBIN 26.3 pg (27.0-33.4); MEAN CORPUSCULAR HGB CONC 31.6 g/dL (32.0-36.0); MEAN CORPUSCULAR VOLUME 83 fl (80-97); RED BLOOD COUNT 2.93 10^6/uL (3.72-5.28); RED CELL DISTRIBUTION WIDTH 14.3 % (11.5-14.0)
[2016-09-06 08:16] LABS: WHITE BLOOD COUNT 22.5 10^3/uL (4.0-10.5)
[2016-09-06 08:20] LABS: HEMOGLOBIN 7.7 g/dL (12.0-15.5)
[2016-09-06 08:54] LABS: ALANINE AMINOTRANSFERASE 22 U/L (9-52); ALBUMIN 2.4 g/dL (3.5-5.0); ALKALINE PHOSPHATASE 95 U/L (38-126); ANION GAP 8 (5-19); ASPARTATE AMINO TRANSFERASE 28 U/L (14-36); BILIRUBIN,TOTAL 0.4 mg/dL (0.2-1.3); BLOOD UREA NITROGEN 12 mg/dL (7-20); CALCIUM 9.1 mg/dL (8.4-10.2); CARBON DIOXIDE 20 mmol/L (22-30); CHLORIDE 108 mmol/L (98-107); CREATININE RESULT 0.71 mg/dL (0.52-1.25); GLUCOSE 138 mg/dL (75-110); POTASSIUM 4.1 mmol/L (3.6-5.0); SODIUM 135.6 mmol/L (137-145); TOTAL PROTEIN 4.6 g/dL (6.3-8.2)
[2016-09-06] MEDS: DOCUSATE SODIUM 100 MG CAPSULE PO SCH ×2 (10:09→17:36)
[2016-09-06] MEDS: PRENATAL VITAMIN W-O CA NO5/FE FUMARATE/FA CAPSULE PO SCH (10:09)
[2016-09-06] MEDS: OXYCODONE-ACETAMINOPHEN 5-325 MG TABLET PO PRN ×3 (13:17→22:02)
--- NOTE | 2016-09-06 15:40 | PDOC PROGRESS REPORT ---
Subjective-OB Subjective: Post Delivery Day: 1 21 year old s/p primary delivery. Had bell removed about 1hr ago , attempting walking around the unit at this time, urge to urinate. Reports labial edema not as bad as with first baby. Denies dizziness, blurry vision or other concerns. Reports back and side pain improving from last night, denies any needs at this time Physical Exam (OB) Vital Signs: Temp Pulse Resp BP Pulse Ox 97.6 F 86 16 106/58 L 97 09/06/16 07:16 09/06/16 07:16 09/06/16 07:16 09/06/16 07:16 09/06/16 07:16 Intake & Output 09/05/16 09/06/16 09/07/16 06:59 06:59 06:59 Output Total 450 Balance -450 Weight 105.05 kg - General General Appearance: Appears well In distress: None - Dressing Removed: - Dermabond Incision: Well Approximated Closure Type: Surgical Glue - Lochia Lochia Amount: Scant < 10 ml Lochia Color: Rubra/Red - Abdomen Description: Soft, Round Hernia Present: No Fundal Description: Firm, Midline Fundal Height: u/u - u/2 - Respiratory Respiratory Status: No respiratory distress - Genitourinary Female External exam: Other - bilateral labial edema noted - Extremities Upper extremity: Normal inspection Lower extremities: Normal inspection - Neurological Cognition: Normal Orientation: AAOx4 - Psychological Associated symptoms: Normal mood, Flat affect Objective-Diagnostic Laboratory: 09/06/16 06:56 09/06/16 06:56 09/06/16 09/06/16 06:56 06:56 WBC 22.5 H D RBC 2.93 L Hgb 7.7 L D Hct 24.4 L MCV 83 MCH 26.3 L MCHC 31.6 L RDW 14.3 H Plt Count 238 Sodium 135.6 L Potassium 4.1 Chloride 108 H Carbon Dioxide 20 L Anion Gap 8 BUN 12 Creatinine 0.71 Est GFR ( Amer) > 60 Est GFR (Non-Af Amer) > 60 Glucose 138 H Calcium 9.1 Total Bilirubin 0.4 AST 28 ALT 22 Alkaline Phosphatase 95 Total Protein 4.6 L Albumin 2.4 L Assessment and Plan(PN) - Assessment and Plan (1) Status post primary low transverse section Is this a current diagnosis for this admission?: YesPlan: continue stay, increase ambulation - Time Spent with Patient Time with patient: Less than 15 minutes - Disposition Anticipated Discharge: Home Within: within 24 hours
[2016-09-06] MEDS ORDERED: IBUPROFEN 800 MG TABLET PO SCH (20:00)
[2016-09-07] MEDS: CLINDAMYCIN 900 MG/D5W RTU 50 ML IV SCH (01:01)
[2016-09-07] MEDS: GENTAMICIN SULFATE 120 MG in DEXTROSE 5%-WATER 100 ML IV SCH (02:03)
[2016-09-07] MEDS: OXYCODONE-ACETAMINOPHEN 5-325 MG TABLET PO PRN ×4 (03:58→23:36)
[2016-09-07] MEDS: IBUPROFEN 800 MG TABLET PO SCH ×4 (05:31→23:37)
[2016-09-07] MEDS: DOCUSATE SODIUM 100 MG CAPSULE PO SCH ×2 (09:16→17:36)
[2016-09-07] MEDS: PRENATAL VITAMIN W-O CA NO5/FE FUMARATE/FA CAPSULE PO SCH (09:16)
--- NOTE | 2016-09-07 11:44 | PDOC PROGRESS REPORT ---
Subjective-OB Subjective: Post Delivery Day: 21 year old. Denies any needs at this time s/p delivery abdomen nontender pt grimacing with pain incision dry and intact binder in place iv heplock in place mild lochia/ ff@u-1 -bm desires one more day due to discomfort and pain reviewed with nurses to encourage pt and track pain management Physical Exam (OB) Vital Signs: Temp Pulse Resp BP Pulse Ox 98.0 F 95 16 105/59 L 99 09/07/16 08:51 09/07/16 08:51 09/07/16 08:51 09/07/16 08:51 09/07/16 08:51 Intake & Output 09/06/16 09/07/16 09/08/16 06:59 06:59 06:59 Intake Total 253 Output Total 2350 Balance -2096 - Dressing Removed: No Incision: Well Approximated Closure Type: Surgical Glue - Lochia Lochia Amount: Scant < 10 ml Lochia Color: Rubra/Red - Abdomen Description: Tender, Soft Hernia Present: No Fundal Description: Firm, Midline Fundal Height: u/u - u/2 Objective-Diagnostic Laboratory: 09/06/16 06:56 09/06/16 06:56 Assessment and Plan(PN) - Disposition Anticipated Discharge: Home
[2016-09-08] MEDS: IBUPROFEN 800 MG TABLET PO SCH ×2 (05:24→12:04)
[2016-09-08] MEDS: OXYCODONE-ACETAMINOPHEN 5-325 MG TABLET PO PRN ×2 (05:24→12:12)
[2016-09-08 08:44] VITALS: BP 122/65
[2016-09-08] MEDS: DOCUSATE SODIUM 100 MG CAPSULE PO SCH (10:16)
[2016-09-08] MEDS: PRENATAL VITAMIN W-O CA NO5/FE FUMARATE/FA CAPSULE PO SCH (10:16)
[2016-09-08 10:20] LABS: HEMATOCRIT 21.3 % (36.0-47.0); MEAN CORPUSCULAR HEMOGLOBIN 27.1 pg (27.0-33.4); MEAN CORPUSCULAR HGB CONC 33.2 g/dL (32.0-36.0); MEAN CORPUSCULAR VOLUME 82 fl (80-97); RED BLOOD COUNT 2.61 10^6/uL (3.72-5.28); RED CELL DISTRIBUTION WIDTH 14.8 % (11.5-14.0); WHITE BLOOD COUNT 8.8 10^3/uL (4.0-10.5)
[2016-09-08 10:22] LABS: HEMOGLOBIN 7.1 g/dL (12.0-15.5)
--- NOTE | 2016-09-08 11:09 | PDOC DISCHARGE SUMMARY ---
Final Diagnosis Discharge Date: 09/08/16 - Final Diagnosis (1) Macrosomic baby Is this a current diagnosis for this admission?: Yes (2) Status post primary low transverse section Is this a current diagnosis for this admission?: Yes Discharge Data - Discharge Medication Home Medications: Vit/Iron Fumarate/FA [ Tablet] 1 each PO DAILY 05/16/16 Reason(s) for Admission: PROM, Group B Strep Positive Procedures: NST Intrapartum Procedure(s): : Low Cervical, Transverse - Diagnosis Test Laboratory: Temp Pulse Resp BP Pulse Ox 97.6 F 97 19 122/65 97 09/08/16 08:10 09/08/16 08:10 09/08/16 08:10 09/08/16 08:10 09/08/16 08:10 09/05/16 09/05/16 09/06/16 02:57 03:41 06:56 RBC 3.83 2.93 L Hgb 10.4 L 7.7 L D Hct 31.0 L 24.4 L Urine Opiates Screen NEGATIVE 09/08/16 10:13 RBC 2.61 L Hgb 7.1 L Hct 21.3 L Urine Opiates Screen - Discharge information/Instructions Discharge Activity: Activity As Tolerated, No Driving, No Lifting Over 10 Pounds , No Lifting/Push/Pulling, Pelvic Rest, No tub bath Discharge Diet: Regular Disposition: HOME, SELF-CARE Follow up with: [facility] in: 5, Days
--- NOTE | 2016-09-12 23:43 | Delivery Summary ---
Del Sum A-C Datetime Report Generated by CPN: 09/12/2016 23:43 ADMISSION DATA Chief Complaint: Suspected Ruptured Membranes Indication for Induction: PROM Admission Impression: Term, Intrauterine ; No Active Labor; Ruptured Membranes Admit Provider Comments: 21yo ( at term 8#10oz. ectopic) presented to L_D with PROM at /-3 at approx 0200 with clear fluid. c/b Chlamydia and Trich during prior. Good JUAN for chlamydia. Trich to be tested on Urine at admission - none seen. Multiple UTI's during . Rubella Equivocal - needs vaccination pp. H/o nephrolithiasis. GBS pos - will give PCN for GBS prophy. ASCUS HRHPV pap smear. Admit to L_D - Pitocin for Induction for labor. Epidural upon patient request. Reassuring FWB and pelvis adequate for JOSELUIS. DELIVERY PERSONNEL Delivery Doctor:: Clau Lopez MD CLOTH REELER:: Farhana Choe CRNA Labor and Delivery Nurse:: Giuliana Alejo RN Nursery Nurse:: Lina Lima RN MSN Strain Technician/SENIOR UI UX DESIGNER: [facility] Strain Technician/SENIOR UI UX DESIGNER: Jocelynsvetlana Mcfarland, Additional Personnel: : Britta Ohara, FLOOR FRAMER MATERNAL INFORMATION Delivery Anesthesia: Epidural Medications After Delivery: Pitocin Drip 20 Units/1000ml NSS Meds After Delivery Comment: pitocin bolus per post protocol Estimated Blood Loss (ml): 600 Maternal Complications: Chorioamnionitis LABOR SUMMARY EDC: 09/03/2016 00:00 No. Babies in Womb: 1 Attempted: No Labor Anesthesia: Epidural LABOR INFORMATION Reason for Induction: Not Applicable Onset of Labor: 09/05/2016 08:43 Complete Dilatation: 09/05/2016 18:27 Oxytocin: Augmentation Group B Beta Strep: positive Steroids Given: None Reason Steroids Not Administered: Not Applicable MEMBRANES Membranes Rupture Method: Spontaneous Rupture of Membranes: 09/05/2016 02:00 Length of Rupture (hr): 20.70 Amniotic Fluid Color: Clear Amniotic Fluid Amount: Moderate Amniotic Fluid Odor: Normal STAGES OF LABOR Stage 1 hr: 9 Stage 1 min: 44 Stage 2 hr: 4 Stage 2 min: 15 BABY A INFORMATION Delivery Date/Time: 09/05/2016 22:42 Method of Delivery: Born in Route : No : N/A PRESENTATION/POSITION BABY A Presentation: Cephalic INFANT INFORMATION BABY A Gestational Age at Delivery: 40.2 Gestational Status: Full Term- 39- 40.6 Weeks Outcome : Liveborn Infant Condition : Stable Sex: Male WEIGHT/LENGTH BABY A Birthweight (gm): 5225 Weight (lb): 11 Infant Weight (oz): 8 Length (in): 22.75 Length (cm): 57.79 BABY B INFORMATION : N/A
--- NOTE | 2016-09-12 23:43 | Admission Physical ---
Datetime Report Generated by CPN: 09/12/2016 23:43 CURRENT ADMISSION Chief Complaint: Suspected Ruptured Membranes Indication for Induction: PROM Admit Plan: Admit to Unit; Initiate Labor Induction Protocol ALLERGIES Medication Allergies: No Medication Allergies: No Known Allergies (05/16/2016) Medication Allergies: None Latex: No Latex Allergies Food Allergies: None Environmental Allergies: None OBSTETRICAL HISTORY EDC: 09/03/2016 00:00 : 3 Para: 1 Para: 1 Term: 1 : 0 SAB: 1 IAB: 0 Ectopic: 1 Livin Cesareans: 0 VBACs: 0 Multiple Births: 0 Gestational Diabetes: No Rh Sensitization: No Incompetent Cervix: No SAM: No Infertility: No ART Treatment: No Uterine Anomaly: No IUGR: No Hx Previous C/S: No Macrosomia: No Hx Loss/Stillborn: No PIH: No Hx : No Placenta Previa/Abruption: No Depression/PP Depression: No PTL/PROM: No Post Hemorrhage: No Current Procedures: Ultrasound Obstetrical History Comments: G1: 2013; of female infant 8# 1oz G2: tubal in 2014; left fallopian tube removed G3: current SEE RECORDS Alcohol: No Marijuana : No Cocaine: No Other Illicit Drugs: No Cigarettes: Former Smoker. [id number] Cigarette Frequency: > 10 per day Cigarette Comments: Former pack a day smoker; stopped in January MEDICAL HISTORY Diabetes: No Blood Transfusion: No Pulmonary Disease (Asthma, TB): No Breast Disease: No Hypertension: No Cutter Grinder Surgery: No Heart Disease: No Hosp/Surgery: Yes Autoimmune Disorder: No Anesthetic Complications: No Kidney Disease: No Abnormal Pap Smear: No Neuro/Epilepsy: No Psychiatric Disorders: No Other Medical Diseases: No Hepatitis/Liver Disease: No Significant Family History: No Varicosities/Phlebitis: No Trauma/Violence : No Thyroid Dysfunction: No Medical History Comments: Labor and delivery of first baby; laprascopic left tube removal 2014 INFECTIOUS HISTORY Gonorrhea: No Genital Herpes: No Chlamydia: Yes Tuberculosis: No Syphilis: No Hepatitis: No HIV/AIDS Exposure: No Rash or Viral Illness: No HPV: Yes Infectious History Comments: chlamydia in 2014 (treated and JUAN WNL per pt); trichomoniasis in 2015 (treated per pt), hpv positive on pap smear PHYSICAL EXAM General: Normal HEENT: Normal Neurologic: Normal Thyroid: Normal Heart: Normal Lungs: Normal Breast: Deferred Back: Normal Abdomen: Normal Genitourinary Exam: Normal Extremities: Normal DTRs: Normal Pelvic Type: Adequate Vital Signs: Reviewed; Within Normal Limits Details Vital Signs: hypotension post epidural responsive to ephedrine VAGINAL EXAM Dilatation: 1 Effacement: 50 Station: -3 FETUS A EGA: 40.2 Monitoring: External US FHR- Baseline: 150 Variability: Moderate 6-25bpm Accelerations: 15X15 Decelerations: None FHR Category: Category I Presentation: Vertex Admit Comment: 21yo ( at term 8#10oz. ectopic) presented to L_D with PROM at /-3 at approx 0200 with clear fluid. c/b Chlamydia and Trich during prior. Good JUAN for chlamydia. Trich to be tested on Urine at admission - none seen. Multiple UTI's during . Rubella Equivocal - needs vaccination pp. H/o nephrolithiasis. GBS pos - will give PCN for GBS prophy. ASCUS HRHPV pap smear. Admit to L_D - Pitocin for Induction for labor. Epidural upon patient request. Reassuring FWB and pelvis adequate for JOSELUIS. PLANS FOR LABOR AND DELIVERY Labor and Delivery: None Pain Management: Epidural Feeding Preference: Formula Benefit of Breast Feed Discussed: Yes Circumcision: Yes INFORMED CONSENT Informed Consent Obtained: Vaginal Delivery; Risks, Benefits and Alternatives Discussed Signature: with User ID: [email or web address]
--- NOTE | 2016-09-14 06:00 | L&D Current Admission ---
Current Admit Datetime Report Generated by CPN: 09/14/2016 06:00 ADMISSION INFORMATION Current Admit Date/Time: 09/05/2016 03:21 (09/05/2016 03:20:Magalys Parra RN) Reason for Admission: Rupture of Membranes (09/05/2016 03:20:Magalys Parra RN) Chief Complaint: Suspected Rupture of Membranes (09/05/2016 02:59:Magalys Parra RN) EGA per Dates: 40.2 (09/05/2016 03:20:QS system process) EGA per US: 92.4 (09/05/2016 03:20:QS system process) Method of Arrival: Wheelchair (09/05/2016 03:20:Magalys Parra RN) Admitted From: Home (09/05/2016 03:20:Magalys Parra RN) Records Available: Yes (09/05/2016 03:20:Magalys Parra RN) General Admission Information: Reviewed (09/05/2016 03:20:Magalys Parra RN) BELONGINGS/ADVANCED DIRECTIVES Other Belongings: see belongings consent (09/05/2016 03:20:Magalys Parra RN) Disposition of Belongings: Kept with Patient (09/05/2016 03:20:Magalys Parra RN) Advance Direct for Healthcare: No, and Wants No Information (09/05/2016 03:20:Magalys Parra RN) Durable Power of Division Human Resources Manager: No (09/05/2016 03:20:Magalys Parra RN) Living Will: No (09/05/2016 03:20:Magalys Parra RN) Organ Donor: No (09/05/2016 03:20:Magalys Parra RN) Pt Understands Pt Rights: Yes (09/05/2016 03:20:Magalys Parra RN) LEARNING ASSESSMENT Knowledge Level: Understands L_D Process; Understands Care Activities; Understands Diagnosis (09/05/2016 03:20:Magalys Parra RN) Barriers to Learning: None; Visual Deficit; Hearing Deficit; Sensory Deficit; Cognitive Impairment; Communication Barrier; Emotional State; Pain (09/05/2016 03:20:Magalys Parra RN) Learning Readiness: Motivated (09/05/2016 03:20:Magalys Parra RN) Learns Best By: 1 to 1 Instruction (09/05/2016 03:20:Magalys Parra RN) Learning Needs: Labor and Delivery Process; Pain Management; Symptoms to Report; Treatment Plan; Medication; Diagnosis; Nutrition; Equipment; Care; Community Resources (09/05/2016 03:20:Magalys Parra RN) DOMESTIC VIOLANCE SCREENING Dom Viol Threatened/Hurt: No (09/05/2016 03:20:Mgaalys Parra RN) Hx of Abuse/Neglect past 2yrs: No (09/05/2016 03:20:Magalys Parra RN) Feel Unsafe Going Home: No (09/05/2016 03:20:Magalys Parra RN) Addt'l Observ Indicating Abuse: No (09/05/2016 03:20:Magalys Parra RN) Reason Unable to Complete Screen: N/A, Screen Completed (09/05/2016 03:20:Magalys Parra RN) Considered Personal Harm/Suicide: No (09/05/2016 03:20:Magalys Parra RN) NUTRITIONAL/FUNCTIONAL SCREENING Problem with Appetite >5 Days: No (09/05/2016 03:20:Magalys Parra RN) Chew/Swallow Difficulties: No (09/05/2016 03:20:Magalys Parra RN) Inappropriate Wt Gain/Loss: No (09/05/2016 03:20:Magalys Parra RN) Presence Skin Breakdown/Ulcer: No (09/05/2016 03:20:Magalys Parra RN) Special Diet: No (09/05/2016 03:20:aMgalys Parra RN) Pt Requests Cooker Casing Visit: No (09/05/2016 03:20:Magalys Parra RN) Hx of Any of the Following?: N/A (09/05/2016 03:20:Magalys Parra RN) New Diagnosis of: N/A (09/05/2016 03:20:Magalys Parra RN) Requires Assist w/Ambulation: No (09/05/2016 03:20:Magalys Parra RN) Uses Assist Device to Ambulate: No (09/05/2016 03:20:Magalys Parra RN) Pt Requires Help w/ADL's: No (09/05/2016 03:20:Magalys Parra RN)
--- NOTE | 2016-09-14 06:00 | L&D General Admission ---
General Admit Datetime Report Generated by CPN: 09/14/2016 06:00 INFORMATION Patient Age: 21 (05/16/2016 19:09:QS system process) EDC: 09/03/2016 00:00 (05/16/2016 19:21:Priscilla Monet RN) EDC per Ultrasound: 09/03/2015 00:00 (05/16/2016 19:21:Bel Luu RN) LMP: 11/28/2015 00:00 (05/16/2016 19:21:Priscilla Monet RN) : 3 (05/16/2016 19:21:Sally Vieira RN) Para: 1 (08/29/2016 17:21:Chandrika Mccall RN) Term: 1 (05/16/2016 19:21:Sally Vieira RN) : 0 (05/16/2016 19:21:Sally Vieira RN) Spontaneous Abortions: 1 (05/16/2016 19:21:Sally Vieira RN) Induced Abortions: 0 (05/16/2016 19:21:Sally Vieira RN) Livin (05/16/2016 19:21:Sally Vieira RN) Cesareans: 0 (05/16/2016 19:21:Sally Vieira RN) VBACs: 0 (05/16/2016 19:21:Belén Hernandez RN) Ectopic: 1 (05/16/2016 19:21:Sally Vieira RN) Multiple Births: 0 (05/16/2016 19:21:Belén Hernandez RN) Baby, Number in Womb: 1 (08/29/2016 17:21:Chandrika Mccall RN) CARE Primary Narrow Gauge Brakeman: Other-Annotate (05/16/2016 19:21:Sally Vieira RN) Narrow Gauge Brakeman Other: [facility] (05/16/2016 19:21:Sally Vieira RN) Month of 1st Visit: January (05/16/2016 19:21:Sally Vieira RN) Adequate Care: Yes (05/16/2016 19:21:Sally Vieira RN) Prepregnancy Weight (lb): 180 (05/16/2016 19:21:Sally Vieira RN) Prepregnancy Weight (kg): 81.8 (05/16/2016 19:21:QS system process) Height (in): 63 (09/08/2016 11:09:QS system process) ALLERGIES Medication Allergy: No (05/16/2016 19:21:Sally Ring, RN) Medication Allergies: No Known Allergies (05/16/2016) (05/16/2016 20:54:QS system process) Latex Allergy: No Latex Allergies (05/16/2016 19:21:Sally Ring, RN) Food Allergies: None (05/16/2016 19:21:Sally Ring, RN) Environmental Allergies: None (05/16/2016 19:21:Sally Ring, RN) COMMUNICATION Primary Language: Taiwanese (05/16/2016 19:21:Sally Ring, RN) Medical Tx Preferred Language: Taiwanese (05/16/2016 19:21:Sally Ring, RN) Communication Barrier(s): None (05/16/2016 19:21:Sally Ring, RN) DEMOGRAPHICS Address: [address] [place] [id number] (05/16/2016 19:09:QS system process) Zipcode: [address] (05/16/2016 19:09:QS system process) County: [place] (05/16/2016 19:21:Belén Hernandez RN) Home (05/16/2016 19:09:QS system process) SSN: [id number] (05/16/2016 19:09:QS system process) Next of Kin Name: CAMILLA HERNANDEZ (05/16/2016 19:09:QS system process) Next of Kin (05/16/2016 19:09:QS system process) Next of Kin Relationship: MO (05/16/2016 19:09:QS system process) Date of : 1995 (05/16/2016 19:09:QS system process) Marital Status: Single (05/16/2016 19:09:QS system process) Sex: Female (05/16/2016 19:09:QS system process) Race: (05/16/2016 19:09:QS system process) Ethnicity: Non- or (05/16/2016 19:09:QS system process) Jain: None (05/16/2016 19:09:QS system process) FOB Involved: No (05/16/2016 19:21:Belén Hernandez RN) DRUG AND ALCOHOL USE Alcohol: No (05/16/2016 19:21:Sally Vieira RN) Cigarettes: Former Smoker. [id number] (05/16/2016 19:21:Sally Vieira RN) Average Cigarettes Smoked: > 10 per day (05/16/2016 19:21:Sally Ring, RN) Cigarette Comments: Former pack a day smoker; stopped in January (05/16/2016 19:21:Sally Ring, RN) Marijuana: No (05/16/2016 19:21:Sally Ring, RN) Cocaine: No (05/16/2016 19:21:Sally Ring, RN) Other Illicit Drugs: No (05/16/2016 19:21:Sally Ring, RN) VACCINE HISTORY Influenza Vaccine: No (05/16/2016 19:21:Sally Ring, RN) Pneumococcal Vaccine: No (05/16/2016 19:21:Sally Ring, RN) Tetanus Vaccine: Uncertain (05/16/2016 19:21:Sally Ring, RN) Tdap Vaccine: Yes (05/16/2016 19:21:Sally Ring, RN) Tdap Date: 2013 (05/16/2016 19:21:Sally Ring, RN) Hepatitis B Vaccine: Yes (05/16/2016 19:21:Sally Ring, RN) Feeding Preference: Formula (05/16/2016 19:21:Sally Ring, RN) Benefit of Breast Feed Discussed: Yes (05/16/2016 19:21:Sally Vieira RN) Circumcision: Yes (05/16/2016 19:21:Magalys Parra RN) Classes Attended: No (05/16/2016 19:21:Magalys Parra RN) Tubal Ligation: No (05/16/2016 19:21:Magalys Parra RN) Tubal Authorization Signed: N/A (05/16/2016 19:21:Magalys Parra RN) Consent: N/A (05/16/2016 19:21:Magalys Parra RN) Consent Signed: N/A (05/16/2016 19:21:Magalys Parra RN) Pain Management Plans: Epidural (05/16/2016 19:21:Sally Vieira RN) Plans for Labor and Delivery: None (05/16/2016 19:21:Sally Vieira RN) Support Person: none (05/16/2016 19:21:Magalys Parra RN) Other Relationship: no support person (05/16/2016 19:21:Magalys Parra RN) Cultural/Spritual Practice: No (05/16/2016 19:21:Magalys Parra RN) Spir/Cult Dietary Needs: No (05/16/2016 19:21:Magalys Parra RN) LIVING SITUATION/DISCHARGE PLAN Living Arrangements: House (05/16/2016 19:21:Sally Vieira RN) Adequate Access to:: Electric; Heat; Refrigeration; Plumbing/Running water; Phone; Transportation (05/16/2016 19:21:Sally Vieira RN) WIC Program: Yes (05/16/2016 19:21:Sally Vieira RN) Discharge Customer Operations Representative Person: Camilla Hernandez (pt's mom) (05/16/2016 19:21:Sally Vieira RN) Person to Help after Discharge: Camilla (05/16/2016 19:21:Sally Vieira RN) Currently Using Commun Resources: Yes (05/16/2016 19:21:Sally Vieira RN) Specify Current Resource Used: Medicaid (05/16/2016 19:21:Sally Vieira RN) Outside Agency/Mock Up Maker: N/A (05/16/2016 19:21:Sally Vieira RN) Car Seat for Discharge: Yes (05/16/2016 19:21:Magalys Parra RN) Need Help to Obtain Car Seat: Will have one before discharge (05/16/2016 19:21:Sally Vieira RN) Adoption Requested: No (05/16/2016 19:21:Sally Vieira RN) Pt Contact w/ Post : N/A (05/16/2016 19:21:Sally Vieira RN) LABS Blood Type: A Positive (05/16/2016 19:21:Priscilla Monet RN) Hemoglobin: 7.1 L (Annotations: VERBAL RESULT GIVEN TO ALEAH YANEZ RN AT 1020 09/08/16 BY LESLIE WRIGHT. VERIFIED BY READ BACK.) (09/08/2016 10:13:QS system process) Hematocrit: 21.3 L (09/08/2016 10:13:QS system process) MCV: 82 (09/08/2016 10:13:QS system process) Group Beta Strep: positive (05/16/2016 19:21:Marcella Barker RN) Gonorrhea: Negative (05/16/2016 19:21:Priscilla Monet RN) Chlamydia: Negative (05/16/2016 19:21:Priscilla Monte RN) RPR/VDRL: Nonreactive (05/16/2016 19:21:Priscilla Monet RN) HIV Results: negative (05/16/2016 19:21:Priscilla Monet RN) Hepatitis B: Negative (05/16/2016 19:21:Priscilla Monet RN) Rubella: Equivocal (05/16/2016 19:21:Priscilla Monet RN) Varicella: Non Susceptible (Annotations: Data stored by N on behalf of user) (05/16/2016 19:21:Marcella Barker RN) Other Lab Procedures/Results: positive HPV (05/16/2016 19:21:Priscilla Monet RN) OB/PREVIOUS HISTORY LMP: 11/28/2015 00:00 (05/16/2016 19:21:Priscilla Monet RN) Previous Procedures: Ultrasound (05/16/2016 19:21:Sally Vieira RN) Current Procedures: Ultrasound (05/16/2016 19:21:Sally Vieira RN) History of Previous : No (05/16/2016 19:21:Sally Vieira RN) History of Gestational Diabetes: No (05/16/2016 19:21:Sally Vieira RN) History of PIH: No (05/16/2016 19:21:Sally Vieira RN) History of Incompetent Cervix: No (05/16/2016 19:21:Sally Vieira RN) History of Placenta Previa/Abrup: No (05/16/2016 19:21:Sally Vieira RN) History of Macrosomia: No (05/16/2016 19:21:Sally Vieira RN) History of IUGR: No (05/16/2016 19:21:Sally Vieira RN) History of Hemorrhage: No (05/16/2016 19:21:Sally Vieira RN) History of Loss/Stillborn: No (05/16/2016 19:21:Sally Vieira RN) History of : No (05/16/2016 19:21:Sally Vieira RN) History of D (Rh) Sensitization: No (05/16/2016 19:21:Sally Vieira RN) History Recurrent Loss/Stillborn: No (05/16/2016 19:21:Sally Vieira RN) History Depression/PP Depression: No (05/16/2016 19:21:Sally Vieira RN) History of Uterine Anomaly/SAM: No (05/16/2016 19:21:Sally Vieira RN) History of Infertility: No (05/16/2016 19:21:Sally Vieira RN) History of ART Treatment: No (05/16/2016 19:21:Sally Vieira RN) History of SAM: No (05/16/2016 19:21:Sally Vieira RN) Comments Obstetrical History: G1: 2013; of female infant 8# 1oz G2: tubal in 2014; left fallopian tube removed G3: current (05/16/2016 19:21:Sally Vieira RN) MEDICAL HISTORY Med Hx Diabetes: No (05/16/2016 19:21:Sally Vieira RN) Med Hx Hypertension: No (05/16/2016 19:21:Sally Vieira RN) Med Hx Heart Disease: No (05/16/2016 19:21:Sally Vieira RN) Med Hx Autoimmune Disorder: No (05/16/2016 19:21:Sally Vieira RN) Med Hx Kidney Disease/UTI: No (05/16/2016 19:21:Sally Vieira RN) Med Hx Neurologic/Epilepsy: No (05/16/2016 19:21:Sally Vieira RN) Med Hx Psychiatric Disorders: No (05/16/2016 19:21:Sally Vieira RN) Med Hx Hepatitis/Liver Disease: No (05/16/2016 19:21:Sally Vieira RN) Med Hx Varicosities/Phlebitis: No (05/16/2016 19:21:Sally Vieira RN) Med Hx Thyroid Dysfunction: No (05/16/2016 19:21:Sally Vieira RN) Med Hx Trauma/Violence: No (05/16/2016 19:21:Sally Vieira RN) Med Hx Blood Transfusion: No (05/16/2016 19:21:Sally Vieira RN) Med Hx Pulmonary (Asthma,TB): No (05/16/2016 19:21:Sally Vieira RN) Med Hx Breast: No (05/16/2016 19:21:Sally Vieira RN) 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 (05/16/2016 19:21:Sally Vieira RN) Med Hx Hospitalization/Surgery: Yes (05/16/2016 19:21:Sally Vieira RN) Med Hx Anesthetic Complications: No (05/16/2016 19:21:Sally Vieira RN) Med Hx Abnormal Pap Smear: No (05/16/2016 19:21:Sally Vieira RN) Other Medical Diseases: No (05/16/2016 19:21:Sally Vieira RN) Med Hx Significant Family Hx: No (05/16/2016 19:21:Sally Vieira RN) Details of Med/Surg Hx: Labor and delivery of first baby; laprascopic left tube removal 2014 (05/16/2016 19:21:Magalys Parra RN) INFECTIOUS HISTORY Inf Hx Gonorrhea: No (05/16/2016 19:21:Sally Vieira RN) Inf Hx Chlamydia: Yes (05/16/2016 19:21:Sally Vieira RN) Inf Hx Syphilis: No (05/16/2016 19:21:Sally Vieira RN) Inf Hx HIV/AIDS: No (05/16/2016 19:21:Sally Vieira RN) Inf Hx Human Papilloma Virus: Yes (05/16/2016 19:21:Priscilla Monet RN) Inf Hx Pt/Partner Genital Herpes: No (05/16/2016 19:21:Sally Vieira RN) Inf Hx Tuberculosis/Exposure: No (05/16/2016 19:21:Sally Vieira RN) Inf Hx Hepatitis B,C: No (05/16/2016 19:21:Sally Vieira RN) Inf Hx Rash or Viral Illness: No (05/16/2016 19:21:Sally Vieira RN) Details of Infectious Hx: chlamydia in 2014 (treated and JUAN WNL per pt); trichomoniasis in 2015 (treated per pt), hpv positive on pap smear (05/16/2016 19:21:Priscilla Monet RN) GENETIC HISTORY Gen Hx Age >=35 at BIN: No (05/16/2016 19:21:Sally Vieira RN) Gen Hx Thalassemia: No (05/16/2016 19:21:Sally Vieira RN) Gen Hx Congenital Heart Defect: No (05/16/2016 19:21:Sally Vieira RN) Gen Hx Neural Tube Defect: No (05/16/2016 19:21:Sally Vieira RN) Gen Hx Down's Syndrome: No (05/16/2016 19:21:Sally Vieira RN) Gen Hx Adrian-Sachs: No (05/16/2016 19:21:Sally Vieira RN) Gen Hx Matias: No (05/16/2016 19:21:Sally Vieira RN) Gen Hx Familial Dysautonomia: No (05/16/2016 19:21:Sally Vieira RN) Gen Hx Sickle Cell Disease/Trait: No (05/16/2016 19:21:Sally Vieira RN) Gen Hx Hemophilia/Blood Disorder: No (05/16/2016 19:21:Sally Vieira RN) Gen Hx Muscular Dystrophy: No (05/16/2016 19:21:Sally Vieira RN) Gen Hx Cystic Fibrosis: No (05/16/2016 19:21:Sally Vieira RN) Gen Hx Huntingtons Chorea: No (05/16/2016 19:21:Sally Vieira RN) Gen Hx Mental Retardation/Autism: No (05/16/2016 19:21:Sally Vieira RN) Gen Hx Tested for Fragile X: No (05/16/2016 19:21:Sally Vieira RN) Gen Hx Other Inher/Chromosomal: No (05/16/2016 19:21:Sally Vieira RN) Gen Hx Maternal Metabolic DO: No (05/16/2016 19:21:Sally Vieira RN) Gen Hx Pt Father or FOB Defect: No (05/16/2016 19:21:Sally Vieira RN) Gen Hx Other Genetic History: Yes (05/16/2016 19:21:Sally Vieira RN) Gen Hx Drugs/Meds since LMP: Yes (05/16/2016 19:21:Sally Vieira RN) Gen Hx Medications: PNV (05/16/2016 19:21:Sally Vieira RN) Details of Genetic History: FOB grandfather and aunt- multiple sclorosis (05/16/2016 19:21:Sally Vieira RN)
--- NOTE | 2016-09-28 16:54 | Operative Report ---
Operative Report DATE OF SURGERY: 09/05/16 OPERATION: Primary Section ANESTHESIA: Epidural PROCEDURE: PREOPERATIVE DIAGNOSIS: undelivered at [40+2] weeks, Arrest of Descent , Chorioamnionitis POSTOPERATIVE DIAGNOSIS: Same as above delivered Procedure: Primary Section via pfannensteil incision Program Paraprofessional:[None] Anesthesia: Epidural Anesthesia provider: [Dr. Trent, CARLA Jackson] Estimated blood loss: [600ml] Urine output: [250ml, clear urine at the end of procedure] IV fluids: [1200ml] Complications: [Uterine incision extension on the left. IVP obtained postoperatively with normal fill of left ureter.] Specimens: [None] Findings: [VMI, weight 11#5oz, Apgars 8/9, time of 2245, Direct OP presentation and asynclytic. Normal right fallopian tube and ovaries, left fallopian tube not visualized, possible arcuate uterus versus septum.] Indications: [21yo presented to L&D for PROM at 50/-3 at approximately 0200 in am with clear fluid. She was GBS positive and PCN received for GBS prophylaxis. EFW 8-9# on admission. Pt with uncomplicated labor course and reached cervical dilation of complete/complete/+1 and despite laboring down and pushing for approximately 2.5 hours no descent. Reviewed suspected OP presentation and reviewed prolonged 2nd stage and recommendations for Primary Section for arrest of descent. Risks/ benefits/alternatives reviewed and the patient desires to proceed with planned procedure.] Procedure: The patient was taken to the operating room where epidural anesthesia was found to be adequate. She was then prepped and draped in the normal sterile fashion and placed in the dorsal supine position with a leftward tilt. A Pfannenstiel skin incision was then made and carried through to the underlying layers of the fascia with the scalpel. The fascia was incised in the midline and the incision extended laterally with the Brown scissors. The superior aspect of the fascial incision was then grasped with Flora clamps elevated and the underlying rectus muscles dissected off [bluntly]. Attention was then turned to the inferior aspect of the fascial incision which in a similar fashion was grasped, tented up with Colin clamps, and the rectus muscles dissected off [bluntly]. The rectus muscles were then in the midline and the peritoneum at the amount identified and entered [bluntly]. The peritoneal incision was then extended superiorly and inferiorly with good visualization of the bladder. The bladder blade was inserted and the vesicouterine peritoneum identified grasped with Tanzanian pickups and entered sharply with the Metzenbaum scissors. This incision was then extended laterally with the Metzenbaum scissors and a bladder flap created digitally. The bladder blade was then reinserted and the lower uterine segment incised in a transverse fashion with the scalpel. The uterine incision was then extended bluntly. The bladder blade was removed and the 's head was delivered from cephalic presentation atraumatically. The nose and mouth were suctioned and the cord doubly clamped and cut. And the infant was handed off to waiting pediatricians. The placenta was then delivered spontaneously and the uterus exteriorized and cleared of all clots and debris. The uterine incision was then repaired with 1- 0 Vicryl in a running locked fashion and extension of the uterine incision repaired to the left repaired with good hemostasis. A second layer of the same suture was used to obtain hemostasis via imbrication of the initial layer. The bladder flap was then repaired with 3-0 chromic in a running fashion. The uterus was returned to the patient's abdomen and Interceed was placed overlying the uterine incision to prevent adhesions. The gutters were cleared of all clots and debris. All operative sites were noted to be hemostatic. The fascia was reapproximated with 0 Vicryl in a running fashion from each lateral edge to the midline. The skin was closed with 3-0 Monocryl in a running subcuticular fashion with overlying Dermabond for additional dressing as well as wound closure. The patient tolerated the procedure well. Sponge lap needle and instrument counts are correct times 2. 2 g of Ancef were given prior to skin incision. The patient was taken to the recovery area awake and in stable condition. Due to the proximity of the left uterine incision extension to the location of the ureter an IVP was obtained for evaluation. See separate report. Left ureter with fill and spill into the bladder and left ureter intact.
== END 2016-09-08 12:54 | disposition home or self-care (01) | DRG 766 ==
LOC: LC 02:44 → LR 03:40 → 2S 09-06 02:44
PROVIDERS: ADMIT Obstetrics & Gynecology; ATTEND Obstetrics & Gynecology
PROC: 10D00Z1 Extraction of Products of Conception, Low, Open Approach (ICD-10-PCS; principal; 2016-09-05)
DX: O41.1230 Chorioamnionitis, third trimester, not applicable or unspecified (principal); O66.2 Obstructed labor due to unusually large fetus; O99.334 Smoking (tobacco) complicating childbirth; O99.824 Streptococcus B carrier state complicating childbirth; O62.1 Secondary uterine inertia; F17.210 Nicotine dependence, cigarettes, uncomplicated; Z3A.40 40 weeks gestation of pregnancy; Z37.0 Single live birth
CPT/HCPCS: 1961; 36415; 74400; 80053; 80307; 81005; 84112; 85025; 85027; 86592; 86850; 86900; 86901; 94760; 94799; J0131; J0290; J0690; J1100; J1170; J1580; J1885; J2250; J2370; J2405; J2540; J2590; J2704; J2765; J3010; J3490